=== PATIENT | female | born 1940 | race Caucasian/White ===

== ENCOUNTER 2017-11-10 13:34 | Outpatient (CLI) | payer OTHER, SELFPAY ==
--- NOTE | 2017-11-10 14:21 | DI.DEXA_ITS ---
SYMPTOMS/DIAGNOSIS: OSTEOPENIA, M85.88 DEXA SCAN: DEXA scan was performed according to the usual protocol. Findings from the left hip scanning are a T score of 0.1 with left femoral neck T score of -0.3. Previous examination of September 2008 showed left hip T score of - 0.2. Scanning of the lumbar spine shows a T score of 3.4. Previous examination of September 2008 showed a lumbar T score of 0.1. Right forearm scanning shows a T score of -1.6. CONCLUSION: Findings consistent with osteopenia according to the WHO criteria. The lateral vertebral scanogram shows no evidence of a vertebral compression fracture.
== END 2017-11-10 13:54 ==
PROVIDERS: PCP Family Medicine; Visit Provider Family Medicine
DX: M85.88 Other specified disorders of bone density and structure, other site (principal)
CPT/HCPCS: 77080

== ENCOUNTER 2018-06-10 09:54 | Outpatient (CLI) | payer OTHER, SELFPAY ==
--- NOTE | 2018-06-10 09:51 | DI.RAD_ITS ---
SYMPTOM/DIAGNOSIS: LT SHOULDER PAIN LEFT SHOULDER: The humeral head rides high in the glenoid and there is narrowing of the acromiohumeral space. There is sclerosis of the acromion and superior portion of the humeral head. The findings would be consistent with a chronic rotator cuff tear.
== END 2018-06-10 10:14 ==
PROVIDERS: PCP Family Medicine; Visit Provider Orthopaedic Surgery
DX: M25.512 Pain in left shoulder (principal); M75.102 Unspecified rotator cuff tear or rupture of left shoulder, not specified as traumatic
CPT/HCPCS: 20610; 99201; 99213; 73030; J1040

== ENCOUNTER 2018-07-13 10:57 | Outpatient (CLI) | payer OTHER, SELFPAY ==
--- NOTE | 2018-07-13 11:10 | DI.RAD_ITS ---
SYMPTOM/DIAGNOSIS: RT KNEE PAIN RIGHT KNEE: Three views. No priors. There are post surgical changes of a right total knee replacement. No lucencies are seen in or about the orthopedic hardware to suggest loosening or infection. The bones are intact. The soft tissues are unremarkable. IMPRESSION: Right TKR.
== END 2018-07-13 11:17 ==
PROVIDERS: PCP Family Medicine; Referring Provider Family Medicine; Visit Provider Orthopaedic Surgery
DX: M25.561 Pain in right knee; Z96.651 Presence of right artificial knee joint; M25.512 Pain in left shoulder
CPT/HCPCS: 73562; 99211; 99212

== ENCOUNTER → 2018-09-14 10:14 | Outpatient (BNVA) | payer OTHER, SELFPAY | PROVIDERS: PCP Family Medicine; Referring Provider Family Medicine; Visit Provider Orthopaedic Surgery | DX: M25.512 Pain in left shoulder (principal); T84.84XA Pain due to internal orthopedic prosthetic devices, implants and grafts, initial encounter; Z96.651 Presence of right artificial knee joint; M75.82 Other shoulder lesions, left shoulder | CPT/HCPCS: 20610; 99211; 99213; J1040 ==

== ENCOUNTER 2018-10-15 10:33 | Outpatient (REF) | payer OTHER, SELFPAY ==
[2018-10-15 19:46] LABS: ALT 20 U/L (12-78); AST 18 U/L (15-37); Albumin 3.7 g/dL (3.4-5.0); Alkaline Phosphatase 86 U/L (46-116); Anion Gap 10.5 mmol/L (3-11); BUN 14 mg/dL (7-18); Bilirubin, Total 0.7 mg/dL (0.2-1.0); CO2 25.5 mmol/L (21.0-32.0); CREATININE 0.74 mg/dL (0.55-1.02); Calcium 8.6 mg/dL (8.5-10.1); Chloride 107 mmol/L (98-107); Glucose 94 mg/dL (70-100); Potassium 4.1 mmol/L (3.5-5.1); Sodium 143 mmol/L (136-145); Total Protein 7.3 g/dL (6.4-8.2)
[2018-10-15 19:58] LABS: HCT 36.8 % (36.0-46.0); HGB 10.7 g/dL (12.0-15.5); Mean Corp. HGB Concentration 29.1 g/dL (32.0-36.0); Mean Corpuscular Hemoglobin 21.4 pg (27.0-33.0); Mean Corpuscular Volume 73.6 fL (80-95); Platelet Count 408 x1000/uL (130-400); RBC Distribution Width 22.1 % (11.7-14.6)
[2018-10-19 10:59] LABS: Ferritin 19 ng/mL (8-388)
== END 2018-10-15 10:53 ==
LOC: NCHCN 10:33
PROVIDERS: PCP Family Medicine; Visit Provider Family Medicine
DX: C50.912 Malignant neoplasm of unspecified site of left female breast (principal); R01.1 Cardiac murmur, unspecified; D64.9 Anemia, unspecified
CPT/HCPCS: 80053; 85027; 82728

== ENCOUNTER 2018-11-18 15:42 | Outpatient (REF) | payer OTHER, SELFPAY ==
[2018-11-18 21:56] LABS: HGB 12.9 g/dL (12.0-15.5); Mean Corpuscular Hemoglobin 24.9 pg (27.0-33.0); Mean Platelet Volume 10.4 fL (8.0-11.0); Platelet Count 380 x1000/uL (130-400); RBC 5.18 m/cumm (4.00-5.20); RBC Distribution Width 29.9 % (11.7-14.6); White Blood Cell Count 5.54 k/cumm (4.4-10.8)
[2018-11-18 22:33] LABS: Ferritin 57 ng/mL (8-388)
== END 2018-11-18 16:02 ==
LOC: NCHCN 15:42
PROVIDERS: PCP Family Medicine; Visit Provider Family Medicine
DX: D64.9 Anemia, unspecified (principal); R60.0 Localized edema
CPT/HCPCS: 85027; 82728

== ENCOUNTER → 2018-12-13 10:00 | Outpatient (BNVA) | payer OTHER, SELFPAY | PROVIDERS: PCP Family Medicine; Referring Provider Family Medicine; Visit Provider Student in an Organized Health Care Education/Training Program | DX: M75.82 Other shoulder lesions, left shoulder (principal); M75.102 Unspecified rotator cuff tear or rupture of left shoulder, not specified as traumatic; M12.812 Other specific arthropathies, not elsewhere classified, left shoulder | CPT/HCPCS: 20610; 99214; J1040 ==

== ENCOUNTER → 2019-03-14 10:13 | Outpatient (BNVA) | payer OTHER, SELFPAY | PROVIDERS: PCP Family Medicine; Referring Provider Family Medicine; Visit Provider Student in an Organized Health Care Education/Training Program | DX: M75.102 Unspecified rotator cuff tear or rupture of left shoulder, not specified as traumatic (principal); M12.812 Other specific arthropathies, not elsewhere classified, left shoulder | CPT/HCPCS: 20610; 99212; 99213; J1040 ==

== ENCOUNTER → 2019-07-18 13:40 | Outpatient (BNVA) | payer OTHER, SELFPAY | PROVIDERS: PCP Family Medicine; Referring Provider Family Medicine; Visit Provider Student in an Organized Health Care Education/Training Program | DX: M75.102 Unspecified rotator cuff tear or rupture of left shoulder, not specified as traumatic (principal); M12.812 Other specific arthropathies, not elsewhere classified, left shoulder | CPT/HCPCS: 20610; 99213; J1040 ==

== ENCOUNTER 2019-10-18 21:03 | Outpatient (REF) | payer OTHER, SELFPAY ==
[2019-10-18 19:40] LABS: HCT 46.2 % (36.0-46.0); HGB 14.5 g/dL (11.2-15.7)
[2019-10-18 19:53] LABS: Anion Gap 8.5 mmol/L (3-11); BUN 13 mg/dL (7-18); CO2 26.5 mmol/L (21.0-32.0); CREATININE 0.72 mg/dL (0.55-1.02); Calcium 9.6 mg/dL (8.5-10.1); Chloride 105 mmol/L (98-107); Glucose 103 mg/dL (74-106); Potassium 4.1 mmol/L (3.5-5.1); Sodium 140 mmol/L (136-145); TSH (W/Ref FT4) 2.23 uIU/mL (0.36-3.74)
== END 2019-10-18 21:23 ==
LOC: NCHCN 21:03
PROVIDERS: PCP Family Medicine; Visit Provider Family Medicine
DX: R60.0 Localized edema (principal); D64.9 Anemia, unspecified; C50.912 Malignant neoplasm of unspecified site of left female breast
CPT/HCPCS: 80048; 84443; 85014; 85018

== ENCOUNTER → 2019-10-24 13:08 | Outpatient (BNVA) | payer OTHER, SELFPAY | PROVIDERS: PCP Family Medicine; Visit Provider Student in an Organized Health Care Education/Training Program | DX: M75.102 Unspecified rotator cuff tear or rupture of left shoulder, not specified as traumatic (principal); M12.812 Other specific arthropathies, not elsewhere classified, left shoulder; M21.41 Flat foot [pes planus] (acquired), right foot; M21.42 Flat foot [pes planus] (acquired), left foot | CPT/HCPCS: 20610; 99213; J1040 ==

== ENCOUNTER → 2020-01-26 09:57 | Outpatient (BNVA) | payer OTHER, SELFPAY | PROVIDERS: PCP Family Medicine; Referring Provider Family Medicine; Visit Provider Student in an Organized Health Care Education/Training Program | DX: M12.812 Other specific arthropathies, not elsewhere classified, left shoulder (principal); M75.102 Unspecified rotator cuff tear or rupture of left shoulder, not specified as traumatic | CPT/HCPCS: 20610; 99213; J1040 ==

== ENCOUNTER 2020-03-12 02:06 | Outpatient (CLI) | payer OTHER, SELFPAY ==
--- NOTE | 2020-03-12 14:24 | DI.MAMMO_ITS ---
EXAM: MG MAMMO SCREENING 60 MIN DUR CLINICAL HISTORY: PERSONAL H/O BREAST CA,Z12.39. TECHNIQUE: Bilateral full field digital CC and MLO mammographic images were obtained with 3D tomosyn thesis and utilizing computer aided detection (CAD). Additional mammographic views of the right breas t were performed. COMPARISON: Prior mammograms dating back to 2010, the most recent being January 2019. This patient underwent lumpectomy of the left breast 2009. FINDINGS: There are no new left breast findings. The lumpectomy site remain stable in appearance. In the opposite-right breast there is suggestion of nodular densities. These, however, compress out with additional spot 3D compression views. There are no malignant-appearing microcalcification group s. There is no new significant architectural distortion nor do skin thickening-retraction. IMPRESSION: No radiographic evidence of malignancy in left breast. Stable left breast lumpectomy site. Benign-appearing right breast findings. BI-RADS Category 2 - Benign Findings Breast Density - Category B - Scattered areas of fibroglandular density Breast density Category C or D implies that the patient has dense breast tissue. Dense breast tissue can make it harder to find cancer on a mammogram. Dense breast tissue is also associated with an incr eased risk of breast cancer. This information about the result of the mammogram report was provided to the patient to raise their awareness. Use this report when you speak with the patient about their risks for breast cancer, which includes their family history. At that time, you may recommend additional screening tests (Ultrasoun d or MRI) as these tests may add significant information. A negative radiographic report should not delay biopsy if a dominant or clinically suspicious mass is present. Up to ten percent of cancers are not identified on mammography. A negative report may reinforce clinical impression. Adenosis and dense breasts may obscure an underlying neoplasm. False positive reports average 6 to 10%. Patient will receive a letter notifying them of these results.
== END 2020-03-12 02:26 ==
PROVIDERS: PCP Family Medicine; Visit Provider Family Medicine
DX: Z12.31 Encounter for screening mammogram for malignant neoplasm of breast (principal); Z85.3 Personal history of malignant neoplasm of breast
CPT/HCPCS: 77063; 77067

== ENCOUNTER 2020-04-03 13:02 | Outpatient (CLI) | payer OTHER, SELFPAY ==
--- NOTE | 2020-04-03 10:45 | DI.RAD_ITS ---
EXAM: XR SHOULDER LT COMPLETE 2+V CLINICAL HISTORY: left shoulder pain. TECHNIQUE: 2D digital imaging was performed. COMPARISON: CR XR shoulder LT complete 2+V from 06/10/2018 CR XR knee RT 3V AP,lat,jen from 07/13/2018 FINDINGS: There has been further interval erosion of the distal clavicle and undersurface of the acromion. The acromion is markedly thinned. There is no significant deformity of the humeral head. There is flat tening of the humeral head superiorly. The humeral head is again noted to be high riding drafter assistant w ith a chronic rotator cuff tear. There is spurring at the glenoid. IMPRESSION: Severe deformities of the distal clavicle, acromion and humeral head. Findings could the secondary t o longstanding rotator cuff tear and or rheumatoid arthritis. DATA REPOSITORY: RADIATION DOSE DELIVERED:
== END 2020-04-03 13:22 ==
PROVIDERS: PCP Family Medicine; Referring Provider Family Medicine; Visit Provider Student in an Organized Health Care Education/Training Program
DX: M25.512 Pain in left shoulder (principal); M95.8 Other specified acquired deformities of musculoskeletal system; M75.102 Unspecified rotator cuff tear or rupture of left shoulder, not specified as traumatic; M12.812 Other specific arthropathies, not elsewhere classified, left shoulder
CPT/HCPCS: 99213; 73030

== ENCOUNTER → 2020-05-15 13:05 | Outpatient (BNVA) | payer OTHER, SELFPAY | PROVIDERS: PCP Family Medicine; Referring Provider Family Medicine; Visit Provider Student in an Organized Health Care Education/Training Program | DX: M75.102 Unspecified rotator cuff tear or rupture of left shoulder, not specified as traumatic (principal); M12.812 Other specific arthropathies, not elsewhere classified, left shoulder | CPT/HCPCS: 20610; 99213; J1040 ==

== ENCOUNTER → 2020-08-08 09:57 | Outpatient (BNVA) | payer OTHER, SELFPAY | PROVIDERS: PCP Family Medicine; Referring Provider Family Medicine; Visit Provider Student in an Organized Health Care Education/Training Program | DX: M75.102 Unspecified rotator cuff tear or rupture of left shoulder, not specified as traumatic (principal); M12.812 Other specific arthropathies, not elsewhere classified, left shoulder | CPT/HCPCS: 20610; 99213; J1040 ==

== ENCOUNTER → 2020-12-12 09:57 | Outpatient (BNVA) | payer OTHER, SELFPAY | PROVIDERS: PCP Family Medicine; Referring Provider Family Medicine; Visit Provider Student in an Organized Health Care Education/Training Program | DX: M75.102 Unspecified rotator cuff tear or rupture of left shoulder, not specified as traumatic (principal); M12.812 Other specific arthropathies, not elsewhere classified, left shoulder | CPT/HCPCS: 20610; 99213; J1040 ==

== ENCOUNTER 2021-03-18 01:45 | Outpatient (CLI) | payer MEDICARE, SELFPAY ==
--- NOTE | 2021-03-18 14:00 | DI.US_ITS ---
APPROVED REPORT EXAM: Comprehensive 2D, Doppler, and color-flow Echocardiogram Other Information Study Quality: Fair. Technically limited study due to body habitus. Conclusion Normal left ventricular wall thickness and chamber size. Estimated ejection fraction is 55 to 60%. There is hypokinesis of the inferior and posterior strickland Normal right ventricular size and systolic function Both atria are normal in size The aortic valve is trileaflet and sclerotic without stenosis or regurgitation Mitral annular calcification . Mild mitral regurgitation Normal tricuspid valve with trace regurgitation. Estimated right ventricular systolic pressure is no rmal at 26 mmHg Mildly dilated ascending aorta Wall motion Left Ventricle The left ventricle is normal size. The left ventricular systolic function is normal. The left ventric ular ejection fraction is within the normal range. There is normal left ventricular wall thickness. I nferior and posterior wall motion abnormalities There is no ventricular septal defect visualized. LVE F is 55-60%. Right Ventricle The right ventricle is normal size. The right ventricular systolic function is normal. The RVSP is 26 .6 mmHg. Atria The left atrium size is normal. The right atrium size is normal. The interatrial septum is intact wit h no evidence for an atrial septal defect. Aortic Valve The Aortic valve is sclerotic. Aortic valve is trileaflet. There is no aortic valvular stenosis. No a ortic regurgitation is present. Mitral Valve Mild mitral annular calcification. No evidence of mitral valve stenosis. Mild mitral regurgitation. Tricuspid Valve The tricuspid valve is normal in structure. There is no tricuspid valve stenosis. Trace tricuspid reg urgitation. Pulmonic Valve The pulmonary valve is normal in structure. There is no pulmonic valvular stenosis. Trace pulmonic re gurgitation. Great Vessels The aortic root is normal in size. The ascending aorta is mildly dilated. Aortic arch is not well vis ualized. IVC is normal in size and collapses >50% with inspiration. Pericardium There is no pericardial effusion. 2D Dimensions IVSD d PLAX 0.96 cm F: 0.6-1.0 LV Vol A2C d MOD 70.9 mL LVPW d PLAX 0.96 cm F: 0.6 - 1.0 LV Vol A4C d MOD 91.8 mL LVID d PLAX 4.31 cm F: 3.8 - 5.2 LA vol/ BSA A4C s A-L 25.1 mL/m2 LVDs 3.10 cm F: 2.2 - 3.5 LA Area A4C s MOD 17.21 cm2 Ao Root d 3.26 cm F: 2.7 - 3.3 LV EF A4C MOD 50.5 % Ao Asc Diam d 3.62 cm F: 2.3 - 3.1 LV EF A2C MOD 50.1 % LV EF Teichholz 53.5 % LV EF Biplane MOD 50.4 % LVEF (Huddleston's) 50.39 % F: 54 - 74 SV 41.14 mL LV Volume 62.89 mL F: 46 - 106 SV Index 22.25 mL/m2 LV Volume Index 33.99 mL/m2 F: 29 - 61 LV Vol Biplane MOD 81.6 mL FS 27.35 % M-Mode TAPSE 1.96 cm (M/F) >1.7 LV Diastology MV E' medial 0.051 (>0.07 m/s) E/A Ratio 0.8 LV E/e MED 18.20 (<14) MV E Vmax 0.93 (0.4-1.3 m/s) MV E' lateral 0.049 (>0.1 m/s) MV A Vmax 1.15 (0.4-1.3 m/s) LV E/e LAT 18.95 (<14) MV E/A Ratio 0.80 MV E/E' medial 18.25 MV E/E' lateral 18.98 Aortic Valve LVOT Area 2.88 cm2 AoV Area Vmax 1.57 cm2 LVOT Vmax 1.05 m/s AoV Area/ BSA (Vmax) 0.85 cm2/m2 LVOT Mean Ed. 0.67 m/s GIANNA Mean Ed. 1.30 cm2 LVOT Peak Grad 4.4 mmHg GIANNA Mean Ed. Index 0.71 cm2/m2 LVOT Mean Grad 2.2 mmHg LVOT VTI 0.182 m LVOT Diam s 1.90 cm AoV Vmax 1.93 m/s Velocity Ratio 0.54 AoV Mean Ed. 1.49 m/s AoV Peak Grad 14.9 mmHg LVOT SV 52.41 mL AoV Mean Grad 9.6 mmHg AoV VTI 0.320 m AoV Area VTI 1.64 cm2 AoV Area/ BSA (VTI) 0.89 cm/m2 Mitral Valve MV DT 273 (160-240 msec) MV PHT 79 msec MV Area PHT 2.77 cm2 MV VTI 0.289 m MV Area VTI 1.82 (4.0-6.0 cm2) Pulmonary Valve PV Vmax 1.04 (0.5-1.5 m/s) RVOT Peak Gr. 2.16 mmHg PV Peak Grad 4.4 mmHg RVOT Mean Gr. 1.00 mmHg PV Mean Grad 2.3 mmHg RVOT VTI 0.104 m PV VTI 0.148 m RVOT Vmax 0.74 m/s Tricuspid Valve TR Peak Grad 23.5 mmHg TR Vmax 2.43 m/s RA Pressure 3.00 mmHg RVSP (TR) 26.6 mmHg
--- NOTE | 2021-03-18 15:06 | DI.MAMMO_ITS ---
Exam(s) MG MAMMO SCREENING 60 MIN DUR EXAM: MG MAMMO SCREENING 60 MIN DUR CLINICAL HISTORY: SCREENING, PERSONAL H/O BREAST CA,C50.912 TECHNIQUE: Mammograms were interpreted according to the usual protocol including computer analysis w [employer] CAD system, tomosynthesis and C-view imaging. COMPARISON: 2011 through 2020 FINDINGS: The breasts are composed of scattered fibroglandular densities, Breast Density category B. The patient has a history left lumpectomy. There are dystrophic calcifications in and scarring at th e biopsy site. This has a stable appearance. No suspicious masses or suspicious microcalcifications are seen in either breast.. No abnormal axillary lymph nodes are seen. There has been no significant change from prior exams. IMPRESSION: BI-RADS Cat 2 - Benign Findings Yearly screening mammography is recommended. Breast Density - Category B, scattered fibroglandular densities. A negative radiographic report should not delay biopsy if a dominant or clinically suspicious mass is present. Up to ten percent of cancers are not identified on mammography. A negative report may reinforce clinical impression. Adenosis and dense breasts may obscure an underlying neoplasm. False positive reports average 6 to 10%. Patient will receive a letter notifying them of these results.
== END 2021-03-18 02:05 ==
PROVIDERS: PCP Family Medicine; Visit Provider Family Medicine
DX: R06.09 Other forms of dyspnea (principal); R60.0 Localized edema; Z12.31 Encounter for screening mammogram for malignant neoplasm of breast; I34.0 Nonrheumatic mitral (valve) insufficiency; Z85.3 Personal history of malignant neoplasm of breast
CPT/HCPCS: 77063; 77067; 93306

== ENCOUNTER → 2021-03-27 09:00 | Outpatient (BNVA) | payer MEDICARE, SELFPAY | PROVIDERS: PCP Family Medicine; Referring Provider Family Medicine | DX: M75.102 Unspecified rotator cuff tear or rupture of left shoulder, not specified as traumatic (principal); M12.812 Other specific arthropathies, not elsewhere classified, left shoulder | CPT/HCPCS: 20610; J1040 ==

== ENCOUNTER 2021-04-26 08:15 | Outpatient (CLI) | payer MEDICARE, SELFPAY | END 2021-04-26 08:16 | disposition home or self-care (01) | LOC: DI.CARD 08:16 | PROVIDERS: PCP Family Medicine; Visit Provider Internal Medicine Cardiovascular Disease | DX: R69 Illness, unspecified (principal) | CPT/HCPCS: 93010 ==

== ENCOUNTER 2021-05-13 08:34 | Outpatient (CLI) | payer MEDICARE, SELFPAY ==
--- NOTE | 2021-05-13 08:30 | RT.EKG_ITS ---
APPROVED REPORT Exam: Resting ECG Reason for Exam: ZHANG Patient Location: O HR:108 bpm ECG Measurements Heart Rate 108 AXIS MO 158 P 18 QRSd 104 QRS -50 QT 354 T 21 QTc 475 Conclusion Sinus tachycardia...rate> 99 Incomplete RBBB and LAFB...axis(240,-40), S>R II III aVF Right ventricular hypertrophy...prominent R or R' w/ RAD or SHELBY
== END 2021-05-13 08:35 | disposition home or self-care (01) ==
LOC: DI.CARD 08:35
PROVIDERS: PCP Family Medicine; Visit Provider Internal Medicine Cardiovascular Disease
DX: R06.00 Dyspnea, unspecified (principal); R00.0 Tachycardia, unspecified; R94.31 Abnormal electrocardiogram [ECG] [EKG]
CPT/HCPCS: 93010

== ENCOUNTER → 2021-05-13 10:35 | Outpatient (BNVA) | payer MEDICARE, SELFPAY | PROVIDERS: PCP Family Medicine; Referring Provider Family Medicine; Visit Provider Internal Medicine Cardiovascular Disease | DX: R07.9 Chest pain, unspecified (principal); E78.5 Hyperlipidemia, unspecified; R06.00 Dyspnea, unspecified | CPT/HCPCS: 93005; 99204; 99214 ==

== ENCOUNTER 2021-06-04 00:49 | Outpatient (CLI) | payer MEDICARE, SELFPAY ==
--- NOTE | 2021-06-04 09:00 | DI.NM_ITS ---
APPROVED REPORT Exam: Pharmacologic Patient Location: Out-Patient Room/Bed: Stress Nurse: Milka William RN Ordering Provider:JOHN ALARCON, Contact Number: BMI: 35.47 Baseline Rhythm: Sinus Rhythm w/ PVCs Comment: abnormal R wave progression Indications: DYSPNEA ON EXERTION. Medical History Medical History: HLD, Systolic heart murmur, Mild memory disturbance, Depression, Breast cancer, Lump ectomy (left) Cardiac Medications: Aspirin Allergies: No known drug allergies Cardiac Risk Factors: FHX of CAD, Hyperlipidemia, Obesity Previous Cardiac Procedures: None Pretest Chest Pain Characteristics: No chest pain Exercise History: Sedentary Physical Disabilities: Feet Lung Sounds: Clear to auscultation Heart Sounds: Regular Stress Test Details Test: Pharmacologic stress testing performed using 0.4 mg of regadenoson per 5 mL given IV over 10 s econds. Reason for pharmacologic stress test: physical limitation. Nuclear Acquisition: Rest Tc-99m/Stress Tc-99m 1 day Rest Isotope: Tc-99m Sestamibi. Dose: 12.0 Date: 06/04/2021 Injection Time: 0930 Stress Isotope: Tc-99m Sestamibi. Dose: 36.5 Date: 06/04/2021 Injection Time: 1126 HR Resting HR Supine: 93 bpm Max Heart Rate (APMHR): 137.808057 bpm Target HR (85% APMHR): 116.804009 bpm Max HR Achieved: 107 bpm % of APMHR: 78.10 Recovery HR: 101 bpm BP Resting BP Supine: 132/78 mmHg Max BP: 138/72 mmHg Recovery BP: 132/70 mmHg ECG Resting ECG: Sinus Rhythm Ectopy: PVCs Stress ECG: Sinus Tachycardia ST Change: No significant ST segment changes noted, No significant ST segment changes noted Arrhythmia: PVCs, couplets, occasional PAC Recovery ECG: Sinus Tachycardia Recovery ST Change: No significant ST segment changes noted Recovery Arrhythmia: PVCs, couplets, occasional PAC Clinical Stress Symptoms: None Rate Pressure Product: [id number] Stress ECG Conclusion 1. The resting electrocardiogram showed left anterior fascicular block and abnormal R wave progressio n 2. Patient underwent low level exercise coupled with pharmacologic stress 3. Peak heart rate achieved was 78% of predicted for age 4. The electrocardiographic portion of the test was nondiagnostic due to inadequate heart rate 5. 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 Radiologist Interpretation by: Elian Johnson MD Interpretation Date/Time: 06/05/2021 08:58:52
[2021-06-04] MEDS: Regadenoson 0.4 MG/5 ML SYR IVP (11:19)
== END 2021-06-04 01:09 ==
PROVIDERS: PCP Family Medicine; Visit Provider Internal Medicine Cardiovascular Disease
DX: R06.09 Other forms of dyspnea (principal); I44.4 Left anterior fascicular block
CPT/HCPCS: 93016; 93018; 78452; 93017; J2785

== ENCOUNTER 2021-06-14 02:52 | Outpatient (CLI) | payer MEDICARE, SELFPAY ==
[2021-06-14 11:18] LABS: Calculated LDL 113 mg/dL (<100); Cholesterol 209 mg/dL (<200); HDL Cholesterol 71 mg/dL (40-60); Triglyceride 125 mg/dL (<150)
== END 2021-06-14 02:53 | disposition home or self-care (01) ==
LOC: LBO 02:52
PROVIDERS: PCP Family Medicine; Visit Provider Internal Medicine Cardiovascular Disease
DX: R07.9 Chest pain, unspecified (principal)
CPT/HCPCS: 36415; 80061

== ENCOUNTER → 2021-06-18 09:51 | Outpatient (BNVA) | payer MEDICARE, SELFPAY | PROVIDERS: PCP Family Medicine; Referring Provider Family Medicine; Visit Provider Internal Medicine Cardiovascular Disease | DX: R06.00 Dyspnea, unspecified (principal) | CPT/HCPCS: 99214; 99213 ==

== ENCOUNTER 2021-07-30 19:08 | Outpatient (REF) | payer MEDICARE, SELFPAY ==
[2021-07-30 19:46] LABS: Anion Gap 5.9 mmol/L (3-11); BUN 17 mg/dL (7-18); CO2 28.1 mmol/L (21.0-32.0); CREATININE 0.9 mg/dL (0.55-1.02); Calcium 9.4 mg/dL (8.5-10.1); Chloride 108 mmol/L (98-107); Glucose 120 mg/dL (74-106); Potassium 4.1 mmol/L (3.5-5.1); Sodium 142 mmol/L (136-145); TSH (W/Ref FT4) 1.95 uIU/mL (0.36-3.74)
== END 2021-07-30 19:09 | disposition home or self-care (01) ==
LOC: NCHCN 19:08
PROVIDERS: PCP Family Medicine; Visit Provider Family Medicine
DX: R60.0 Localized edema (principal)
CPT/HCPCS: 80048; 84443

== ENCOUNTER → 2021-08-09 00:05 | Outpatient (CLI) | payer MEDICARE, SELFPAY ==
--- NOTE | 2021-08-09 | DI.DEXA_ITS ---
Exam(s) XR DEXA BONE DENSITY W/WO SHEA EXAM: XR DEXA BONE DENSITY W/WO SHEA CLINICAL HISTORY: OSTEOPENIA M85.80 MENOPAUSAL Z78.0 SCREENING TECHNIQUE: COMPARISON: Comparison examination is 11/10/2017. FINDINGS: Lateral Spine Image: Unremarkable. No compression deformities identified. Left hip: Total T-Score: -0.4. This compares to 0.1 on the prior examination. This is a decrease in the bone m ineral density. Total Z-Score: 1.9 T- and Z-scores: Within normal limits. There is osteopenia in the femoral neck with a T-score of -2.1 . Lumbar Spine: Total T-Score: 3.7. This compares to 3.4 on the prior examination. This is an increase in the bone m ineral density. Total Z-Score: 6.5 T- and Z-scores: Within normal limits. IMPRESSION: No evidence of osteoporosis.
== END ==
PROVIDERS: PCP Family Medicine; Visit Provider Family Medicine
DX: M85.88 Other specified disorders of bone density and structure, other site (principal); Z78.0 Asymptomatic menopausal state
CPT/HCPCS: 77080

== ENCOUNTER → 2021-08-12 11:13 | Outpatient (BNVA) | payer MEDICARE, SELFPAY | PROVIDERS: PCP Family Medicine; Referring Provider Family Medicine; Visit Provider Physician Assistant | DX: M75.102 Unspecified rotator cuff tear or rupture of left shoulder, not specified as traumatic (principal); M12.812 Other specific arthropathies, not elsewhere classified, left shoulder | CPT/HCPCS: 20610; J1040 ==

== ENCOUNTER 2021-11-10 09:48 | Emergency (ER) | payer MEDICARE, SELFPAY ==
[2021-11-10 10:11] VITALS: BP 107/73; PULSE 102; RESP 16; TEMP 36.4; O2SAT 95
--- NOTE | 2021-11-10 10:15 | DI.RAD_ITS ---
Exam(s) XR RIBS RT W PA LAT CHEST EXAM: XR RIBS RT W PA LAT CHEST CLINICAL HISTORY: Fall, right rib pain TECHNIQUE: 2D digital imaging was performed. Two views of the chest and three views of the right ri bs were performed. COMPARISON: CR XR shoulder LT complete 2+V from 06/10/2018 CT,NM,TMT NM MPI REST STRESS GRP from 06/04/2021 CR XR DEXA BONE DENSITY W/WO SHEA from 08/09/2021 FINDINGS: MEDIASTINUM: Tortuous, calcified aorta. HEART: Normal size. PULMONARY VASCULATURE: Normal. LUNGS: Fibrotic changes. Blunting at the right costophrenic angle. R. PLEURAL SPACE: Minimal blunting is noted at the right costophrenic angle which could be chronic or re present a tiny effusion.. No pneumothorax. BONE:Degenerative changes are noted in the spine and shoulders. RIGHT RIBS: There are multiple lateral right rib fractures which are difficult which are not well del ineated due to overlap. Involve at least the 3rd through 6th ribs. OTHER FINDINGS:Normal. IMPRESSION: 1. Minimal blunting at the right costophrenic angle. 2. Multiple lateral right rib fractures. DATA REPOSITORY: RADIATION DOSE DELIVERED:
--- NOTE | 2021-11-10 10:15 | ED.GENADUL_ITS ---
Discharge Plan Disposition Patient Disposition: HOME Condition: Stable Discharge Details Clinical Impression: Multiple fractures of ribs of right side, Pleural effusion on right Primary Care Provider: Jeanne Mosqueda V ED Provider: Norma Villegas Home Meds and New Rx's Prescriptions: Continued biotin 10 mg tablet 10 mg PO DAILY (DME) Custom Accomodative Shoes Qty: 1 0RF Rx Instructions: Please fit and make bilateral accomodative shoes for extreme width of feet with collapse and medial prominence. multivitamin [Daily Vitamin] 1 EACH tablet 1 ea PO DAILY calcium carbonate-vitamin D3 [Calcium 600 with Vitamin D3] 1 EACH tablet 1 ea PO BID aspirin [Aspirin Low-Strength] 81 MG tablet,chewable 81 mg PO DAILY glucosamine-chondroitin [Osteo Bi-Flex] 1 EACH tablet 1 ea PO BID cetirizine [Zyrtec] 10 mg tablet 10 mg PO DAILY PRN ferrous sulfate 325 mg (65 mg iron) tablet 325 mg PO DAILY furosemide [Lasix] 20 mg tablet 20 mg PO DAILY Qty: 90 3RF Rx Instructions: 1 daily as needed Discharge Instructions Instructions: Rib Fracture (ED) Additional Instructions: X-ray shows broken ribs on the right side and small amount of fluid in your right lower lung. Take 400mg Ibuprofen every 4-6 hours as needed for pain. Use incentive spirometer as directed. Return to the ER for any worsening shortness of breath, worsening pain, fever, productive cough or any concerns. Follow up with primary care provider in 3-5 days. Return to ED sooner if any worsening or concerns. Increase oral fluids. Please take Tylenol or Ibuprofen with food every 4-6 hours as needed for pain and swelling. Alternate ice and heat to the area. Referrals: Jeanne Mosqueda MD [Primary Care Provider] - 5 days Medical Decision Making 1124: Spoke with Dr. Rowell, who recommends incentive spirometer, alternating tylenol and Ibuprofen, and alternating ice and heat. Imaging Data Radiologic Study: Imaging: X-Ray Radiologist's impression: Imaging protocol: Radiologic exam of the chest. Views: 2 views. COMPARISON: No relevant prior studies available. FINDINGS: Lungs: Unremarkable. No consolidation or pulmonary edema. Pleural spaces: Small right pleural effusion with pleural thickening in the lateral right mid lung. No pneumothorax. Heart/Mediastinum: Heart size is normal. The thoracic aorta is tortuous and calcified. The gail are not enlarged. Bones/joints: Please refer to the concu rrently performed right rib series, reported separately. IMPRESSION: Small right pleural effusion. Imaging protocol: Radiologic exam of the Right ribs. Views: 2 views. COMPARISON: No relevant prior studies available. FINDINGS: Bones/joints: The bones are diffusely demineralized, which limits sensitivity for detection of acute nondisplaced fractures. There are multiple acute lateral right rib fractures these in ball of the lateral right 3rd, 4th, 5th, and 6th ribs and possibly the 7th rib. There are degenerative changes throughout the spine and in both shoulders. Soft tissues: Unremarkable. IMPRESSION: Nondisplaced fractures of the lateral right 3rd-6th ribs. HPI General Mode of arrival: ambulatory . Date/Time Provider Initiated Documentation: 11/10/21 10:13 . Limitations to Documentation: no limitations . Information obtained by: patient, RN notes reviewed and old records reviewed . HPI Narrative: 81-year-old female presents to the ER status post fall 1 week ago which she reports tripped on a omega surface. She landed on her right side. She is complaining of posterior right rib pain. Denies any head pain, neck pain or loss of consciousness. She denies any shortness of breath. Denies any shoulder elbow or wrist pain. Denies any pelvis pain. She also reports some intermittent right leg pain. No obvious deformity or swelling. She is accompanied by her family past medical history includes hysterectomy lumpectomy, osteoarthritis, obesity, heart murmur, diverticulosis. Related Data Home Medications Medication Instructions Recorded Confirmed aspirin 81 mg chewable tablet 81 mg PO DAILY 02/17/13 08/12/21 (Aspirin Low-Strength) calcium carbonate 600 mg-vitamin 1 ea PO BID 02/17/13 08/12/21 D3 5 mcg (200 unit) tablet (Calcium 600 with Vitamin D3) glucosamine-chondroitin 250 mg-200 1 ea PO BID 02/17/13 08/12/21 mg tablet (Osteo Bi-Flex) multivitamin (Daily Vitamin tablet) 1 ea PO DAILY 02/17/13 08/12/21 Custom Accomodative Shoes #1 ea 10/24/19 08/12/21 biotin 10 mg tablet 10 mg PO DAILY 10/24/19 08/12/21 cetirizine 10 mg tablet (Zyrtec) 10 mg PO DAILY PRN 03/21/21 08/12/21 ferrous sulfate 325 mg (65 mg 325 mg PO DAILY 03/21/21 08/12/21 iron) tablet furosemide 20 mg tablet (Lasix) 20 mg PO DAILY #90 tabs 10/14/21 Previous Rx's Medication Instructions Recorded Custom Accomodative Shoes #1 ea 10/24/19 furosemide 20 mg tablet (Lasix) 20 mg PO DAILY #90 tabs 10/14/21 Allergies Allergy/AdvReac Type Severity Reaction Status Date / Time No Known Allergies Allergy Verified 11/10/21 10:02 General Stated Complaint: Orthopedic MIKEY: 3 Review of Systems All systems reviewed & are unremarkable except as noted in HPI and below PFSH All Active Problems (Updated 11/10/21 @ 11:30 by Norma Villegas NP) Multiple fractures of ribs of right side (Acute) Pleural effusion on right (Acute) Hyperlipidemia (Acute) ZHANG (dyspnea on exertion) (Acute) Acquired bilateral flat feet (Acute) Left rotator cuff tear arthropathy (Chronic) 80mg Depo-Medrol injection: 08/08/2020, 12/12/2020, 03/27/2021 Left shoulder pain (Acute) Facial basal cell cancer (Acute) Medical History Anemia ASCENDING COLON AVM Basal cell carcinoma of nose BREAST CANCER LEFT Diverticulosis Edema LIMB Foot deformity Hallux valgus Heart murmur SYSTOLIC Heartburn Hip pain, left Macular degeneration Mild memory disturbance Obesity Osteoarthritis of both hands Osteopenia Skin lesion TUBULAR ADENOMAS Uterine prolapse CONGENITAL BODY ASYMMETRY Surgical History Abdominal hysterectomy (~10/2011) PARTIAL Breast, Lumpectomy (12/09/09) LEFT Colonoscopy - IV Sedation (11/19/09) Hx of total knee replacement BILATERAL Recurrent major depression in partial remission (11/19/09) ASCENDING COLON AVM Family History Mother Alzheimer's disease Father Heart disease Lung cancer Sister Cirrhosis of liver Brother Acute myocardial infarction at 58 of [place] Brother Diabetes Heart disease [place] Brother Heart disease Stroke Son Heart disease age 40 [place] with stents Social History Smoking/Tobacco Use Status: Never Smoking risk assessment performed?: Yes Alcohol Intake: current Alcohol Intake frequency: 0-2 drinks per day Drug use: Never Substance use type: does not use Household members: none Current gender identity: female What type of physical activity do you participate in: none Do you feel safe at home: Yes Exam Narrative Exam Narrative: General: Well Developed, Awake and Alert, conversant. Skin: Warm and Dry HEENT: Head: No palpable deformities, Normocephalic Eyes: Pupils PERRLA, EOM's intact. No periorbital eccymosis or step off Ears: Canal patent. Tympanic membranes are clear . No durbin's sign, no hemptympanum. Nose/Face: Atraumatic. Facial bones nontender to palpation and stable with manipulation. Mouth/Throat: No intraoral trauma. Teeth and mandible are intact. Neck: No midline tenderness, no step off, no deformity to palpation of C-spine. Trachea midline. Chest: No surface trauma. Nontender without crepitus or deformity. Lungs clear to ausculatation bilaterally. Heart: RRR, no rubs, murmurs or gallop. Abdomen: No abrasions, ecchymosis, or surface trauma. Nondistended. Nontender to palpation no guarding, rebound, or rigidity. Pelvis: Nontender to palpation and stable to compression. Femoral pulses strong and equal Extremities: no surface trauma. Sensation intact. Peripheral pulses intact and equal. Neuro: ANO x4, GCS 15, cranial nerves II through XII intact. Motor and sensory exam nonfocal. Reflexes are symmetric. Chest Chest: normal inspection of the chest and tenderness rib right mid-scapular line involving the 9th rib Resp Effort & Inspection: normal respiratory effort and able to speak in complete sentences Auscultation: clear to auscultation bilaterally Course Vital Signs Vital signs: Vital Signs Temperature 36.4 C 11/10/21 10:11 Pulse 102 H 11/10/21 10:11 Respiratory Rate 16 11/10/21 10:11 Blood Pressure 107/73 11/10/21 10:11 Pulse Oximetry 95 11/10/21 10:11 Temperature 36.4 C 11/10/21 10:11 Temperature Source Oral 11/10/21 10:11 Pulse 102 H 11/10/21 10:11 Respiratory Rate 16 11/10/21 10:11 Respiratory Effort Non-Labored 11/10/21 10:02 Blood Pressure 107/73 11/10/21 10:11 Pulse Oximetry 95 11/10/21 10:11 Oxygen Delivery Method Room Air 11/10/21 10:11 Oxygen Flow Rate 0 11/10/21 10:11 Pain Level 5 11/10/21 09:58 PAWSS Have you Been Recently Intoxicated or Drunk Within the Last 30 days?: No Have you Ever Experienced Previous Episodes of Alcohol Withdrawal?: No Have you ever Experienced Withdrawal Seizures?: No Have you ever Experienced Delirium Tremens(DT)s?: No Have you ever undergone Alcohol Rehabilitation Treatment (i.e, inpt ot outpatient treatment programs)?: No Have you ever Experienced Blackouts?: No Have you ever Combined Alcohol with other Downers within the last 90 days?: No Have you ever Combined Alcohol with any other Substance of Abuse during the last 90 days?: No Positive Blood Alcohol level on Presentation? [PCS.BAL]: No Evidence of Increased Autonomic Activity (i.e. HR>120, tremor, sweating, agitation, nausea)?: No Result: 0
--- NOTE | 2021-11-10 11:07 | DI.VRAD_ITS ---
PROCEDURE INFORMATION: Exam: XR Right Ribs Exam date and time: 11/10/2021 10:49 AM Age: 81 years old Clinical indication: Injury or trauma; Other: Fall, right rib pain; Rib area; Blunt trauma (contusions or hematomas) TECHNIQUE: Imaging protocol: Radiologic exam of the Right ribs. Views: 2 views. COMPARISON: No relevant prior studies available. FINDINGS: Bones/joints: The bones are diffusely demineralized, which limits sensitivity for detection of acute nondisplaced fractures. There are multiple acute lateral right rib fractures these in ball of the lateral right 3rd, 4th, 5th, and 6th ribs and possibly the 7th rib. There are degenerative changes throughout the spine and in both shoulders. Soft tissues: Unremarkable. IMPRESSION: Nondisplaced fractures of the lateral right 3rd-6th ribs. PROCEDURE INFORMATION: Exam: XR Chest Exam date and time: 11/10/2021 10:49 AM Age: 81 years old Clinical indication: Injury or trauma; Other: Fall, right rib pain; Rib area; Blunt trauma (contusions or hematomas) TECHNIQUE: Imaging protocol: Radiologic exam of the chest. Views: 2 views. COMPARISON: No relevant prior studies available. FINDINGS: Lungs: Unremarkable. No consolidation or pulmonary edema. Pleural spaces: Small right pleural effusion with pleural thickening in the lateral right mid lung. No pneumothorax. Heart/Mediastinum: Heart size is normal. The thoracic aorta is tortuous and calcified. The gail are not enlarged. Bones/joints: Please refer to the concurrently performed right rib series, reported separately. IMPRESSION: Small right pleural effusion. Dictated and Authenticated by: Esther Quintanilla MD. Ordering:MATTHEW Green MD
[2021-11-10] MEDS: Ibuprofen 400 MG TAB PO (12:07)
== END 2021-11-10 11:45 | disposition home or self-care (01) ==
PROVIDERS: Emergency Provider Registered Nurse Emergency; PCP Family Medicine
DX: S22.41XA Multiple fractures of ribs, right side, initial encounter for closed fracture (principal); J90 Pleural effusion, not elsewhere classified; W01.0XXA Fall on same level from slipping, tripping and stumbling without subsequent striking against object, initial encounter
CPT/HCPCS: 99284; 71046; 71100

== ENCOUNTER 2022-01-22 20:52 | Inpatient (IN) | payer MEDICARE, SELFPAY ==
[2022-01-22] VITALS (35 sets, daily range): BP systolic 65–122; BP diastolic 17–91; PULSE 92–170; RESP 21–44; O2SAT 89–94
--- NOTE | 2022-01-22 20:45 | RT.EKG_ITS ---
APPROVED REPORT Exam: Resting ECG Reason for Exam: dizzy Patient Location: E HR:110 bpm ECG Measurements Heart Rate 110 AXIS MN 150 P 29 QRSd 137 QRS -64 QT 396 T -34 QTc 541 Conclusion Sinus tachycardia with irregular rate...V-rate 98-135, variation>10% Right bundle branch block...QRSd>120, terminal axis(90,270) Probable inferior infarct, age indeterminate...Q>35mS, T neg, II III aVF
--- NOTE | 2022-01-22 21:00 | DI.CT_ITS ---
Exam(s) CT HEAD WO EXAM: CT HEAD WO CLINICAL HISTORY: confusion. TECHNIQUE: Imaging Protocol: Axial computed tomography images with coronal and sagittal reformatted images were created and reviewed COMPARISON: No exams were available for comparison FINDINGS: There is moderate generalized cerebral atrophy and there is presumed old left parietal occipital inf arct. No evidence of acute intracranial hemorrhage, mass effect, or midline shift. The orbital structures are unremarkable. The temporal bone structures appear intact. Calvarium: Normal. Visualized Paranasal sinuses/Mastoids: Clear. IMPRESSION: No evidence of acute intracranial process. RADIATION DOSE DELIVERED: Total DLP Total DLP DATA REPOSITORY: All CT scans at this facility are submitted to the National Radiology Data Registry (NRDR) Dose Index Registry (DIR) with the [employer] (A[employer]). RADIATION OPTIMIZATION: All CT scans at this facility use at least one of these dose optimization te chniques: automated exposure control; mA and/or kV adjustment per patient size (includes targeted exa ms where dose is matched to clinical indication); or iterative reconstruction.
--- NOTE | 2022-01-22 21:00 | DI.RAD_ITS ---
Exam(s) XR CHEST 2V PA LATERAL EXAM: XR CHEST 2V PA LATERAL CLINICAL HISTORY: confusion, mental status change TECHNIQUE: COMPARISON: CR,XR XR RIBS RT W PA LAT CHEST from 11/10/2021 FINDINGS: The heart is at the upper limits of normal in size. Lungs are predominantly clear except for questio n of new area of faint opacity in the right upper mid lung zone, suspicious for developing pneumoniti s. No pleural effusion seen. IMPRESSION: Possible developing right-sided pneumonia, appropriate follow-up films requested. RADIATION DOSE DELIVERED: Total DLP
--- NOTE | 2022-01-22 21:04 | ED.GENADUL_ITS ---
Discharge Plan Disposition Patient Disposition: Admit to [facility] Condition: Stable Discharge Details Clinical Impression: Cellulitis of leg, right, Pneumonia, Acute kidney injury Primary Care Provider: Jeanne Mosqueda V ED Provider: Chava Can Home Meds and New Rx's Prescriptions: No Action biotin 10 mg tablet 10 mg PO DAILY (DME) Custom Accomodative Shoes Qty: 1 0RF Rx Instructions: Please fit and make bilateral accomodative shoes for extreme width of feet with collapse and medial prominence. multivitamin [Daily Vitamin] 1 EACH tablet 1 ea PO DAILY calcium carbonate-vitamin D3 [Calcium 600 with Vitamin D3] 1 EACH tablet 1 ea PO BID aspirin [Aspirin Low-Strength] 81 MG tablet,chewable 81 mg PO DAILY glucosamine-chondroitin [Osteo Bi-Flex] 1 EACH tablet 1 ea PO BID cetirizine [Zyrtec] 10 mg tablet 10 mg PO DAILY PRN ferrous sulfate 325 mg (65 mg iron) tablet 325 mg PO DAILY furosemide [Lasix] 20 mg tablet 20 mg PO DAILY Qty: 90 3RF Rx Instructions: 1 daily as needed Medical Decision Making 81-year-old female who lives independently but has plans to move in with her son at his home in [place] next week. She presents via EMS after neighbors found her to be confused in the home. EMS was called and the son began to drive from his home in [place]. Upon arrival the patient is pleasant but mildly confused. She has no neurologic deficits. She is noted to have had a question of incontinence of urine at home and an exam that reveals right lower extremity cellulitis that is new per her family. Differential includes UTI, cellulitis, dehydration, electrolyte abnormality, given mental status changes must broaden the differential diagnosis as well to include stroke or occult pneumonia.. Patient IV access established and laboratories obtained. Patient referred for CT imaging of the head, chest x- ray. Diagnostic studies: Elevated lactic acid of 2.5. White blood cell count is 14, hematocrit 42, platelets 262. Left shift present. BUN is 44 and creatinine 2.0. Magnesium slightly low at 1.7. Chest x-ray with question new right midlung patchy infiltrate. CT scan of the head unremarkable for acute process. Broad-spectrum antibiotic coverage initiated given patient's potential for sepsis. Fluids initiated for acute kidney injury. Patient will require admission. I discussed the case with the patient's son Alvaro Zamora who is in the area. His cell phone number is [phone]. He states his mother would want to have a brief trial (approximately 24 to 48 hours) of full resuscitation but would not want prolonged life support. Sign Out No HPI General Mode of arrival: EMS . Date/Time Provider Initiated Documentation: 01/22/22 20:55 . Limitations to Documentation: no limitations . Information obtained by: patient and EMS . History of Present Illness 81 year old F presents to the emergency department with the chief complaint of Confusion and incontinence of urine today, described as mild, and is localized to the head. Patient reports no radiation. Patient started experiencing this hour(s) and it has been intermittent and now resolved. No relieving factors improve symptom(s), No exacerbating factors reported . Patient notes confusion; denies fever/chills, headaches, loss of appetite, nausea/vomiting and syncope. Patient did receive the following treatments prior to arrival, none Related Data Home Medications Medication Instructions Recorded Confirmed aspirin 81 mg chewable tablet 81 mg PO DAILY 02/17/13 08/12/21 (Aspirin Low-Strength) calcium carbonate 600 mg-vitamin 1 ea PO BID 02/17/13 08/12/21 D3 5 mcg (200 unit) tablet (Calcium 600 with Vitamin D3) glucosamine-chondroitin 250 mg-200 1 ea PO BID 02/17/13 08/12/21 mg tablet (Osteo Bi-Flex) multivitamin (Daily Vitamin tablet) 1 ea PO DAILY 02/17/13 08/12/21 Custom Accomodative Shoes #1 ea 10/24/19 08/12/21 biotin 10 mg tablet 10 mg PO DAILY 10/24/19 08/12/21 cetirizine 10 mg tablet (Zyrtec) 10 mg PO DAILY PRN 03/21/21 08/12/21 ferrous sulfate 325 mg (65 mg 325 mg PO DAILY 03/21/21 08/12/21 iron) tablet furosemide 20 mg tablet (Lasix) 20 mg PO DAILY #90 tabs 10/14/21 Previous Rx's Medication Instructions Recorded Custom Accomodative Shoes #1 ea 10/24/19 furosemide 20 mg tablet (Lasix) 20 mg PO DAILY #90 tabs 10/14/21 Allergies Allergy/AdvReac Type Severity Reaction Status Date / Time No Known Allergies Allergy Verified 11/10/21 10:02 General MIKEY: 3 Review of Systems Narrative: No report of fall. Patient denies headache. No cough or shortness of breath. No recent fever. 8 systems reviewed and otherwise negative PFSH All Active Problems (Updated 01/22/22 @ 22:37 by Roddy Montoya) Sepsis syndrome (Acute) Acute dehydration (Acute) Multiple fractures of ribs of right side (Acute) Cellulitis of leg, right (Acute) Pneumonia (Acute) Acute kidney injury (Acute) Hyperlipidemia (Acute) ZHANG (dyspnea on exertion) (Acute) Acquired bilateral flat feet (Acute) Left rotator cuff tear arthropathy (Chronic) 80mg Depo-Medrol injection: 08/08/2020, 12/12/2020, 03/27/2021 Left shoulder pain (Acute) Facial basal cell cancer (Acute) Medical History Anemia ASCENDING COLON AVM Basal cell carcinoma of nose BREAST CANCER LEFT Diverticulosis Edema LIMB Foot deformity Hallux valgus Heart murmur SYSTOLIC Heartburn Hip pain, left Macular degeneration Mild memory disturbance Obesity Osteoarthritis of both hands Osteopenia Skin lesion TUBULAR ADENOMAS Uterine prolapse CONGENITAL BODY ASYMMETRY Surgical History Abdominal hysterectomy (~10/2011) PARTIAL Breast, Lumpectomy (12/09/09) LEFT Colonoscopy - IV Sedation (11/19/09) Hx of total knee replacement BILATERAL Recurrent major depression in partial remission (11/19/09) ASCENDING COLON AVM Family History Mother Alzheimer's disease Father Heart disease Lung cancer Sister Cirrhosis of liver Brother Acute myocardial infarction at 58 of [place] Brother Diabetes Heart disease [place] Brother Heart disease Stroke Son Heart disease age 40 [place] with stents Social History Smoking/Tobacco Use Status: Never Smoking risk assessment performed?: Yes Alcohol Intake: current Alcohol Intake frequency: 0-2 drinks per day Drug use: Never Substance use type: does not use Household members: none Current gender identity: female What type of physical activity do you participate in: none Do you feel safe at home: Yes Exam Narrative Exam Narrative: GEN: awake, alert. Pleasant, well groomed, interactive. HEAD: Normocephalic, atraumatic ENT: Mucous membranes dry, oropharynx unremarkable, External ear exam unremarkable EYES: PERRL, EOMI NECK: Full ROM, no SERGO, no menigismus CHEST/RESP: Nontender, clear to auscultation bilateral, no wheeze/rhonchi/rales CARDIOVASCULAR: Tachycardic, question faint systolic ejection murmur,, no rub hong. 2+ Rad pulse bilateral ABDOMEN: Soft, nontender, no mass. +Bowel sounds EXT: Full ROM, the right leg is edematous with erythema below the knee that is warm to the touch and blanches. Neuro: Grossly normal neurologic exam, conversant, interactive. Psych: Speech fluent, thoughts congruent, affect flat
[2022-01-22 21:42] LABS: Lactate 2.5 mmol/L (0.6-1.4)
[2022-01-22 21:45] LABS: Abs Immature Grans 0.14 10^3/uL (0.0-0.06); Basophils % 0.7; HCT 42.8 % (36.0-46.0); HGB 13.8 g/dL (11.2-15.7); Immature Grans % 0.9; Lymphocytes % 3.9; MCH 29.2 pg (27.0-33.0); MCHC 32.2 % (32.0-36.0); MCV 91 fL (80-95); Neutrophils % 92.5; Platelet Count 262 10^3/uL (130-400); RBC 4.73 10^6/uL (3.93-5.22); RDW 17.2 % (11.7-14.6); RDW-SD 57.5 fL; WBC 14.74 10^3/uL (4.4-10.8)
[2022-01-22 21:48] LABS: Absolute Lymphocyte Count 0.57 10^3/uL (1.2-3.4); Absolute Monocyte Count 0.29 10^3/uL (0.1-0.8); Absolute Neutrophil Count 13.63 10^3/uL (1.2-6.7)
[2022-01-22 22:01] LABS: ALT 49 U/L (14-59); AST 158 U/L (15-37); Albumin 3.1 g/dL (3.4-5.0); Alkaline Phosphatase 72 U/L (46-116); Anion Gap 11.5 mmol/L (3-11); BUN 44 mg/dL (7-18); Bilirubin, Total 1.3 mg/dL (0.2-1.0); CO2 24.5 mmol/L (21.0-32.0); Calcium 8.5 mg/dL (8.5-10.1); Chloride 101 mmol/L (98-107); Estimated GFR 24.33 (mL/min/1.73m2); Glucose 115 mg/dL (74-106); Magnesium 1.7 mg/dL (1.8-2.4); Potassium 3.8 mmol/L (3.5-5.1); Sodium 137 mmol/L (136-145); Total Protein 7.2 g/dL (6.4-8.2); Troponin I < 50 ng/L (<or=60)
--- NOTE | 2022-01-22 22:03 | DI.VRAD_ITS ---
PROCEDURE INFORMATION: Exam: CT Head Without Contrast Exam date and time: 01/22/2022 21:48 Age: 81 years old Clinical indication: Altered mental status/memory loss; Patient HX: Confusion TECHNIQUE: Imaging protocol: Computed tomography of the head without contrast. COMPARISON: No relevant prior studies available. FINDINGS: Brain: Atrophy and chronic appearing white matter changes. Chronic appearing left parietal white matter predominant infarct versus asymmetric chronic white matter disease.. No edema or hemorrhage. Cerebral ventricles: No ventriculomegaly. Paranasal sinuses: Benign-appearing right maxillary retention cyst. No significant appearing sinusitis. Mastoid air cells: No mastoid effusion. Bones/joints: No acute fracture. Soft tissues: No suspicious lesions. IMPRESSION: No acute intracranial findings. Incidental findings as above. Dictated and Authenticated by: Lili Basurto MD. Ordering:BURAK Larsen MD
--- NOTE | 2022-01-22 22:06 | DI.VRAD_ITS ---
PROCEDURE INFORMATION: Exam: XR Chest Exam date and time: 01/22/2022 21:59 Age: 81 years old Clinical indication: Other: Confusion, mental status change TECHNIQUE: Imaging protocol: Radiologic exam of the chest. Views: 2 views. COMPARISON: CR XR RIBS RT W PA LAT CHEST 11/10/2021 10:49 FINDINGS: Lungs: Emphysema again seen. There is a new patchy infiltrate in the right mid lung zone. Pleural spaces: No pleural effusion. No pneumothorax. Heart/Mediastinum: Mild cardiomegaly with mild central vascular congestion both more pronounced. Vasculature: Very tortuous aorta is similar to prior. Bones/joints: Chronic bony changes with no acute fracture. IMPRESSION: 1. Mild cardiomegaly with mild central vascular congestion both more pronounced. 2. Emphysema again seen. New right mid lung zone patchy infiltrate, suspicious for developing pneumonia. Dictated and Authenticated by: Lili Basurto MD. Ordering:BURAK Larsen MD
--- NOTE | 2022-01-22 22:32 | W.PM.HP.N ---
Date of service: 01/22/22 Time of Service: 22:33 Assessment and Plan Assessment and plan (1) Sepsis syndrome: Start date: 01/22/22 Start time: 18:00 Status: Acute Assessment and plan: This is an 81-year-old lady who lives alone but has been failing. She was found with altered mental status and eventually diagnosed with sepsis syndrome with hypotension requiring norepinephrine for pressure control. She is on low-dose. She will be admitted to ICU with treatment of her probable infectious process which includes right lower extremity and right middle lung zone infiltrates. She is not hypoxic or having respiratory distress. She is not able to express discomfort or pain over her right lower extremity. She is a DNR/DNI. (2) Cellulitis of leg, right: Start date: 01/22/22 Status: Acute Assessment and plan: Cellulitic process of the right lower extremity with chronic swelling after right TKA. Patient is not ambulatory according to son with very deformed feet. Patient was placed on vancomycin and Zosyn which will be continued. Monitor clinically. Follow-up blood cultures. (3) Pneumonia: Start date: 01/22/22 Status: Acute Assessment and plan: Early right middle lobe infiltrate by chest x-ray interpretation. Patient will be on vancomycin and Zosyn for aggressive treatment of her cellulitis and sepsis syndrome which should cover probable right middle lobe pneumonia. Follow-up clinically with oxygen supplementation as needed. Patient is a DNR/DNI. (4) Acute dehydration: Start date: 01/22/22 Status: Acute Assessment and plan: Patient has not been eating or drinking well at home and may have continue to take her Lasix. IV hydration and resuscitation for hypotension. Watch for fluid overload. There is no history of CHF. Consider updated echocardiogram if needed. Trend labs with creatinine elevated from baseline. History of Present Illness History of Present Illness Chief Complaint: Altered no status with confusion Narrative: This is an 81-year-old female patient who lives alone locally but has been failing at home requiring increased supervision by outside forces for her meals. She has trouble walking with very deformed feet and has not been supervised with her medical therapy. She takes a diuretic for lower extremity swelling and recently has not been eating or drinking as well and had an altered mental status when found by her neighbors who called her son. Her son drove up from [place] to be with her and before he came to the house EMS brought the patient to the ED for evaluation. She was found to have swelling over her right lower extremity where she had previous TKA with slight skin breakdown and probable cellulitis. She does take Lasix daily as mentioned. She may not have been compliant with medical therapy. She had no fever but had an elevated WBC and was tachycardic and confused. With hydration she became less confused but then began to have problems with hypotension requiring central IV placement and IV J with norepinephrine started for blood pressure management. She was transferred to ICU for continued care. She was more alert and felt more baseline with her blood pressure maintained. She was not able to be weaned off Levophed requiring ICU care as mentioned. She is a DNR/DNI with previous advance wishes found in her chart. Review of Systems Narrative: 13 point review of systems otherwise unrevealing or unobtainable with patient mildly confused. PFSH All Active Problems Septic shock (Acute) Sepsis syndrome (Acute) Acute dehydration (Acute) Multiple fractures of ribs of right side (Acute) Cellulitis of leg, right (Acute) Pneumonia (Acute) Acute kidney injury (Acute) Hyperlipidemia (Acute) ZHANG (dyspnea on exertion) (Acute) Acquired bilateral flat feet (Acute) Left rotator cuff tear arthropathy (Chronic) 80mg Depo-Medrol injection: 08/08/2020, 12/12/2020, 03/27/2021 Left shoulder pain (Acute) Facial basal cell cancer (Acute) Medical History Anemia ASCENDING COLON AVM Basal cell carcinoma of nose BREAST CANCER LEFT Diverticulosis Edema LIMB Foot deformity Hallux valgus Heart murmur SYSTOLIC Heartburn Hip pain, left Macular degeneration Mild memory disturbance Obesity Osteoarthritis of both hands Osteopenia Skin lesion TUBULAR ADENOMAS Uterine prolapse CONGENITAL BODY ASYMMETRY Surgical History Abdominal hysterectomy (~10/2011) PARTIAL Breast, Lumpectomy (12/09/09) LEFT Colonoscopy - IV Sedation (11/19/09) Hx of total knee replacement BILATERAL Recurrent major depression in partial remission (11/19/09) ASCENDING COLON AVM Family History Mother Alzheimer's disease Father Heart disease Lung cancer Sister Cirrhosis of liver Brother Acute myocardial infarction at 58 of [place] Brother Diabetes Heart disease [place] Brother Heart disease Stroke Son Heart disease age 40 [place] with stents Social History Smoking/Tobacco Use Status: Never Smoking risk assessment performed?: Yes Alcohol Intake: current Alcohol Intake frequency: 0-2 drinks per day Drug use: Never Substance use type: does not use Household members: none Current gender identity: female What type of physical activity do you participate in: none Do you feel safe at home: Yes Meds Allergies and Home Medications Allergies Allergy/AdvReac Type Severity Reaction Status Date / Time No Known Allergies Allergy Verified 11/10/21 10:02 Home Medications Medication Instructions Recorded Confirmed Type aspirin 81 mg chewable tablet 81 mg PO DAILY 02/17/13 01/23/22 History (Aspirin Low-Strength) calcium carbonate 600 mg-vitamin 1 ea PO BID 02/17/13 01/23/22 History D3 5 mcg (200 unit) tablet (Calcium 600 with Vitamin D3) glucosamine-chondroitin 250 mg-200 1 ea PO BID 02/17/13 01/23/22 History mg tablet (Osteo Bi-Flex) multivitamin (Daily Vitamin tablet) 1 ea PO DAILY 02/17/13 01/23/22 History Custom Accomodative Shoes #1 ea 10/24/19 08/12/21 Rx biotin 10 mg tablet 10 mg PO DAILY 10/24/19 01/23/22 History ferrous sulfate 325 mg (65 mg 325 mg PO DAILY 03/21/21 01/23/22 History iron) tablet furosemide 20 mg tablet (Lasix) 20 mg PO DAILY #90 tabs 10/14/21 01/23/22 Rx memantine 5 mg tablet 5 mg 01/23/22 History Exam Narrative Exam Narrative: General: Patient is moderately obese, lying in bed with the head slightly elevated and eyes open but mostly not speaking unless blood pressure is more elevated. She does know that she is in the hospital and is oriented at least to person but not time. She is in no acute distress. HEENT: Normocephalic, coarsened facial features. Eyes with pupils equal and react to light symmetrically, extraocular movement intact and sclera anicteric. Oropharynx with dry mucosa and apparent dentures. Neck: Supple without JVD. Back: Stooped posture without CVA tenderness. Lungs: Occasional coarse crackle with inspiration of the right lung reynolds otherwise bronchovesicular breath sounds diffusely and no focalizing rales or rhonchi. No expiratory wheeze. Heart: Regular rhythm borderline tachycardic with occasional extrasystole. No appreciable murmur or gallop. Breast: Exam deferred. Abdomen: Obese contour, soft nontender to palpation with no palpable hepatosplenomegaly. Genitalia/rectal: Exam deferred. Extremities: Right lower extremity with moderate nonpitting edema and erythema with slight skin breakdown and atrophic skin over the ankle. This is warm to touch. Well-healed right TKA scar. Feet both are deformed with severe pes planus and all toes appear to be flexed and contracture with callus formation and slight skin breakdown. (Patient states that she was not born with clubfeet). Nails are all thickened and opaque. Fair capillary refill. Upper extremities normal with mild arthritic changes but good pulses. No clubbing or cyanosis. Skin: Pale, warm and dry. Neuro: Cranial nerves II through XII gross intact, no focal motor deficits. No tremor. Psych: Flattened affect with patient slightly obtunded but no abnormal thought processes. Mood appears normal when she is awake. Remote memory grossly intact and recent memory appears to be intact with patient knowing she is in the hospital at this time but not able to talk about recent events. Results Imaging Imaging Studies: Exam: XR Chest Exam date and time: 01/22/2022 21:59 Age: 81 years old Clinical indication: Other: Confusion, mental status change TECHNIQUE: Imaging protocol: Radiologic exam of the chest. Views: 2 views. COMPARISON: CR XR RIBS RT W PA LAT CHEST 11/10/2021 10:49 FINDINGS: Lungs: Emphysema again seen. There is a new patchy infiltrate in the right mid lung zone. Pleural spaces: No pleural effusion. No pneumothorax. Heart/Mediastinum: Mild cardiomegaly with mild central vascular congestion both more pronounced. Vasculature: Very tortuous aorta is similar to prior. Bones/joints: Chronic bony changes with no acute fracture. IMPRESSION: 1. Mild cardiomegaly with mild central vascular congestion both more pronounced. 2. Emphysema again seen.? New right mid lung zone patchy infiltrate, suspicious for developing pneumonia. Exam: CT Head Without Contrast Exam date and time: 01/22/2022 21:48 Age: 81 years old Clinical indication: Altered mental status/memory loss; Patient HX: Confusion TECHNIQUE: Imaging protocol: Computed tomography of the head without contrast. COMPARISON: No relevant prior studies available. FINDINGS: Brain: Atrophy and chronic appearing white matter changes. Chronic appearing left parietal white matter predominant infarct versus asymmetric chronic white matter disease.. No edema or hemorrhage. Cerebral ventricles: No ventriculomegaly. Paranasal sinuses: Benign-appearing right maxillary retention cyst. No significant appearing sinusitis. Mastoid air cells: No mastoid effusion. Bones/joints: No acute fracture. Soft tissues: No suspicious lesions.? IMPRESSION: No acute intracranial findings. Incidental findings as above. Labs Result diagrams: 01/23/22 05:15 01/23/22 05:15 Labs: Laboratory Results - last 24 hr 01/22/22 01/22/22 01/22/22 21:30 21:30 21:30 WBC 14.74 H RBC 4.73 Hgb 13.8 Hct 42.8 MCV 91 MCH 29.2 MCHC 32.2 RDW 17.2 H Plt Count 262 MPV 10.0 Immature Gran % 0.9 Neutrophils % 92.5 Lymphocytes % 3.9 Monocytes % 2.0 Eosinophils % 0.0 Basophils % 0.7 Nucleated RBC % 0.0 Absolute Neutrophils 13.63 H Absolute Lymphocytes 0.57 L Absolute Monocytes 0.29 Absolute Eosinophils 0.00 Absolute Basophils 0.10 VBG Lactate 2.5 H* Sodium 137 Potassium 3.8 Chloride 101 Carbon Dioxide 24.5 Anion Gap 11.5 H BUN 44 H Creatinine 2.0 H Est GFR (CKD-EPI 2020) 24.33 Glucose 115 H Calcium 8.5 Magnesium 1.7 L Total Bilirubin 1.3 H AST 158 H ALT 49 Alkaline Phosphatase 72 Troponin I < 50 Total Protein 7.2 Albumin 3.1 L Last Vital Signs Pulse 111 H 01/22/22 20:58 Resp 26 H 01/22/22 21:11 BP 104/65 01/22/22 20:58 Pulse Ox 94 01/22/22 20:58
[2022-01-22] MEDS: PIPERACILLIN/TAZO 3.375 GM in Normal Saline 50 ML IVPB (22:43)
[2022-01-22] MEDS: Acetaminophen 500 MG TAB 1000 MG PO ×2 (22:46→22:47)
[2022-01-22] MEDS: Normal Saline 1,000 ML 1000 ML IV (22:51)
[2022-01-22 22:56] LABS: Source Nasal/Nares
[2022-01-22] MEDS: MAGNESIUM SULFATE 1 GM/100 ML BAG IVPB (23:04)
[2022-01-22] MEDS: VANCOMYCIN 1,500 MG in Normal Saline 250 ML 166.6666 MG IVPB (23:21)
[2022-01-22 23:26] LABS: COVID-19 PCR Negative (Negative)
[2022-01-22 23:44] LABS: INR 1.2 (0.9-1.1); Prothrombin Time 12.1 sec (9.3-11.0)
[2022-01-22 23:53] LABS: TSH (W/Ref FT4) 3.09 uIU/mL (0.36-3.74)
[2022-01-23] VITALS (180 sets, daily range): BP systolic 64–123; BP diastolic 35–108; PULSE 49–148; RESP 14–42; TEMP 36.8–39.3; O2SAT 89–100
--- NOTE | 2022-01-23 | DI.RAD_ITS ---
Exam(s) XR CHEST 2V PA LATERAL EXAM: XR CHEST 2V PA LATERAL CLINICAL HISTORY: assess position of CVL TECHNIQUE: COMPARISON: CR,XR XR PORTABLE CHEST AP from 01/23/2022 FINDINGS: AP and lateral views were obtained. A previously described IJ catheter again lies with its tip overl makeda the right atrium. Lungs appear grossly clear. Bilateral small pleural effusions noted, cardiac size within normal limits. IMPRESSION: RADIATION DOSE DELIVERED: Total DLP
--- NOTE | 2022-01-23 | DI.RAD_ITS ---
Exam(s) XR PORTABLE CHEST AP EXAM: XR PORTABLE CHEST AP CLINICAL HISTORY: VERIFY CENTRAL LINE PLACEMENT TECHNIQUE: COMPARISON: CR,XR XR CHEST 2V PA LATERAL from 01/22/2022 FINDINGS: Portable AP chest at 0015 hours, an apparent right IJ catheter has been placed, the tip overlies the right atrium. Streaky bilateral intrapulmonary radiodensities are noted. IMPRESSION: RADIATION DOSE DELIVERED: Total DLP
--- NOTE | 2022-01-23 | DI.US_ITS ---
APPROVED REPORT EXAM: Comprehensive 2D, Doppler, and color-flow Echocardiogram Patient [facility]: [facility] [employer] Cementer: Joy Dawson RDCS (AE) Indications: Pulmonary edema, Concern for CHF Other Information Study Quality: Fair. Technically limited study due to body habitus, inability to position patient exa m done supine bedside. Conclusion Technically difficult and suboptimal study Normal left ventricular wall thickness and chamber size. Estimated ejection fraction is 55%. Cannot exclude segmental wall motion abnormalities Right ventricle appears mildly dilated. Right ventricular systolic function could not be assessed Both atria are grossly normal in size The aortic valve is sclerotic with mild aortic stenosis. Peak gradient is 32 mmHg Trivial pericardial effusion Wall motion Left Ventricle The left ventricle is normal size. The left ventricular systolic function is normal. The left ventric ular ejection fraction is within the normal range. There is normal left ventricular wall thickness. T here is no ventricular septal defect visualized. LVEF is 55%. Right Ventricle Right ventricle is dilated. Right ventricular systolic function could not be assessed. The RVSP is 31 .0 mmHg. Atria The left atrium size is normal. The right atrium size is normal. The interatrial septum is intact wit h no evidence for an atrial septal defect. Aortic Valve Aortic valve is calcified. Number of aortic valve leaflets could not be assessed. Mild aortic stenosi s. Peak aortic valve gradient is 32.0mmHg. Highest mean aortic valve gradient is 20.8mmHg. Calculated GIANNA by the continuity equation is 1.25cm2. No aortic regurgitation is present. Mitral Valve There is mitral annular calcification. No evidence of mitral valve stenosis. Trace to mild mitral reg urgitation. Tricuspid Valve The tricuspid valve is normal in structure. There is no tricuspid valve stenosis. Trace to mild tricu spid regurgitation. Pulmonic Valve Pulmonic valve is not well visualized. There is no pulmonic valvular stenosis. There is no pulmonic v alvular regurgitation. Great Vessels The aortic root is normal in size. Ascending aorta is not well visualized. Aortic arch is not well vi sualized. The IVC collapses <50% with inspiration. Pericardium Trace pericardial effusion. 2D Dimensions IVSD d PLAX 1.00 cm F: 0.6-1.0 LV Vol A2C d MOD 106.4 mL LVPW d PLAX 1.02 cm F: 0.6 - 1.0 LV Vol A4C d MOD 74.3 mL LVID d PLAX 4.56 cm F: 3.8 - 5.2 LA vol/ BSA A2C s A-L 24.7 mL/m2 LVDs 3.35 cm F: 2.2 - 3.5 LA vol/ BSA A4C s A-L 30.9 mL/m2 Ao Root d 2.66 cm F: 2.7 - 3.3 LA Vol/ BSA Biplane s A-L 29.0 mL/m2 LV EF Teichholz 51.1 % LA Area A4C s MOD 20.14 cm2 LVEF (Huddleston's) 48.59 % F: 54 - 74 LA Area A2C s MOD 17.17 cm2 LV Volume 70.21 mL F: 46 - 106 LV EF A4C MOD 50.5 % LV Volume Index 37.14 mL/m2 F: 29 - 61 LV EF A2C MOD 50.1 % LV Vol Biplane MOD 91.8 mL LV EF Biplane MOD 48.6 % FS 25.95 % SV 44.62 mL SV Index 23.60 mL/m2 M-Mode TAPSE 2.34 cm (M/F) >1.7 LV Diastology MV E' medial 0.124 (>0.07 m/s) E/A Ratio 0.8 LV E/e MED 8.70 (<14) MV E Vmax 1.08 (0.4-1.3 m/s) MV E' lateral 0.090 (>0.1 m/s) MV A Vmax 1.35 (0.4-1.3 m/s) LV E/e LAT 12.00 (<14) MV E/A Ratio 0.78 MV E/E' medial 8.71 MV E/E' lateral 12.04 Aortic Valve LVOT Area 2.94 cm2 AoV Area Vmax 1.35 cm2 LVOT Vmax 1.30 m/s AoV Area/ BSA (Vmax) 0.71 cm2/m2 LVOT Mean Ed. 0.81 m/s GIANNA Mean Ed. 1.07 cm2 LVOT Peak Grad 6.7 mmHg GIANNA Mean Ed. Index 0.56 cm2/m2 LVOT Mean Grad 3.2 mmHg LVOT VTI 0.185 m LVOT Diam s 1.90 cm AoV Vmax 2.83 m/s Velocity Ratio 0.45 AoV Mean Ed. 2.22 m/s AoV Peak Grad 32.0 mmHg LVOT SV 54.33 mL AoV Mean Grad 20.8 mmHg AoV VTI 0.434 m AoV Area VTI 1.25 cm2 AoV Area/ BSA (VTI) 0.66 cm/m2 Mitral Valve MV DT 329 (160-240 msec) MV PHT 96 msec MV Area PHT 2.30 cm2 MV VTI 0.425 m MV Area VTI 1.28 (4.0-6.0 cm2) Pulmonary Valve PV Vmax 1.11 (0.5-1.5 m/s) RVOT Peak Gr. 4.53 mmHg PV Peak Grad 4.9 mmHg RVOT Mean Gr. 2.20 mmHg PV Mean Grad 2.5 mmHg RVOT VTI 0.136 m PV VTI 0.152 m RVOT Vmax 1.06 m/s Tricuspid Valve TR Peak Grad 22.9 mmHg TR Vmax 2.40 m/s RA Pressure 3.00 mmHg RVSP (TR) 31.0 mmHg
--- NOTE | 2022-01-23 00:27 | DI.VRAD_ITS ---
PROCEDURE INFORMATION: Exam: XR Chest Exam date and time: 01/23/2022 00:00 Age: 81 years old Clinical indication: Other vascular access device placement or adjustment; Other: Central line, unspecified type; Patient HX: Verify central line placement TECHNIQUE: Imaging protocol: Radiologic exam of the chest. Views: 1 view. COMPARISON: CR XR CHEST 2V PA LATERAL 01/22/2022 21:59 FINDINGS: Tubes, catheters and devices: Right jugular catheter, tip projects over the upper right atrium. Retraction by 2 cm would reach the upper cavoatrial junction. Lungs: No new significant airspace disease. Lungs are hyperinflated. Pleural spaces: No pleural effusion. No pneumothorax. Heart/Mediastinum: Mild cardiomegaly with mild central vascular congestion, similar. Bones/joints: Chronic bony pathology in the shoulders and right ribs, similar. IMPRESSION: Right jugular catheter, tip projects over the upper right atrium. Retraction by 2 cm would reach the upper cavoatrial junction. Dictated and Authenticated by: Lili Basurto MD. Ordering:CIERRA Kingston MD
[2022-01-23] MEDS: Lidocaine 1% Multi-Dose 20 ML VIAL (01:00)
[2022-01-23 01:57] LABS: Bilirubin Negative (Negative); Blood Large (Negative); Clarity Cloudy (Clear); Glucose Negative (Negative); Ketones Negative (Negative); Leukocyte Esterase Negative (Negative); Nitrite Negative (Negative); Urobilinogen 0.2 EU/dL (Up TO 0.2); pH 5.5 (5-8)
[2022-01-23 02:04] LABS: Bacteria Rare HPF (Negative); Casts 3-5 Hyaline LPF (Negative); Crystals Moderate Amorphous HPF (Negative); Epithelial Cells Rare HPF (Negative); Mucus Negative (Negative); WBC 0-2 HPF (0-5)
[2022-01-23 02:05] LABS: C & S Indicated? No
--- NOTE | 2022-01-23 02:10 | ED.PROG_ITS ---
Date of service: 01/23/22 Time of Service: 02:10 Medical Decision Making Patient was not signed out to me, the patient was admitted to the medicine service, but while down in the emergency department prior to transitioning to the [facility]/ICU floor patient had a notable decline in blood pressure and slight mental status change. The decision was made to place a central line in the right IJ, and start pressors. This was discussed for the risks and benefits with the son who is at bedside and he agreed. Right IJ was placed without complication, Levophed was started. A single left-sided art line attempt was made, however the vessel was notably sclerotic. No challenge getting the guidewire through, however there was significant resistance with passing of the catheter itself. Not wanting to cause undue damage the decision was made to halt the procedure. The patient otherwise tolerated the procedure very well. All this was discussed with the hospitalist Dr. Montoya. Upon my evaluation, this patient had a high probability of imminent or life- threatening deterioration, which required my direct attention, intervention, and personal management. I have personally provided 35 minutes of critical care time exclusive of time spent on separately billable procedures. Time includes review of laboratory data, radiology results, discussion with consultants, and monitoring for potential decompensation. Interventions were performed as documented. Procedure: Internal Jugular Central Venous Catheter Indication: Hemodynamic monitoring/Intravenous access PROCEDURE SUMMARY: A time-out was performed. The patient?s neck region was prepped and draped in sterile fashion using chlorhexidine scrub. Anesthesia was achieved with 1% lidocaine. The internal jugular vein was accessed under ultrasound guidance using a finder needle.Venous blood was withdrawn. A guidewire was advanced through the needle. A small incision was made with a 10 blade scalpel and the dilator was advanced over the guidewire until appropriate dilation was obtained. The dilator was removed and a triple lumen catheter was advanced over the guidewire and secured into place with 2 simple interrupted sutures. At time of procedure completion, all ports aspirated and flushed properly. Post-procedure x-ray shows the tip of the catheter within the superior vena cava. ESTIMATED BLOOD LOSS: 5ml?s The patient tolerated the procedure well there were no complications. Procedure: Arterial Line Indication: Hemodynamic monitoring ?A time-out was completed verifying correct patient, procedure, site, positioning, and special equipment if applicable. Kj?s test was performed to ensure adequate perfusion. The patient?s left wrist was prepped and draped in sterile fashion. 1% Lidocaine was used to anesthetize the area. The arterial line was introduced into the radial artery. The catheter was threaded over the guide wire however there was notable resistance. Ultrasound verification showed evidence of an appropriately placed guidewire however the catheter itself would not easily traversed through the sclerotic arterial wall. The decision was made to hold procedure. Estimated Blood Loss: 3ml?s Sign Out No Discharge Plan Disposition Patient Disposition: Admit to [facility] Condition: Serious Discharge Details Clinical Impression: Cellulitis of leg, right, Pneumonia, Acute kidney injury, Septic shock Primary Care Provider: Jeanne Mosqueda V ED Provider: Chava Can Home Meds and New Rx's Prescriptions: No Action biotin 10 mg tablet 10 mg PO DAILY (DME) Custom Accomodative Shoes Qty: 1 0RF Rx Instructions: Please fit and make bilateral accomodative shoes for extreme width of feet with collapse and medial prominence. multivitamin [Daily Vitamin] 1 EACH tablet 1 ea PO DAILY calcium carbonate-vitamin D3 [Calcium 600 with Vitamin D3] 1 EACH tablet 1 ea PO BID aspirin [Aspirin Low-Strength] 81 MG tablet,chewable 81 mg PO DAILY glucosamine-chondroitin [Osteo Bi-Flex] 1 EACH tablet 1 ea PO BID ferrous sulfate 325 mg (65 mg iron) tablet 325 mg PO DAILY furosemide [Lasix] 20 mg tablet 20 mg PO DAILY Qty: 90 3RF Rx Instructions: 1 daily as needed memantine 5 mg Tablet 5 mg
[2022-01-23] MEDS: MAGNESIUM SULFATE 2 GM/50 ML BAG IVPB (03:47)
[2022-01-23] MEDS: Normal Saline Flush 10 ML SYR IVP ×4 (05:15→20:49)
[2022-01-23 05:32] LABS: Lactate 1.2 mmol/L (0.6-1.4)
[2022-01-23 05:40] LABS: Absolute Basophil Count 0.08 10^3/uL (0.0-0.2); Basophils % 0.5; HCT 41.7 % (36.0-46.0); HGB 13.6 g/dL (11.2-15.7); MCH 29.5 pg (27.0-33.0); MCHC 32.6 % (32.0-36.0); MCV 91 fL (80-95); Platelet Count 239 10^3/uL (130-400); RBC 4.61 10^6/uL (3.93-5.22); RDW 17.4 % (11.7-14.6); RDW-SD 57.4 fL; WBC 15.89 10^3/uL (4.4-10.8)
[2022-01-23 06:00] LABS: ALT 83 U/L (14-59); AST 282 U/L (15-37); Albumin 2.7 g/dL (3.4-5.0); Alkaline Phosphatase 66 U/L (46-116); Anion Gap 12.3 mmol/L (3-11); BUN 41 mg/dL (7-18); Bilirubin, Total 1.5 mg/dL (0.2-1.0); CO2 21.7 mmol/L (21.0-32.0); CREATININE 1.5 mg/dL (0.55-1.02); Calcium 7.8 mg/dL (8.5-10.1); Chloride 105 mmol/L (98-107); Estimated GFR 34.36 (mL/min/1.73m2); Glucose 128 mg/dL (74-106); Magnesium 2.3 mg/dL (1.8-2.4); Potassium 3.4 mmol/L (3.5-5.1); Sodium 139 mmol/L (136-145); Total Protein 6.3 g/dL (6.4-8.2)
[2022-01-23 06:10] LABS: Bands % 8
[2022-01-23 06:11] LABS: Absolute Lymphocyte Count 0.95 10^3/uL (1.2-3.4); Absolute Monocyte Count 0.32 10^3/uL (0.1-0.8); Absolute Neutrophil Count 14.46 10^3/uL (1.2-6.7); Diff Comment Manual Differential; Metamyelocytes % 1; RBC Morphology Normal
[2022-01-23 07:55] LABS: Lab Add On Test DONE
[2022-01-23 08:30] LABS: C-Reactive Protein 19.24 mg/dL (0.0-0.3); Lipase 29 U/L (73-393)
[2022-01-23 08:38] LABS: Procalcitonin 16.5 ng/mL
[2022-01-23 08:45] LABS: Creatine Kinase 9949 U/L (26-192)
--- NOTE | 2022-01-23 08:56 | W.PM.PROGNOT ---
Date of Service Date of service: 01/23/22 Time of Service: 08:59 Assessment and Plan Assessment and plan (1) Septic shock: Status: Acute Assessment and plan: Due to cellulitis RLE in addition to a possible R TKR prosthesis infection +/- intraabdominal process. Continue empiric vancomycin/zosyn. Wean pressors as tolerated. It appears that the patient has pulmonary edema on CXR, but requires IVF due to rhabdomyolysis (we will have to do forced diuresis). Await blood cx. Trend ESR/CRP. Obtain echo (has a murmur). Obtain ortho consult. Obtain imaging of RLE, abdomen, and repeat CXR to ensure positioning of the R IJ CVL. (2) Cellulitis of leg, right: Status: Acute Assessment and plan: As above (3) Pneumonia: Status: Acute Assessment and plan: As above (4) Acute kidney injury: Status: Acute Assessment and plan: In setting of septic shock but also rhabdomyolysis. With hypokalemia. Replete potassium. IVF + diuretics. Trend CPK. Obtain imaging. (5) Rhabdomyolysis: Status: Acute Assessment and plan: Possibly due to immobility at home, but given RLE infection, this could also be contributing. Obtain CT RLE. 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 Consult ortho. Obtain CT. (7) Toxic metabolic encephalopathy: Status: Acute Assessment and plan: Improving. The patient does have a h/o Alzheimers. Continue treatment of infection. She is A&Ox3 this morning and answers all questions appropriately. (8) Pulmonary edema: Status: Acute Assessment and plan: As requiring IVF for rhabdo management, will karen it with furosemide. Obtain echo. Carefully monitor respiratory status. (9) Hypokalemia: Status: Acute Assessment and plan: Replete (10) Transaminitis: Status: Acute Assessment and plan: In setting of rhabdomyolysis, septic shock (shock liver?), diarrhea. Monitor LFTs. Obtain abdominal imaging. (11) Diarrhea: Status: Acute Assessment and plan: Check stool studies. Obtain abdominal imaging. (12) DVT prophylaxis: Status: Acute Assessment and plan: SC heparin to start tonight (possible need for arthrocenthesis) (13) Discharge planning issues: Status: Acute Assessment and plan: DNR/DNI Keep in ICU. C/s palliative care. Total Critical Care Time 60 minutes. Subjective Subjective Interval history since last seen: Ms Zamora states that she is not in pain. This included her R knee. She denies dizziness, shortness of breath, nausea, abdominal pain. She states that her diarrhea has been going on for a couple of months. On RA. Remains on norepinephrine. IVF stopped this morning due to evidence of CHF on CXR. On the monitor goes into rapid rates up to 130 on occasion. Exam Narrative Exam Narrative: General: Pleasant elderly female who is A&Ox3, but does not know a year, mildly tachypneic on my exam HEENT: EOMI, MMM Heart: seemingly irregularly irregular rhythm, +NEELAM Lungs: faint crackles at B bases Abdomen: soft, nontender, nondistended Extremities: B extremities warm with Charcot feet; RLE with erythema over tibial surface spreading over the R knee which is hot and swollen but not tender Objective Last Vital Signs Temp 37.3 C 01/23/22 06:00 Pulse 61 01/23/22 07:15 Resp 25 H 01/23/22 07:31 BP 92/73 L 01/23/22 07:15 Pulse Ox 97 01/23/22 07:31 Laboratory Results - last 24 hr 01/22/22 01/22/22 01/22/22 21:30 21:30 21:30 WBC 14.74 H RBC 4.73 Hgb 13.8 Hct 42.8 MCV 91 MCH 29.2 MCHC 32.2 RDW 17.2 H Plt Count 262 MPV 10.0 Immature Gran % 0.9 Neutrophils % 92.5 Band Neutrophils % Lymphocytes % 3.9 Monocytes % 2.0 Eosinophils % 0.0 Basophils % 0.7 Metamyelocytes % Nucleated RBC % 0.0 Absolute Neutrophils 13.63 H Absolute Lymphocytes 0.57 L Absolute Monocytes 0.29 Absolute Eosinophils 0.00 Absolute Basophils 0.10 RBC Morphology PT INR VBG Lactate 2.5 H* Sodium 137 Potassium 3.8 Chloride 101 Carbon Dioxide 24.5 Anion Gap 11.5 H BUN 44 H Creatinine 2.0 H Est GFR (CKD-EPI 2020) 24.33 Glucose 115 H Calcium 8.5 Magnesium 1.7 L Total Bilirubin 1.3 H AST 158 H ALT 49 Alkaline Phosphatase 72 Creatine Kinase Troponin I < 50 C-Reactive Protein Total Protein 7.2 Albumin 3.1 L Lipase Procalcitonin TSH Urine Color Urine Clarity Urine pH Ur Specific [place] Urine Protein Urine Ketones Urine Blood Urine Nitrite Urine Bilirubin Urine Urobilinogen Ur Leukocyte Esterase Urine RBC Urine WBC Ur Epithelial Cells Urine Crystals Urine Bacteria Urine Casts Urine Mucus Ur Culture Indicated? Urine Glucose COVID-19 Source SARS-CoV-2 (PCR) Influenza Type A (PCR) Influenza Type B (PCR) RSV (PCR) Add-On Test Request 01/22/22 01/22/22 01/22/22 21:30 22:30 22:40 WBC RBC Hgb Hct MCV MCH MCHC RDW Plt Count MPV Immature Gran % Neutrophils % Band Neutrophils % Lymphocytes % Monocytes % Eosinophils % Basophils % Metamyelocytes % Nucleated RBC % Absolute Neutrophils Absolute Lymphocytes Absolute Monocytes Absolute Eosinophils Absolute Basophils RBC Morphology PT INR VBG Lactate Sodium Potassium Chloride Carbon Dioxide Anion Gap BUN Creatinine Est GFR (CKD-EPI 2020) Glucose Calcium Magnesium Total Bilirubin AST ALT Alkaline Phosphatase Creatine Kinase Troponin I C-Reactive Protein Total Protein Albumin Lipase Procalcitonin TSH 3.09 Urine Color Urine Clarity Urine pH Ur Specific [place] Urine Protein Urine Ketones Urine Blood Urine Nitrite Urine Bilirubin Urine Urobilinogen Ur Leukocyte Esterase Urine RBC Urine WBC Ur Epithelial Cells Urine Crystals Urine Bacteria Urine Casts Urine Mucus Ur Culture Indicated? Urine Glucose COVID-19 Source Cancelled Nasal/Nares SARS-CoV-2 (PCR) Cancelled Negative Influenza Type A (PCR) Cancelled Influenza Type B (PCR) Cancelled RSV (PCR) Cancelled Add-On Test Request 01/22/22 01/23/22 01/23/22 23:25 01:30 05:15 WBC RBC Hgb Hct MCV MCH MCHC RDW Plt Count MPV Immature Gran % Neutrophils % Band Neutrophils % Lymphocytes % Monocytes % Eosinophils % Basophils % Metamyelocytes % Nucleated RBC % Absolute Neutrophils Absolute Lymphocytes Absolute Monocytes Absolute Eosinophils Absolute Basophils RBC Morphology PT 12.1 H INR 1.2 H VBG Lactate Sodium 139 Potassium 3.4 L Chloride 105 Carbon Dioxide 21.7 Anion Gap 12.3 H BUN 41 H Creatinine 1.5 H Est GFR (CKD-EPI 2020) 34.36 Glucose 128 H Calcium 7.8 L Magnesium 2.3 Total Bilirubin 1.5 H AST 282 H ALT 83 H Alkaline Phosphatase 66 Creatine Kinase Troponin I C-Reactive Protein Total Protein 6.3 L Albumin 2.7 L Lipase Procalcitonin TSH Urine Color Yellow Urine Clarity Cloudy Urine pH 5.5 Ur Specific [place] 1.020 Urine Protein 30 H Urine Ketones Negative Urine Blood Large H Urine Nitrite Negative Urine Bilirubin Negative Urine Urobilinogen 0.2 Ur Leukocyte Esterase Negative Urine RBC 5-10 H Urine WBC 0-2 Ur Epithelial Cells Rare Urine Crystals Moderate Amorphous Urine Bacteria Rare Urine Casts 3-5 Hyaline Urine Mucus Negative Ur Culture Indicated? No Urine Glucose Negative COVID-19 Source SARS-CoV-2 (PCR) Influenza Type A (PCR) Influenza Type B (PCR) RSV (PCR) Add-On Test Request 01/23/22 01/23/22 01/23/22 05:15 05:15 05:15 WBC 15.89 H RBC 4.61 Hgb 13.6 Hct 41.7 MCV 91 MCH 29.5 MCHC 32.6 RDW 17.4 H Plt Count 239 MPV 10.0 Immature Gran % 0.0 Neutrophils % 83.0 Band Neutrophils % 8 Lymphocytes % 6.0 Monocytes % 2.0 Eosinophils % 0.0 Basophils % 0.5 Metamyelocytes % 1 Nucleated RBC % 0.0 Absolute Neutrophils 14.46 H Absolute Lymphocytes 0.95 L Absolute Monocytes 0.32 Absolute Eosinophils 0.00 Absolute Basophils 0.08 RBC Morphology Normal PT INR VBG Lactate 1.2 Sodium Potassium Chloride Carbon Dioxide Anion Gap BUN Creatinine Est GFR (CKD-EPI 2020) Glucose Calcium Magnesium Total Bilirubin AST ALT Alkaline Phosphatase Creatine Kinase Troponin I C-Reactive Protein Total Protein Albumin Lipase Procalcitonin TSH Urine Color Urine Clarity Urine pH Ur Specific [place] Urine Protein Urine Ketones Urine Blood Urine Nitrite Urine Bilirubin Urine Urobilinogen Ur Leukocyte Esterase Urine RBC Urine WBC Ur Epithelial Cells Urine Crystals Urine Bacteria Urine Casts Urine Mucus Ur Culture Indicated? Urine Glucose COVID-19 Source SARS-CoV-2 (PCR) Influenza Type A (PCR) Influenza Type B (PCR) RSV (PCR) Add-On Test Request DONE 01/23/22 01/23/22 05:15 05:15 WBC RBC Hgb Hct MCV MCH MCHC RDW Plt Count MPV Immature Gran % Neutrophils % Band Neutrophils % Lymphocytes % Monocytes % Eosinophils % Basophils % Metamyelocytes % Nucleated RBC % Absolute Neutrophils Absolute Lymphocytes Absolute Monocytes Absolute Eosinophils Absolute Basophils RBC Morphology PT INR VBG Lactate Sodium Potassium Chloride Carbon Dioxide Anion Gap BUN Creatinine Est GFR (CKD-EPI 2020) Glucose Calcium Magnesium Total Bilirubin AST ALT Alkaline Phosphatase Creatine Kinase 9949 H Troponin I C-Reactive Protein 19.24 H Total Protein Albumin Lipase 29 Procalcitonin 16.5 TSH Urine Color Urine Clarity Urine pH Ur Specific [place] Urine Protein Urine Ketones Urine Blood Urine Nitrite Urine Bilirubin Urine Urobilinogen Ur Leukocyte Esterase Urine RBC Urine WBC Ur Epithelial Cells Urine Crystals Urine Bacteria Urine Casts Urine Mucus Ur Culture Indicated? Urine Glucose COVID-19 Source SARS-CoV-2 (PCR) Influenza Type A (PCR) Influenza Type B (PCR) RSV (PCR) Add-On Test Request Objective Narrative Objective Narrative: CT abdomen/pelvis, CT RLE, CXR, echo pending. Multi-Disciplinary Checklist Lines/Tubes CENTRAL LINE: yes, Central Line Day#: 0 Note: placed this morning ARTERIAL LINE: no [place]: yes, [place] Day#: 0 ENDOTRACHEAL TUBE: no ICU Maintenance GLUCOSE 140-180mg/dL: no, Reason/Intervention: nondiabetic patient NUTRITION AT GOAL: yes PRESSURE ULCER: no RESTRAINTS: no ANTIBIOTICS(if yes, consider Stewardship): Yes Social Issues FAMILY UPDATED: yes PT/OT: no, Reason/Intervention: not clinically appropriate GOALS/DISPOSITION/SENIOR TECHNICAL TRAINER: yes CODE STATUS: DNR/DNI Prophylaxis DVT PROPHYLAXIS: yes GI PROPHYLAXIS: no
--- NOTE | 2022-01-23 09:05 | INITIAL_ITS ---
- If Service Date Differs Date of service: 01/23/22 Time of Service: 09:05 Care Management Initial Assess REASON FOR HOSPITALIZATION:: Sepsis syndrome, dehydration, cellulitis, PNA PAST MEDICAL HISTORY/PAST SURGICAL HISTORY:: Medical History . Anemia. ASCENDING COLON AVM. Basal cell carcinoma of nose. BREAST CANCER. LEFT. Diverticulosis. Edema. LIMB. Foot deformity. Hallux valgus. Heart murmur. SYSTOLIC. Heartburn. Hip pain, left. Macular degeneration. Mild memory disturbance. Obesity. Osteoarthritis of both hands. Osteopenia. Skin lesion. TUBULAR ADENOMAS. Uterine prolapse. CONGENITAL BODY ASYMMETRY. Surgical History . Abdominal hysterectomy (~10/2011). PARTIAL. Breast, Lumpectomy (12/09/09). LEFT. Colonoscopy - IV Sedation (11/19/09). Hx of total knee replacement. BILATERAL. Recurrent major depression in partial remission (11/19/09). ASCENDING COLON AVM PREVIOUS FUNCTIONAL STATUS/SOCIAL/FAMILY SUPPORTS:: Margaux is and resides alone in [place], [place]. Her son, lAvaro and MAITE Mccoy reside in [facility] and talk via phone each day. Margaux's neighbor checks on her daily as well. CURRENT FUNCTIONAL STATUS:: Margaux was sleeping in the ICU, she is being treated for septic shock, EDUARDO, pneumonia, cellulitis and more at this time. Per MD, anticipate PT order when more medically stable, Palliative ordered today; awaiting updates. ADVANCE DIRECTIVES:: On file: Samantha Erickson as agent Has patient been provided with info about the portal/API?: Yes Did the patient sign up for the portal?: No CODE STATUS:: DNR/DNI INSURANCE COVERAGE / FINANCIAL ISSUES:: [facility] CURRENT HOME/COMMUNITY SERVICES/EQUIPMENT:: None, currently. PRIMARY CARE PHYSICIAN:: Jeanne Mosqueda POTENTIAL DISCHARGE NEEDS:: PT and Palliative consults. Evaluations for increased services, possible SNF coordination. PATIENT/FAMILY EDUCATION NEEDS:: Review discharge instructions, discuss Ask Me Three. ANTICIPATED BARRIERS TO DISCHARGE:: None identified at this time. TRANSPORTATION:: To be determined by disposition. PLAN:: Margaux remains in the ICU at this time, with multiple medical issues being treated. Anticipate once medically stable, she will have Palliative and PT consults to determine plan of care. CM continues to follow.
--- NOTE | 2022-01-23 10:35 | DI.CT_ITS ---
Exam(s) CT ABDOMEN PELVIS WO EXAM: CT ABDOMEN PELVIS WO INDICATION: septic shock, diarrhea, EDUARDO. COMPARISON: CT,NM,TMT NM MPI REST STRESS GRP from 06/04/2021 CR,XR XR PORTABLE CHEST AP from 01/23/2022 TECHNIQUE: FINDINGS: CT examination of the abdomen and pelvis was performed without contrast administration. This is a li mited study due to patient motion. Images obtained through the lung bases are unremarkable except small right pleural effusion period. The liver is unremarkable in appearance. Note is made of cholelithiasis, gallbladder is somewhat distended and bile ducts are CT normal. Pancreas appears normal. Spleen is unremarkable in appearance. Adrenals appear normal. The kidneys are unremarkable with no evidence of hydronephrosis, nephrolithiasis, or renal mass.. Ur inary bladder unremarkable. Abdominal aorta is of normal diameter and no major vascular abnormality is seen. No abdominal wall hernia. No abdominal or pelvic adenopathy. Uterus is atrophic or absent Vila catheter noted in the urinary bladder which is empty period. Appendix is normal. No evidence of diverticulitis or bowel obstruction. IMPRESSION: Limited scan, no evidence of acute process. Cholelithiasis noted. RADIATION DOSE DELIVERED: Total DLP Total DLP RADIATION OPTIMIZATION: All CT scans at this facility use at least one of these dose optimization te chniques: automated exposure control; mA and/or kV adjustment per patient size (includes targeted exa ms where dose is matched to clinical indication); or iterative reconstruction.
--- NOTE | 2022-01-23 10:40 | DI.CT_ITS ---
Exam(s) CT LOWER EXTREMITY RT WO EXAM: CT LOWER EXTREMITY RT WO CLINICAL HISTORY: cellulitis right lower leg, h/o R TKR TECHNIQUE: COMPARISON: No exams were available for comparison FINDINGS: CT examination of the lower extremities was performed without contrast administration. There are fitz ateral total knee joint replacements. There are severe degenerative changes involving joints both an kles period no gross abscess identified in the soft tissues. There is generalized soft tissue edema both lower extremities. No focal bony lesion identified. IMPRESSION: No evidence of abscess or osteomyelitis by CT criteria. RADIATION DOSE DELIVERED: Total DLP DATA REPOSITORY: All CT scans at this facility are submitted to the National Radiology Data Registry (NRDR) Dose Index Registry (DIR) with the [employer] ([employer]). RADIATION OPTIMIZATION: All CT scans at this facility use at least one of these dose optimization te chniques: automated exposure control; mA and/or kV adjustment per patient size (includes targeted exa ms where dose is matched to clinical indication); or iterative reconstruction.
[2022-01-23] MEDS: PIPERACILLIN/TAZO 3.375 GM in Normal Saline 50 ML IVPB ×2 (11:56→18:02)
[2022-01-23] MEDS: Calcium 600mg/Vit D 200U TAB 1 TAB PO ×2 (12:21→20:47)
[2022-01-23] MEDS: Acetaminophen 325 MG TAB PO ×2 (12:21→20:46)
[2022-01-23] MEDS: Multivitamin TAB 1 TAB PO (12:22)
[2022-01-23] MEDS: Ferrous Sulfate 325 MG TAB PO (12:22)
[2022-01-23] MEDS: Aspirin 81 MG CHEW PO (12:22)
--- NOTE | 2022-01-23 14:06 | W.ORTHOCONSU ---
History of Present Illness Narrative: Ms. Zamora is an 81-year-old female currently inpatient in ICU for septic shock, pneumonia with pulmonary edema, EDUARDO, rhabdomyolysis and right lower extremity cellulitis. History was obtained from patient as well as her son, Alvaro. Patient lives alone but has her son who lives in [place] check in on her daily via phone calls as well as a next door neighbor daily. When she was noted to have labored breathing and altered mental status she was brought to the ER and admitted to ICU. Based on her cellulitis along the right lower extremity in setting of right TKA orthopedics was consulted. Patient is ~18 years status post right TKA completed in [place]. She is also status post left TKA completed around similar time. Patient reports long standing history of right knee swelling following TKA and had previously seen Dr. Kaiser for work-up when she had right knee pain. States she did not require any follow-up and her right knee discomfort resolved; continued to have swelling along the right knee. Patient denies noticing any right lower extremity changes. Denies any right knee discomfort at rest, with motion or walking. Her ambulation is significantly limited by her bilateral foot deformity; denies right knee limitation for ambulation status. Reports a fall several months ago and suffered several rib fractures - denies any change to her right knee. Denies any more recent falls or injuries. Assessment and Plan Assessment and plan (1) Presence of total right knee joint prosthesis: Status: Acute (2) Cellulitis of leg, right: Status: Acute Assessment and plan: Plan: Ms. Zamora is an 81-year-old female currently inpatient in ICU for septic shock, pneumonia with pulmonary edema, EDUARDO, rhabdomyolysis and right lower extremity cellulitis. Orthopedic consult was ordered for right lower extremity cellulitis in presence of right TKA. Patient is ~18 years status post left and right TKA completed in [place] around 2003. Reports long standing history of right knee swelling following TKA and had previously seen Dr. Kaiser for work-up in 2019. Reviewed her previous orthopedic notes by Dr. Kaiser which report history of right knee discomfort that was thought to be due to loosening of the prostheses or damage to the patellar component. She was also [place] [facility] on [place]/15[place]18 at which time they believed the discomfort was also coming from deconditioning. However, upon follow-up she did not have any continued right knee discomfort. Patient is well known to our orthopedic practice for left rotator cuff tear arthropathy and has received Depo-medrol injections as needed - no mention of right knee issues. Reviewed her CT scan of right lower extremity from 01/23/22 which shows bilateral TKA, no signs of effusion noted on Dr. Soria's read. As per read by Dr. Landaverde states the following: No evidence of abscess or osteomyelitis by CT criteria. Patient does have erythema and calor along the right lower extremity consistent with possible cellulitis as well as likely additional infectious processes present based on elevated WBC of 15.89 H as well as significantly elevated CRP of 19.24 H. However, she does not have isolated erythema along knee, discomfort with palpation, motion or at rest of her right knee which would be expected in the setting of an infected TKA. Based on lack of discomfort and physical examination educated patient and her son on treatment options regarding the right leg. Discussed possible need for aspiration to evaluate right knee effusion, however based on her lack of pain there is a low suspicion for infected TKA. If patient develops right knee pain would have low threshold to obtain right knee aspiration and send fluid for crystals, cell count and culture. I agree with the above documentation by Alley Atwood. I saw the patient a few hours later for repeat serial exam. The knee remains painless and reportedly at the patient's baseline. She demonstrates active range of motion without difficulty. She tolerates passive range of motion without discomfort. The leg erythema starts above the ankle and ends at the proximal leg with only a small area lateral to the knee. There is probably chronic knee edema and possibly a small effusion but nothing significant. She has chronic bilateral lower extremity deformities. No indication for acute orthopedic surgical intervention at this time. Discussed with patient, her family, and hospitalist Dr. Seth. Recommend routine AP and lateral 2 view knee x-rays when the patient is stable. Please call us to reevaluate the patient if any concerns about worsening knee status, specifically swelling or pain, and would have low threshold to perform joint aspiration at that time. Review of Systems Musculoskeletal Musculoskeletal: Denies arthralgias, Denies limited range of motion, Denies numbness and Denies tingling Neurologic Neurologic: Denies numbness and Denies tingling PFSH All Active Problems (Updated 01/23/22 @ 09:09 by Betina Seth MD) Discharge planning issues (Acute) DVT prophylaxis (Acute) Diarrhea (Acute) Transaminitis (Acute) Hypokalemia (Acute) Pulmonary edema (Acute) Toxic metabolic encephalopathy (Acute) Presence of total right knee joint prosthesis (Acute) Rhabdomyolysis (Acute) Septic shock (Acute) Sepsis syndrome (Acute) Acute dehydration (Acute) Multiple fractures of ribs of right side (Acute) Cellulitis of leg, right (Acute) Pneumonia (Acute) Acute kidney injury (Acute) Hyperlipidemia (Acute) ZHANG (dyspnea on exertion) (Acute) Acquired bilateral flat feet (Acute) Left rotator cuff tear arthropathy (Chronic) 80mg Depo-Medrol injection: 08/08/2020, 12/12/2020, 03/27/2021 Left shoulder pain (Acute) Facial basal cell cancer (Acute) Medical History Anemia ASCENDING COLON AVM Basal cell carcinoma of nose BREAST CANCER LEFT Diverticulosis Edema LIMB Foot deformity Hallux valgus Heart murmur SYSTOLIC Heartburn Hip pain, left Macular degeneration Mild memory disturbance Obesity Osteoarthritis of both hands Osteopenia Skin lesion TUBULAR ADENOMAS Uterine prolapse CONGENITAL BODY ASYMMETRY Surgical History Abdominal hysterectomy (~10/2011) PARTIAL Breast, Lumpectomy (12/09/09) LEFT Colonoscopy - IV Sedation (11/19/09) Hx of total knee replacement BILATERAL Recurrent major depression in partial remission (11/19/09) ASCENDING COLON AVM Family History Mother Alzheimer's disease Father Heart disease Lung cancer Sister Cirrhosis of liver Brother Acute myocardial infarction at 58 of IN Brother Diabetes Heart disease IN Brother Heart disease Stroke Son Heart disease age 40 IN with stents Social History Smoking/Tobacco Use Status: Never Smoking risk assessment performed?: Yes Alcohol Intake: current Alcohol Intake frequency: 0-2 drinks per day Drug use: Never Substance use type: does not use Household members: none Current gender identity: female What type of physical activity do you participate in: none Do you feel safe at home: Yes Exam Const General: cooperative, comfortable and no acute distress Orientation: alert and awake Resp Effort & Inspection: able to speak in complete sentences Extrem Other: Right lower extremity examination: Skin is intact - well healed incision is noted consistent with surgical history. There is mild edema and more significant erythema as well as calor noted along the right anterior tibia as well as along the knee joint to a lesser degree. Mild effusion is present. No tenderness to palpation along medial or lateral joint lines. Severe pes planus deformity is noted bilaterally. Patient is able to move her toes, ankle and limited motion of knee - limited by bed positioning - without discomfort. Passive knee ROM of near full extension to 50 degrees was non-irritable - limited by patient positioning in bed. Results Last Vital Signs Temp 102.7 F H 01/23/22 12:21 Pulse 96 H 01/23/22 11:00 Resp 19 01/23/22 11:20 BP 107/65 01/23/22 11:00 Pulse Ox 95 01/23/22 11:20 Labs Result diagrams: 01/23/22 05:15 01/23/22 05:15 Labs: Laboratory Results - last 24 hr 01/22/22 01/22/22 01/22/22 21:30 21:30 21:30 WBC 14.74 H RBC 4.73 Hgb 13.8 Hct 42.8 MCV 91 MCH 29.2 MCHC 32.2 RDW 17.2 H Plt Count 262 MPV 10.0 Immature Gran % 0.9 Neutrophils % 92.5 Band Neutrophils % Lymphocytes % 3.9 Monocytes % 2.0 Eosinophils % 0.0 Basophils % 0.7 Metamyelocytes % Nucleated RBC % 0.0 Absolute Neutrophils 13.63 H Absolute Lymphocytes 0.57 L Absolute Monocytes 0.29 Absolute Eosinophils 0.00 Absolute Basophils 0.10 RBC Morphology PT INR VBG Lactate 2.5 H* Sodium 137 Potassium 3.8 Chloride 101 Carbon Dioxide 24.5 Anion Gap 11.5 H BUN 44 H Creatinine 2.0 H Est GFR (CKD-EPI 2020) 24.33 Glucose 115 H Calcium 8.5 Magnesium 1.7 L Total Bilirubin 1.3 H AST 158 H ALT 49 Alkaline Phosphatase 72 Creatine Kinase Troponin I < 50 C-Reactive Protein Total Protein 7.2 Albumin 3.1 L Lipase Procalcitonin TSH Urine Color Urine Clarity Urine pH Ur Specific [place] Urine Protein Urine Ketones Urine Blood Urine Nitrite Urine Bilirubin Urine Urobilinogen Ur Leukocyte Esterase Urine RBC Urine WBC Ur Epithelial Cells Urine Crystals Urine Bacteria Urine Casts Urine Mucus Ur Culture Indicated? Urine Glucose COVID-19 Source SARS-CoV-2 (PCR) Influenza Type A (PCR) Influenza Type B (PCR) RSV (PCR) Add-On Test Request 01/22/22 01/22/22 01/22/22 21:30 22:30 22:40 WBC RBC Hgb Hct MCV MCH MCHC RDW Plt Count MPV Immature Gran % Neutrophils % Band Neutrophils % Lymphocytes % Monocytes % Eosinophils % Basophils % Metamyelocytes % Nucleated RBC % Absolute Neutrophils Absolute Lymphocytes Absolute Monocytes Absolute Eosinophils Absolute Basophils RBC Morphology PT INR VBG Lactate Sodium Potassium Chloride Carbon Dioxide Anion Gap BUN Creatinine Est GFR (CKD-EPI 2020) Glucose Calcium Magnesium Total Bilirubin AST ALT Alkaline Phosphatase Creatine Kinase Troponin I C-Reactive Protein Total Protein Albumin Lipase Procalcitonin TSH 3.09 Urine Color Urine Clarity Urine pH Ur Specific [place] Urine Protein Urine Ketones Urine Blood Urine Nitrite Urine Bilirubin Urine Urobilinogen Ur Leukocyte Esterase Urine RBC Urine WBC Ur Epithelial Cells Urine Crystals Urine Bacteria Urine Casts Urine Mucus Ur Culture Indicated? Urine Glucose COVID-19 Source Cancelled Nasal/Nares SARS-CoV-2 (PCR) Cancelled Negative Influenza Type A (PCR) Cancelled Influenza Type B (PCR) Cancelled RSV (PCR) Cancelled Add-On Test Request 01/22/22 01/23/22 01/23/22 23:25 01:30 05:15 WBC RBC Hgb Hct MCV MCH MCHC RDW Plt Count MPV Immature Gran % Neutrophils % Band Neutrophils % Lymphocytes % Monocytes % Eosinophils % Basophils % Metamyelocytes % Nucleated RBC % Absolute Neutrophils Absolute Lymphocytes Absolute Monocytes Absolute Eosinophils Absolute Basophils RBC Morphology PT 12.1 H INR 1.2 H VBG Lactate Sodium 139 Potassium 3.4 L Chloride 105 Carbon Dioxide 21.7 Anion Gap 12.3 H BUN 41 H Creatinine 1.5 H Est GFR (CKD-EPI 2020) 34.36 Glucose 128 H Calcium 7.8 L Magnesium 2.3 Total Bilirubin 1.5 H AST 282 H ALT 83 H Alkaline Phosphatase 66 Creatine Kinase Troponin I C-Reactive Protein Total Protein 6.3 L Albumin 2.7 L Lipase Procalcitonin TSH Urine Color Yellow Urine Clarity Cloudy Urine pH 5.5 Ur Specific [place] 1.020 Urine Protein 30 H Urine Ketones Negative Urine Blood Large H Urine Nitrite Negative Urine Bilirubin Negative Urine Urobilinogen 0.2 Ur Leukocyte Esterase Negative Urine RBC 5-10 H Urine WBC 0-2 Ur Epithelial Cells Rare Urine Crystals Moderate Amorphous Urine Bacteria Rare Urine Casts 3-5 Hyaline Urine Mucus Negative Ur Culture Indicated? No Urine Glucose Negative COVID-19 Source SARS-CoV-2 (PCR) Influenza Type A (PCR) Influenza Type B (PCR) RSV (PCR) Add-On Test Request 01/23/22 01/23/22 01/23/22 05:15 05:15 05:15 WBC 15.89 H RBC 4.61 Hgb 13.6 Hct 41.7 MCV 91 MCH 29.5 MCHC 32.6 RDW 17.4 H Plt Count 239 MPV 10.0 Immature Gran % 0.0 Neutrophils % 83.0 Band Neutrophils % 8 Lymphocytes % 6.0 Monocytes % 2.0 Eosinophils % 0.0 Basophils % 0.5 Metamyelocytes % 1 Nucleated RBC % 0.0 Absolute Neutrophils 14.46 H Absolute Lymphocytes 0.95 L Absolute Monocytes 0.32 Absolute Eosinophils 0.00 Absolute Basophils 0.08 RBC Morphology Normal PT INR VBG Lactate 1.2 Sodium Potassium Chloride Carbon Dioxide Anion Gap BUN Creatinine Est GFR (CKD-EPI 2020) Glucose Calcium Magnesium Total Bilirubin AST ALT Alkaline Phosphatase Creatine Kinase Troponin I C-Reactive Protein Total Protein Albumin Lipase Procalcitonin TSH Urine Color Urine Clarity Urine pH Ur Specific [place] Urine Protein Urine Ketones Urine Blood Urine Nitrite Urine Bilirubin Urine Urobilinogen Ur Leukocyte Esterase Urine RBC Urine WBC Ur Epithelial Cells Urine Crystals Urine Bacteria Urine Casts Urine Mucus Ur Culture Indicated? Urine Glucose COVID-19 Source SARS-CoV-2 (PCR) Influenza Type A (PCR) Influenza Type B (PCR) RSV (PCR) Add-On Test Request DONE 01/23/22 01/23/22 05:15 05:15 WBC RBC Hgb Hct MCV MCH MCHC RDW Plt Count MPV Immature Gran % Neutrophils % Band Neutrophils % Lymphocytes % Monocytes % Eosinophils % Basophils % Metamyelocytes % Nucleated RBC % Absolute Neutrophils Absolute Lymphocytes Absolute Monocytes Absolute Eosinophils Absolute Basophils RBC Morphology PT INR VBG Lactate Sodium Potassium Chloride Carbon Dioxide Anion Gap BUN Creatinine Est GFR (CKD-EPI 2020) Glucose Calcium Magnesium Total Bilirubin AST ALT Alkaline Phosphatase Creatine Kinase 9949 H Troponin I C-Reactive Protein 19.24 H Total Protein Albumin Lipase 29 Procalcitonin 16.5 TSH Urine Color Urine Clarity Urine pH Ur Specific [place] Urine Protein Urine Ketones Urine Blood Urine Nitrite Urine Bilirubin Urine Urobilinogen Ur Leukocyte Esterase Urine RBC Urine WBC Ur Epithelial Cells Urine Crystals Urine Bacteria Urine Casts Urine Mucus Ur Culture Indicated? Urine Glucose COVID-19 Source SARS-CoV-2 (PCR) Influenza Type A (PCR) Influenza Type B (PCR) RSV (PCR) Add-On Test Request
[2022-01-23 15:03] LABS: C Diff PCR Negative (Negative)
[2022-01-23] MEDS: Pantoprazole 40 MG VIAL IVP (15:28)
[2022-01-23] MEDS: Furosemide 20 MG/2 ML VIAL IVP (15:28)
[2022-01-23] MEDS: Loperamide 2 MG CAP PO (15:29)
--- NOTE | 2022-01-23 15:39 | PHA.REVIEW2 ---
Pharmacy Admission Review - Admission Clinical Review (Last Reviewed 01/23/22 @ 06:21 by Roddy Montoya) Discharge planning issues (Acute) DVT prophylaxis (Acute) Diarrhea (Acute) Transaminitis (Acute) Hypokalemia (Acute) Pulmonary edema (Acute) Toxic metabolic encephalopathy (Acute) Presence of total right knee joint prosthesis (Acute) Rhabdomyolysis (Acute) Septic shock (Acute) Sepsis syndrome (Acute) Acute dehydration (Acute) Cellulitis of leg, right (Acute) Pneumonia (Acute) Acute kidney injury (Acute) No Known Allergies Allergy (Verified 11/10/21 10:02) Resuscitation Status DNR/DNI Height 5 ft 2.4 in Weight 88.8 kg - Renal Dosing Renal Dosing: BUN 41 mg/dL (7-18) H 01/23/22 05:15 Creatinine 1.5 mg/dL (0.55-1.02) H 01/23/22 05:15 Medications needing adjustments: Reviewed List of meds needing interventions: eCrCl 30 ml/min, zosyn dosing is appropriate given indication (septic shock) - Anticoagulation Anticoagulation: Hgb 13.6 g/dL (11.2-15.7) 01/23/22 05:15 Hct 41.7 % (36.0-46.0) 01/23/22 05:15 Plt Count 239 10^3/uL (130-400) 01/23/22 05:15 INR 1.2 (0.9-1.1) H 01/22/22 23:25 Creatinine 1.5 mg/dL (0.55-1.02) H 01/23/22 05:15 DVT Prophylaxis: Reviewed Medications: Heparin - Opiate Usage Evaluate Pain Scale/Pains Meds: N/A - Relevant Labs Sodium 139 mmol/L (136-145) 01/23/22 05:15 Potassium 3.4 mmol/L (3.5-5.1) L 01/23/22 05:15 Chloride 105 mmol/L (98-107) 01/23/22 05:15 Magnesium 2.3 mg/dL (1.8-2.4) 01/23/22 05:15 C-Reactive Protein 19.24 mg/dL (0.0-0.3) H 01/23/22 05:15 Electrolytes, C-Reactive P, ESR: Reviewed (infusing compounded D5LR with 40 meq of KCl at 100 ml/hr -- will closely monitor potassium) - DM Control DM Control: Glucose 128 mg/dL (74-106) H 01/23/22 05:15 DM Control: N/A - Cardiac Review Cardiac Review: Troponin I < 50 ng/L (<or=60) 01/22/22 21:30 BP, HR, EF%: Reviewed - Qtc Review QTc: Reviewed If Elevated, List meds needing intervention: QTc 540 on admission -- will monitor for addition of qt prolonging meds - IV to PO Switch IV Medications: Reviewed - Home Meds Home Med List reviewed: Reviewed Relevent Home Meds Not ordered & why?: not ordered: furosemide (IV ordered) - Current meds Current Medication Order Review: Reviewed (empiric coverage with vanco and zosyn, IVF for rhabdo, following closely with lasix for diuresis (d/t pulm htn))
[2022-01-23] MEDS: Heparin 5,000 UNITS/ML VIAL 5000 UNITS SC (20:46)
[2022-01-23] MEDS: Glucosamine/Chondroitin CAP 1 CAP PO (20:47)
[2022-01-23] MEDS: Nystatin POWDER 60 GM JAR TP (20:47)
[2022-01-23] MEDS: Ketorolac 15 MG/ML VIAL IVP (22:45)
[2022-01-23 23:01] LABS: Legionella Ag Detection Urine Negative (Negative)
[2022-01-24] VITALS (83 sets, daily range): BP systolic 68–122; BP diastolic 41–102; PULSE 66–163; RESP 16–37; TEMP 36.4–37.2; O2SAT 89–98
[2022-01-24] MEDS: PIPERACILLIN/TAZO 3.375 GM in Normal Saline 50 ML IVPB ×2 (00:04→05:34)
[2022-01-24] MEDS: VANCOMYCIN/WATER (PEG) 1 GM/200 ML BAG IVPB (02:00)
[2022-01-24 06:25] LABS: Abs Immature Grans 0.11 10^3/uL (0.0-0.06); HCT 38.9 % (36.0-46.0); HGB 12.2 g/dL (11.2-15.7); MCH 29.3 pg (27.0-33.0); MCHC 31.4 % (32.0-36.0); MCV 94 fL (80-95); MPV 10.5 fL (8.0-11.0); Platelet Count 207 10^3/uL (130-400); RBC 4.16 10^6/uL (3.93-5.22); RDW 17.7 % (11.7-14.6); RDW-SD 61.5 fL; WBC 12.77 10^3/uL (4.4-10.8)
[2022-01-24 06:56] LABS: ALT 88 U/L (14-59); AST 255 U/L (15-37); Albumin 2.2 g/dL (3.4-5.0); Alkaline Phosphatase 65 U/L (46-116); Anion Gap 6.9 mmol/L (3-11); BUN 30 mg/dL (7-18); Bilirubin, Direct 0.2 mg/dL (0.0-0.2); Bilirubin, Total 0.9 mg/dL (0.2-1.0); C-Reactive Protein 24.06 mg/dL (0.0-0.3); CO2 26.1 mmol/L (21.0-32.0); CREATININE 1.3 mg/dL (0.55-1.02); Calcium 8.2 mg/dL (8.5-10.1); Chloride 107 mmol/L (98-107); Glucose 163 mg/dL (74-106); Magnesium 2.1 mg/dL (1.8-2.4); Potassium 3.8 mmol/L (3.5-5.1); Sodium 140 mmol/L (136-145); Total Protein 5.9 g/dL (6.4-8.2)
[2022-01-24 07:03] LABS: Creatine Kinase 6409 U/L (26-192)
[2022-01-24 07:54] LABS: Absolute Lymphocyte Count 1.53 10^3/uL (1.2-3.4); Absolute Monocyte Count 0.26 10^3/uL (0.1-0.8); Absolute Neutrophil Count 10.98 10^3/uL (1.2-6.7); Atypical Lymphocytes % 2; Bands % 1; Diff Comment Manual Differential; RBC Morphology Normal
[2022-01-24] MEDS: Normal Saline Flush 10 ML SYR IVP (09:17)
[2022-01-24] MEDS: Heparin 5,000 UNITS/ML VIAL 5000 UNITS SC ×2 (09:18→20:42)
[2022-01-24] MEDS: Pantoprazole 40 MG VIAL IVP (09:18)
[2022-01-24] MEDS: Lactated Ringers 1,000 ML 999 ML IV (09:20)
[2022-01-24] MEDS: Aspirin 81 MG CHEW PO (09:32)
[2022-01-24] MEDS: Multivitamin TAB 1 TAB PO (09:32)
[2022-01-24] MEDS: Glucosamine/Chondroitin CAP 1 CAP PO ×2 (09:32→20:41)
[2022-01-24] MEDS: Calcium 600mg/Vit D 200U TAB 1 TAB PO ×2 (09:32→20:41)
[2022-01-24] MEDS: Ferrous Sulfate 325 MG TAB PO (09:33)
[2022-01-24] MEDS: Nystatin POWDER 60 GM JAR TP ×2 (09:33→18:44)
[2022-01-24] MEDS: CEFEPIME 2 GM in Normal Saline 100 ML IVPB ×2 (10:28→22:07)
--- NOTE | 2022-01-24 10:39 | PUCC_ITS ---
General Date of Service Date of service: 01/24/22 Time of Service: 07:30 Reason for Admission to ICU: Shock Cellulitis Assessment and Plan Assessment and plan (1) Diarrhea: Status: Acute (2) Transaminitis: Status: Acute (3) Rhabdomyolysis: Status: Acute (4) Sepsis syndrome: Status: Acute (5) Hypovolemic shock: Status: Acute (6) Cellulitis of leg, right: Status: Acute (7) Acute kidney injury: Status: Acute (8) Respiratory failure with hypoxia: Status: Acute Assessment and plan: This is an 81 yo woman with cellulitis, recent significant volume loss from diarrhea, rhabdomyolysis and an EDUARDO admitted to the ICU. She was receiving some fluid but was also being diuresed. She has been on Levophed for suspected septci shock. It is highly unlikely that she is in septic shock from the cellulitis. Typically cellulitis does not cause septic shock. On POCUS she is dry and given the history of her diarrhea, EDUARDO and rhabdo, she likely is experiencing hypovolemic shock from dehydration. I recommend fluid boluses to euvolemia, and started with one liter this morning. I advise against diuresis at this time unless her oxygen requirements were to increase. Recommendations Pulmonary: Acute hypoxic respiratory failure - supplemental O2 for sats >90% - incentive spirometry - prn albuterol added Cardiac: Hypovolemic Shock - stop diuresis unless O2 needs increase - 1L LR this morning - would not give more than 2-3 liters today - Levophed as needed - reassessment of fluid status tomorrow Renal: EDUARDO due to rhabdo - fluids as above - no need for continuous fluids - bolus to euvolemia I&O: Intake & Output 01/21/22 01/22/22 01/23/22 01/24/22 23:59 23:59 23:59 23:59 Intake Total 2962.808 / 2962.808 1764.663 / 1764.663 Output Total 2285 / 2525 590 / 590 Balance 677.808 / 446.463 1433.663 / 1174.663 Weight 88 kg 88.8 kg 85.6 kg Daily Fluid Goal:: positive today, even moving forward GI Nutrition: Transaminitis - OK for diet - improving - due to shock Date of Last Bowel Movement: 01/24/22 Infectious Disease: Cellulitis with sepsis - continue vanc - would change zosyn to cefepime given EDUARDO Hematologic: No acute concern Neurologic: No acute concerns Endocrine: No acute concerns Lines: Right CVC Prophylaxis: heparin Protonix Code Status: Resuscitation Status DNR/DNI Subjective Critical and life-threatening events over the past 24 hours: This is an 81 yo woman admitted to the ICU for shock, cellulitis and rhabdomyolysis. She required central line placement and Levophed. It has been off and on yesterday and she has been given antibiotics for the cellulitis, fluids and diuresis. Her echo is normal, as is her CXR. She feels well this morning. No pain. Per nursing reports the leg looks improved from previous. Exam Narrative Exam Narrative: POCUS 01/24/22: All views visualized. Good views. Normal appearing LVEF. RV slightly dilated, but seems to function normally. IVC is small and underfilled. Gen: NAD, normal respiratory effort, well-nourished HENT: PERRL, nasal turbinates normal without erythema or inflammation, moist oral mucosa, Mallampati 2, No LAD or JVD Chest: No respiratory distress, normal appearance of chest, clear to auscultation bilaterally, no crackles or wheezes, normal inspiratory effort Heart: regular rate and rhythym, no murmurs, rubs or gallops Abdomen: Non-distended, soft, non tender Extremities: Right leg edema and redness. Neuro: AAOx3 , non focal Psych: cooperative, appropriate mental affect Most Recent VS/Results Last Vital Signs Temp 36.4 C L 01/24/22 08:30 Pulse 69 01/24/22 09:31 Resp 21 01/24/22 09:31 BP 105/54 L 01/24/22 09:31 Pulse Ox 93 01/24/22 10:25 Laboratory Results - last 24 hr 01/23/22 01/23/22 01/23/22 12:15 12:15 12:29 WBC RBC Hgb Hct MCV MCH MCHC RDW Plt Count MPV Immature Gran % Neutrophils % Band Neutrophils % Lymphocytes % Atypical Lymphs % Monocytes % Eosinophils % Basophils % Nucleated RBC % Absolute Neutrophils Absolute Lymphocytes Absolute Monocytes Absolute Eosinophils Absolute Basophils RBC Morphology Sodium Potassium Chloride Carbon Dioxide Anion Gap BUN Creatinine Est GFR (CKD-EPI 2020) Glucose Calcium Magnesium Total Bilirubin Conjugated Bilirubin AST ALT Alkaline Phosphatase Creatine Kinase C-Reactive Protein Total Protein Albumin Stool Campylobacter PCR Cancelled Stl C.difficile Tox PCR Negative Stool Salmonella PCR Cancelled Stool Shigella PCR Cancelled Urine Legionella Ag Negative Shiga Toxin (PCR) Cancelled 01/24/22 01/24/22 05:30 05:30 WBC 12.77 H RBC 4.16 Hgb 12.2 Hct 38.9 MCV 94 MCH 29.3 MCHC 31.4 L RDW 17.7 H Plt Count 207 MPV 10.5 Immature Gran % 0.0 Neutrophils % 85.0 Band Neutrophils % 1 Lymphocytes % 10.0 Atypical Lymphs % 2 Monocytes % 2.0 Eosinophils % 0.0 Basophils % 0.0 Nucleated RBC % 0.0 Absolute Neutrophils 10.98 H Absolute Lymphocytes 1.53 Absolute Monocytes 0.26 Absolute Eosinophils 0.00 Absolute Basophils 0.00 RBC Morphology Normal Sodium 140 Potassium 3.8 Chloride 107 Carbon Dioxide 26.1 Anion Gap 6.9 BUN 30 H Creatinine 1.3 H Est GFR (CKD-EPI 2020) 40.80 Glucose 163 H Calcium 8.2 L Magnesium 2.1 Total Bilirubin 0.9 Conjugated Bilirubin 0.2 AST 255 H ALT 88 H Alkaline Phosphatase 65 Creatine Kinase 6409 H C-Reactive Protein 24.06 H Total Protein 5.9 L Albumin 2.2 L Stool Campylobacter PCR Stl C.difficile Tox PCR Stool Salmonella PCR Stool Shigella PCR Urine Legionella Ag Shiga Toxin (PCR) Review of Systems All systems reviewed & are unremarkable except as noted in HPI and below Time spent with patient Time spent in Critical Care: 45 Time spent in Critical care included: Coordination of care, Chart review, Documenting critically ill care, Time at immediate bedside and Discussing critically ill care with other medical staff Multi-Disciplinary Checklist Lines/Tubes CENTRAL LINE: yes, Central Line Day#: 1 ARTERIAL LINE: no BINGHAM: yes, [place] Day#: 1 ENDOTRACHEAL TUBE: no ICU Maintenance GLUCOSE 140-180mg/dL: yes NUTRITION AT GOAL: no, Reason/Intervention: start diet today PRESSURE ULCER: no RESTRAINTS: no ANTIBIOTICS(if yes, consider Stewardship): Yes Social Issues FAMILY UPDATED: yes PT/OT: no, Reason/Intervention: once off pressors will re evaluate GOALS/DISPOSITION/FURNITURE DELIVERY DRIVER: yes CODE STATUS: DNR/DNI Prophylaxis DVT PROPHYLAXIS: yes GI PROPHYLAXIS: yes, Indication: vasopressor use
--- NOTE | 2022-01-24 10:45 | W.PM.PROGNOT ---
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: Status: Acute (2) Cellulitis of leg, right: Status: Acute Assessment and plan: 81 year old female with right leg cellulitis and right TKA from ~2003 Chart reviewed prior to visit; patient was seen this morning by orthopedic care team Subjectively and objectively improved No signs or symptoms prosthetic joint infection Reviewed her case and treatment plan with patient and her family in detail May cancel knee x-rays Discussed right lower extremity symptoms and no need for orthopedic intervention with her primary medical team Call ortho for re-evaluation should knee status change Objective Last Vital Signs Temp 97.5 F L 01/24/22 08:30 Pulse 69 01/24/22 09:31 Resp 21 01/24/22 09:31 BP 105/54 L 01/24/22 09:31 Pulse Ox 93 01/24/22 10:25 Laboratory Results - last 24 hr 01/23/22 01/23/22 01/23/22 12:15 12:15 12:29 WBC RBC Hgb Hct MCV MCH MCHC RDW Plt Count MPV Immature Gran % Neutrophils % Band Neutrophils % Lymphocytes % Atypical Lymphs % Monocytes % Eosinophils % Basophils % Nucleated RBC % Absolute Neutrophils Absolute Lymphocytes Absolute Monocytes Absolute Eosinophils Absolute Basophils RBC Morphology Sodium Potassium Chloride Carbon Dioxide Anion Gap BUN Creatinine Est GFR (CKD-EPI 2020) Glucose Calcium Magnesium Total Bilirubin Conjugated Bilirubin AST ALT Alkaline Phosphatase Creatine Kinase C-Reactive Protein Total Protein Albumin Stool Campylobacter PCR Cancelled Stl C.difficile Tox PCR Negative Stool Salmonella PCR Cancelled Stool Shigella PCR Cancelled Urine Legionella Ag Negative Shiga Toxin (PCR) Cancelled 01/24/22 01/24/22 05:30 05:30 WBC 12.77 H RBC 4.16 Hgb 12.2 Hct 38.9 MCV 94 MCH 29.3 MCHC 31.4 L RDW 17.7 H Plt Count 207 MPV 10.5 Immature Gran % 0.0 Neutrophils % 85.0 Band Neutrophils % 1 Lymphocytes % 10.0 Atypical Lymphs % 2 Monocytes % 2.0 Eosinophils % 0.0 Basophils % 0.0 Nucleated RBC % 0.0 Absolute Neutrophils 10.98 H Absolute Lymphocytes 1.53 Absolute Monocytes 0.26 Absolute Eosinophils 0.00 Absolute Basophils 0.00 RBC Morphology Normal Sodium 140 Potassium 3.8 Chloride 107 Carbon Dioxide 26.1 Anion Gap 6.9 BUN 30 H Creatinine 1.3 H Est GFR (CKD-EPI 2020) 40.80 Glucose 163 H Calcium 8.2 L Magnesium 2.1 Total Bilirubin 0.9 Conjugated Bilirubin 0.2 AST 255 H ALT 88 H Alkaline Phosphatase 65 Creatine Kinase 6409 H C-Reactive Protein 24.06 H Total Protein 5.9 L Albumin 2.2 L Stool Campylobacter PCR Stl C.difficile Tox PCR Stool Salmonella PCR Stool Shigella PCR Urine Legionella Ag Shiga Toxin (PCR)
[2022-01-24] MEDS: Loperamide 2 MG CAP PO ×3 (12:39→20:42)
[2022-01-24] MEDS: Lactated Ringers 1,000 ML 1000 ML IV (13:25)
--- NOTE | 2022-01-24 14:17 | W.PALLCONSUL ---
Date of service: 01/24/22 Time of Service: 14:17 History of Present Illness Narrative: Margaux was seen in her hospital room with her son, Alvaro present. She reports feeling better, however, she does not remember coming into the hospital or the time leading up to it. Alvaro reports that they had planned prior to this hospitalization, that she will go stay with him and his family in [place] for the winter. She has Hx of Alzheimer's, mild, she is still able to live independently with her neighbor checking on her frequently and her son and a friend calling daily. She hopes to return back to her home at [facility] after staying with Alvaro for approximately 5 months. If rehab is recommended after this hospitalization, they would prefer that she be placed in [place] near Alvaro if possible. She has 2 other sons and a nephew that she helped raise. Alvaro notes that she has a lot of support. Discussed that if she returns to her home in [place], Palliative care can follow her. Alvaro verbalizes understanding and will reach out if/when she comes back home. Reviewed CODE STATUS- she is a DNR/DNI, states she has Advanced Directives, however, we do not have this on file. Assessment and Plan Assessment and plan (1) Cellulitis of leg, right: Status: Acute (2) Septic shock: Status: Acute (3) Respiratory failure with hypoxia: Status: Acute (4) Acute kidney injury: Status: Acute (5) Hypovolemic shock: Status: Acute (6) Diarrhea: Status: Acute (7) Toxic metabolic encephalopathy: Status: Acute (8) Rhabdomyolysis: Status: Acute (9) Alzheimer disease: Status: Chronic Assessment and plan: Margaux is a very pleasant 81 yo female with early alzheimer's dementia who is currently hospitalized in the ICU with sepsis r/t cellulitis of the RLE and rhabdomyolysis. She is a DNR/DNI- states she has AD, we do not have on file. Will ask CM to obtain copy from PCP if able. The plan for her is to go to her son, Alvaro's home in [place] for the winter, approximately 5 months. This plan was in place prior to this hospitalization and they are ready for her. If rehab is recommended, they would prefer rehab in [place] if possible. She has a supportive family/friends. Encouraged to f/u with Palliative when she returns to her home in [place]. Review of Systems Narrative: Denies concerns. 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 (Acute) Rhabdomyolysis (Acute) Septic shock (Acute) Sepsis syndrome (Acute) Acute dehydration (Acute) Multiple fractures of ribs of right side (Acute) Cellulitis of leg, right (Acute) Pneumonia (Acute) Acute kidney injury (Acute) Hyperlipidemia (Acute) ZHANG (dyspnea on exertion) (Acute) Acquired bilateral flat feet (Acute) Left rotator cuff tear arthropathy (Chronic) 80mg Depo-Medrol injection: 08/08/2020, 12/12/2020, 03/27/2021 Left shoulder pain (Acute) Facial basal cell cancer (Acute) Medical History Anemia ASCENDING COLON AVM Basal cell carcinoma of nose BREAST CANCER LEFT Diverticulosis Edema LIMB Foot deformity Hallux valgus Heart murmur SYSTOLIC Heartburn Hip pain, left Macular degeneration Mild memory disturbance Obesity Osteoarthritis of both hands Osteopenia Skin lesion TUBULAR ADENOMAS Uterine prolapse CONGENITAL BODY ASYMMETRY Surgical History Abdominal hysterectomy (~10/2011) PARTIAL Breast, Lumpectomy (12/09/09) LEFT Colonoscopy - IV Sedation (11/19/09) Hx of total knee replacement BILATERAL Recurrent major depression in partial remission (11/19/09) ASCENDING COLON AVM Family History Mother Alzheimer's disease Father Heart disease Lung cancer Sister Cirrhosis of liver Brother Acute myocardial infarction at 58 of MO Brother Diabetes Heart disease MO Brother Heart disease Stroke Son Heart disease age 40 MO with stents Social History Smoking/Tobacco Use Status: Never Smoking risk assessment performed?: Yes Alcohol Intake: current Alcohol Intake frequency: 0-2 drinks per day Drug use: Never Substance use type: does not use Household members: none Current gender identity: female What type of physical activity do you participate in: none Do you feel safe at home: Yes Exam Narrative Exam Narrative: General: very pleasant, elderly female, sitting up in the chair in her ICU room. She is alert, oriented, slow to respond to questions at times. HEENT: normocephalic, atraumatic, EOMI, mmm. Neck: line to right neck. Cardiovascular: nontachycardic on monitor, not auscultated. Respiratory: respirations appear even and unlabored. Extremities: moves all 4 extremities, bilateral foot deformities noted. Results Last Vital Signs Temp 36.4 C L 01/24/22 11:36 Pulse 80 01/24/22 11:40 Resp 21 01/24/22 11:51 BP 104/73 01/24/22 11:51 Pulse Ox 97 01/24/22 11:51 Labs Result diagrams: 01/24/22 05:30 01/24/22 05:30 Labs: Laboratory Results - last 24 hr 01/23/22 01/23/22 01/23/22 12:15 12:15 12:29 WBC RBC Hgb Hct MCV MCH MCHC RDW Plt Count MPV Immature Gran % Neutrophils % Band Neutrophils % Lymphocytes % Atypical Lymphs % Monocytes % Eosinophils % Basophils % Nucleated RBC % Absolute Neutrophils Absolute Lymphocytes Absolute Monocytes Absolute Eosinophils Absolute Basophils RBC Morphology Sodium Potassium Chloride Carbon Dioxide Anion Gap BUN Creatinine Est GFR (CKD-EPI 2020) Glucose Calcium Magnesium Total Bilirubin Conjugated Bilirubin AST ALT Alkaline Phosphatase Creatine Kinase C-Reactive Protein Total Protein Albumin Stool Campylobacter PCR Cancelled Stl C.difficile Tox PCR Negative Stool Salmonella PCR Cancelled Stool Shigella PCR Cancelled Urine Legionella Ag Negative Shiga Toxin (PCR) Cancelled 01/24/22 01/24/22 05:30 05:30 WBC 12.77 H RBC 4.16 Hgb 12.2 Hct 38.9 MCV 94 MCH 29.3 MCHC 31.4 L RDW 17.7 H Plt Count 207 MPV 10.5 Immature Gran % 0.0 Neutrophils % 85.0 Band Neutrophils % 1 Lymphocytes % 10.0 Atypical Lymphs % 2 Monocytes % 2.0 Eosinophils % 0.0 Basophils % 0.0 Nucleated RBC % 0.0 Absolute Neutrophils 10.98 H Absolute Lymphocytes 1.53 Absolute Monocytes 0.26 Absolute Eosinophils 0.00 Absolute Basophils 0.00 RBC Morphology Normal Sodium 140 Potassium 3.8 Chloride 107 Carbon Dioxide 26.1 Anion Gap 6.9 BUN 30 H Creatinine 1.3 H Est GFR (CKD-EPI 2020) 40.80 Glucose 163 H Calcium 8.2 L Magnesium 2.1 Total Bilirubin 0.9 Conjugated Bilirubin 0.2 AST 255 H ALT 88 H Alkaline Phosphatase 65 Creatine Kinase 6409 H C-Reactive Protein 24.06 H Total Protein 5.9 L Albumin 2.2 L Stool Campylobacter PCR Stl C.difficile Tox PCR Stool Salmonella PCR Stool Shigella PCR Urine Legionella Ag Shiga Toxin (PCR)
--- NOTE | 2022-01-24 16:10 | CHAPLAIN ---
Margaux was visiting with two of her sons when I stopped in. she was resting in bed. I introduced myself, explained my role and offered support. Margaux had a Palliative Care consult earlier today. Currently the plan is for her to go live with her son Alvaro in [place] for the winter months.
--- NOTE | 2022-01-24 16:25 | PDOC.CMPRO ---
- If Service Date Differs Date of service: 01/24/22 Time of Service: 16:25 Care Management Progress Note S/O: Margaux remains in the ICU at this time. Her son, Alvaro is at her bedside, and met with Palliative care with Margaux; the plan at this time is for Margaux to return home with Alvaro upon discharge for approximately five months. CM continues to follow. A: 81 year old female admitted to [facility] 01/22/22 for sepsis syndrome, dehydration, cellulitis, PNA P: Margaux remains in the ICU at this time, with multiple medical issues being treated. At this point, the family plans on Margaux relocating to [place] to stay with her son, Alvaro and his . CM will support coordination of services, if indicated. CM continues to follow.
--- NOTE | 2022-01-24 17:36 | W.PM.PROGNOT ---
Date of Service Date of service: 01/24/22 Time of Service: 17:36 Assessment and Plan Assessment and plan (1) Diarrhea: Status: Acute Assessment and plan: C. Diff neg. No further loose stools. CT abd/pelvis w/o acute process noted. + cholelithiasis. (2) Transaminitis: Status: Acute Assessment and plan: In setting of rhabdomyolysis, septic shock (shock liver?), diarrhea. Monitor LFTs. Imaging as above. (3) Rhabdomyolysis: Status: Acute Assessment and plan: Most likely d/t immobility. CPK improving. Monitor. CT of RLE w/o acute findings. (4) Sepsis syndrome: Status: Acute Assessment and plan: Now corrected. (5) Hypovolemic shock: Status: Acute Assessment and plan: Now off norepinephrine after 2L IV fluids today. (6) Cellulitis of leg, right: Status: Acute Assessment and plan: Cont. Vancomycin. Change from Zosyn to Cefepime.. Clinically no improvement but still early in treatment course. (7) Respiratory failure with hypoxia: Status: Acute Assessment and plan: Pulmonary/critical care consulted/ Dr Araiza. Her POCUS exam showed. she is dry and given the history of her diarrhea, EDUARDO and rhabdo, she likely is experiencing hypovolemic shock from dehydration. Fluid boluses to euvolemia, and started with one liter this morning and another later in the day. She advise against diuresis at this time unless her oxygen requirements were to increase. Her saturations have gone from the upper 90's to mid to low 90's late this afternoon. Monitoring. (8) Acute kidney injury: Status: Acute Assessment and plan: In setting of hypovolemic shock but also rhabdomyolysis. With hypokalemia. Repleted potassium. Creatinine has improved from 2.0 to 1.3. Monitor. 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 Consult ortho. (10) Toxic metabolic encephalopathy: Status: Acute Assessment and plan: Improving. The patient does have a h/o Alzheimers. Continue treatment of infection. She is A&Ox3 this morning and answers all questions appropriately. (11) Pulmonary edema: Status: Acute Assessment and plan: Creatinine has improved from 2.0 to 1.3. Monitor. (12) Hypokalemia: Status: Acute Assessment and plan: Repleted (13) DVT prophylaxis: Status: Acute Assessment and plan: SC heparin to start tonight (14) Discharge planning issues: Status: Acute Assessment and plan: DNR/DNI Keep in ICU. C/s palliative care. Total Critical Care Time 60 minutes. Subjective Subjective Patient reports: no new complaints and afebrile; denies nausea or vomiting Interval history since last seen: She states her RLE cellulitis is more bright red today. Exam Narrative Exam Narrative: General: Pleasant elderly female sitting up in bed. Pleasant. Cooperative. HEENT: Sclera clear, MMM Heart:RRR, no murmur Lungs: faint crackles at B bases. Whistle-like wheeze in trachea. Moist cough w/o sputum expectorated. Mild increased WOB. Abdomen: soft, nontender, nondistended Extremities: B extremities warm with Charcot feet; RLE with erythema over tibial surface spreading over the R knee which is hot and swollen but not tender. Objective Last Vital Signs Temp 36.5 C 01/24/22 15:15 Pulse 85 01/24/22 16:03 Resp 27 H 01/24/22 16:03 BP 113/83 01/24/22 16:03 Pulse Ox 93 01/24/22 16:03 Laboratory Results - last 24 hr 01/23/22 01/24/22 01/24/22 12:29 05:30 05:30 WBC 12.77 H RBC 4.16 Hgb 12.2 Hct 38.9 MCV 94 MCH 29.3 MCHC 31.4 L RDW 17.7 H Plt Count 207 MPV 10.5 Immature Gran % 0.0 Neutrophils % 85.0 Band Neutrophils % 1 Lymphocytes % 10.0 Atypical Lymphs % 2 Monocytes % 2.0 Eosinophils % 0.0 Basophils % 0.0 Nucleated RBC % 0.0 Absolute Neutrophils 10.98 H Absolute Lymphocytes 1.53 Absolute Monocytes 0.26 Absolute Eosinophils 0.00 Absolute Basophils 0.00 RBC Morphology Normal Sodium 140 Potassium 3.8 Chloride 107 Carbon Dioxide 26.1 Anion Gap 6.9 BUN 30 H Creatinine 1.3 H Est GFR (CKD-EPI 2020) 40.80 Glucose 163 H Calcium 8.2 L Magnesium 2.1 Total Bilirubin 0.9 Conjugated Bilirubin 0.2 AST 255 H ALT 88 H Alkaline Phosphatase 65 Creatine Kinase 6409 H C-Reactive Protein 24.06 H Total Protein 5.9 L Albumin 2.2 L Urine Legionella Ag Negative
[2022-01-24] MEDS: Memantine 5 MG TAB PO (22:07)
[2022-01-25] VITALS (78 sets, daily range): BP systolic 71–142; BP diastolic 25–127; PULSE 60–125; RESP 4–37; TEMP 37.5–38.9; O2SAT 92–99
[2022-01-25] MEDS: VANCOMYCIN/WATER (PEG) 1 GM/200 ML BAG IVPB (05:04)
[2022-01-25 06:27] LABS: ESR 54 mm/hr (0-30)
[2022-01-25 06:39] LABS: C-Reactive Protein 15.04 mg/dL (0.0-0.3)
[2022-01-25] MEDS: Pantoprazole 40 MG VIAL IVP (07:26)
[2022-01-25] MEDS: Calcium 600mg/Vit D 200U TAB 1 TAB PO ×2 (07:27→20:26)
[2022-01-25] MEDS: Aspirin 81 MG CHEW PO (07:27)
[2022-01-25] MEDS: Normal Saline Flush 10 ML SYR IVP ×2 (07:27→15:55)
[2022-01-25] MEDS: Glucosamine/Chondroitin CAP 1 CAP PO ×2 (07:27→20:26)
[2022-01-25] MEDS: Ferrous Sulfate 325 MG TAB PO (07:27)
[2022-01-25] MEDS: Heparin 5,000 UNITS/ML VIAL 5000 UNITS SC ×2 (07:27→20:26)
[2022-01-25] MEDS: Multivitamin TAB 1 TAB PO (07:27)
[2022-01-25] MEDS: Nystatin POWDER 60 GM JAR TP ×2 (07:29→14:30)
[2022-01-25] MEDS: Memantine 5 MG TAB PO ×2 (07:32→20:26)
[2022-01-25 09:39] LABS: ALT 87 U/L (14-59); AST 188 U/L (15-37); Alkaline Phosphatase 73 U/L (46-116); Anion Gap 8.4 mmol/L (3-11); BUN 21 mg/dL (7-18); Bilirubin, Total 0.8 mg/dL (0.2-1.0); CO2 23.6 mmol/L (21.0-32.0); Calcium 8.3 mg/dL (8.5-10.1); Chloride 106 mmol/L (98-107); Glucose 105 mg/dL (74-106); Potassium 3.6 mmol/L (3.5-5.1); Sodium 138 mmol/L (136-145); Total Protein 5.6 g/dL (6.4-8.2)
[2022-01-25] MEDS: CEFEPIME 2 GM in Normal Saline 100 ML IVPB ×2 (09:46→22:50)
[2022-01-25] MEDS: Albuterol 2.5 MG/3 ML INH SOLN VIAL UPD (10:06)
--- NOTE | 2022-01-25 11:55 | W.PM.PROGNOT ---
Date of Service Date of service: 01/25/22 Time of Service: 11:56 Assessment and Plan Assessment and plan (1) Diarrhea: Status: Acute Assessment and plan: C. Diff neg. No further loose stools. CT abd/pelvis w/o acute process noted. + cholelithiasis. (2) Transaminitis: Status: Acute Assessment and plan: In setting of rhabdomyolysis, septic shock (shock liver?), diarrhea. Monitor LFTs. Trending down modestly. Imaging as above. (3) Rhabdomyolysis: Status: Acute Assessment and plan: Most likely d/t immobility. CPK improving. Monitor. CT of RLE w/o acute findings. (4) Sepsis syndrome: Status: Acute Assessment and plan: Now corrected. (5) Hypovolemic shock: Status: Acute Assessment and plan: Now off norepinephrine after 2L IV fluids today. (6) Cellulitis of leg, right: Status: Acute Assessment and plan: Cont. Vancomycin. Change from Zosyn to Cefepime.. Area involved has expanded only slightly but the bright red inflammation is darkening some. (7) Respiratory failure with hypoxia: Status: Acute Assessment and plan: Pulmonary/critical care consulted/ Dr Araiza. Her POCUS exam on 01/24 showed. she was dry and given the history of her diarrhea, EDUARDO and rhabdo, she likely was experiencing hypovolemic shock from dehydration. Given 2L IV fluids. Diureses only if appears to have pulmonary edema with decreasing saturations, increasing SOB. On 2L NC O2 saturations in the mid 90's. (8) Acute kidney injury: Status: Acute Assessment and plan: In setting of hypovolemic shock but also rhabdomyolysis. With hypokalemia. Repleted potassium. Creatinine now normalized at 1.0. Monitor. 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 Consider 2 view of knee if any worsening noted. (10) Toxic metabolic encephalopathy: Status: Acute Assessment and plan: Resolved. The patient does have a h/o Alzheimers. Continue treatment of infection. (11) Pulmonary edema: Status: Acute Assessment and plan: Diuresed, but then required fluid resuscitation. She does have some expiratory wheezes today; neb txs prn. (12) Hypokalemia: Status: Acute Assessment and plan: Repleted (13) DVT prophylaxis: Status: Acute Assessment and plan: SC heparin to start tonight (14) Discharge planning issues: Status: Acute Assessment and plan: DNR/DNI Keep in ICU. C/s palliative care. Total Critical Care Time 60 minutes. Subjective Subjective Patient reports: no new complaints, tolerating a regular diet (appetite continues to be diminished), shortness of breath (mild) and afebrile; denies nausea or vomiting Exam Narrative Exam Narrative: General: Pleasant elderly female sitting up in bed. Cooperative. HEENT: Sclera clear, MMM Heart:RRR, no murmur Lungs: faint crackles at B bases. Soft, coarse anterior breath sounds with expiratory wheeze. Abdomen: soft, nontender, nondistended Extremities: B extremities warm with Charcot feet; RLE with erythema over tibial surface spreading over the R knee which is mildly swollen. Now pruritic at dorsum of ankle. Urticarial lesions at proximal medial tibial area. Objective Last Vital Signs Temp 37.9 C H 01/25/22 07:30 Pulse 72 01/25/22 10:02 Resp 31 H 01/25/22 10:02 BP 92/56 L 01/25/22 10:02 Pulse Ox 96 01/25/22 10:02 Laboratory Results - last 24 hr 01/25/22 01/25/22 01/25/22 05:25 05:25 09:08 ESR 54 H Sodium 138 Potassium 3.6 Chloride 106 Carbon Dioxide 23.6 Anion Gap 8.4 BUN 21 H Creatinine 1.0 Est GFR (CKD-EPI 2020) 55.90 Glucose 105 Calcium 8.3 L Total Bilirubin 0.8 AST 188 H ALT 87 H Alkaline Phosphatase 73 C-Reactive Protein 15.04 H Total Protein 5.6 L Albumin 2.0 L
[2022-01-25] MEDS: Acetaminophen 500 MG TAB 1000 MG PO (15:54)
--- NOTE | 2022-01-25 16:23 | DI.RAD_ITS ---
Exam(s) XR PORTABLE CHEST AP EXAM: XR PORTABLE CHEST AP CLINICAL HISTORY: Fever, increased work of breathing. TECHNIQUE: COMPARISON: CR XR CHEST 2V PA LATERAL from 01/23/2022 FINDINGS: In comparison with prior examination of January 23, there appears to be increased radiodensity in the perihilar regions and right lung base in a patchy pattern suggestive of pneumonitis period IJ catheter again noted with its tip overlying right atrium. No gross pleural effusion on this frontal film. IMPRESSION: The appearance is suggestive of worsening multifocal pneumonia. RADIATION DOSE DELIVERED: Total DLP
[2022-01-25 16:25] LABS: Bilirubin Negative (Negative); Blood Moderate (Negative); Clarity Sl Cloudy (Clear); Glucose Negative (Negative); Ketones Negative (Negative); Leukocyte Esterase Negative (Negative); Nitrite Negative (Negative); Urobilinogen 0.2 EU/dL (Up TO 0.2)
[2022-01-25 16:35] LABS: Bacteria Moderate HPF (Negative); Crystals Negative HPF (Negative); Epithelial Cells Rare HPF (Negative); Mucus Trace (Negative)
[2022-01-25 16:36] LABS: C & S Indicated? Yes; Casts 10-20 Hyaline LPF (Negative)
--- NOTE | 2022-01-25 16:39 | DI.VRAD_ITS ---
PROCEDURE INFORMATION: Exam: XR Chest Exam date and time: 01/25/2022 4:00 PM Age: 81 years old Clinical indication: Fever, increased work of breathing. TECHNIQUE: Imaging protocol: Radiologic exam of the chest. Views: 1 view. COMPARISON: CR XR CHEST 2V PA LATERAL 01/23/2022 10:05 AM FINDINGS: Tubes, catheters and devices: Tip of right internal jugular catheter within the right atrium. Cardiac leads superimposed over the chest. Lungs: Compared to 01/23/2022, a few new small patches of infiltrate within the lateral right mid lung zone and the right lung base. No left lung infiltrate. Pleural spaces: No pneumothorax. No pleural fluid collection. Heart/Mediastinum: Stable cardiac silhouette. Vasculature: Calcific thoracic aorta. Bones/joints: Spinal and shoulder degenerative changes. Mild thoracic scoliosis. IMPRESSION: Compared to 01/23/2022, a few new small patches of infiltrate within the lateral right mid lung zone and the right lung base. Dictated and Authenticated by: Ramiro Weller MD. Ordering:COOPER Nunez MD
[2022-01-25] MEDS: Normal Saline 1,000 ML 80 ML IV (17:42)
[2022-01-25] MEDS: Loperamide 2 MG CAP PO (20:26)
[2022-01-25] MEDS: Levalbuterol 0.63 MG/3 ML UPD VIAL UPD (23:21)
[2022-01-26] VITALS (57 sets, daily range): BP systolic 73–112; BP diastolic 44–72; PULSE 85–97; RESP 19–36; TEMP 37.4–37.7; O2SAT 88–96
[2022-01-26] MEDS: VANCOMYCIN/WATER (PEG) 1 GM/200 ML BAG IVPB ×2 (05:36→23:22)
[2022-01-26 06:17] LABS: Abs Immature Grans 0.16 10^3/uL (0.0-0.06); Absolute Eosinophil Count 0.17 10^3/uL (0.0-0.7); Absolute Lymphocyte Count 0.97 10^3/uL (1.2-3.4); Absolute Monocyte Count 0.86 10^3/uL (0.1-0.8); Basophils % 0.7; Eosinophils % 1.4; HCT 33.9 % (36.0-46.0); HGB 10.8 g/dL (11.2-15.7); Immature Grans % 1.3; MCH 29.3 pg (27.0-33.0); MCHC 31.9 % (32.0-36.0); MCV 92 fL (80-95); Monocytes % 7.1; Neutrophils % 81.5; Platelet Count 180 10^3/uL (130-400); RBC 3.68 10^6/uL (3.93-5.22); RDW 17.1 % (11.7-14.6); RDW-SD 58.5 fL; WBC 12.18 10^3/uL (4.4-10.8)
[2022-01-26 06:19] LABS: ESR 57 mm/hr (0-30)
[2022-01-26 06:24] LABS: Absolute Basophil Count 0.09 10^3/uL (0.0-0.2); Absolute Neutrophil Count 9.93 10^3/uL (1.2-6.7)
[2022-01-26 06:37] LABS: C-Reactive Protein 13.27 mg/dL (0.0-0.3); Creatine Kinase 918 U/L (26-192)
[2022-01-26 06:53] LABS: Vancomycin, Trough 7.5 ug/mL (10.0-20.0)
[2022-01-26] MEDS: Normal Saline 500 ML 10 ML IV (10:21)
[2022-01-26] MEDS: Pantoprazole 40 MG VIAL IVP (10:22)
[2022-01-26] MEDS: CEFEPIME 2 GM in Normal Saline 100 ML IVPB ×2 (10:22→23:22)
[2022-01-26] MEDS: Calcium 600mg/Vit D 200U TAB 1 TAB PO ×2 (10:26→20:13)
[2022-01-26] MEDS: Glucosamine/Chondroitin CAP 1 CAP PO ×2 (10:26→20:13)
[2022-01-26] MEDS: Ferrous Sulfate 325 MG TAB PO (10:26)
[2022-01-26] MEDS: Aspirin 81 MG CHEW PO (10:26)
[2022-01-26] MEDS: Multivitamin TAB 1 TAB PO (10:26)
[2022-01-26] MEDS: Normal Saline Flush 10 ML SYR IVP (10:27)
[2022-01-26] MEDS: Memantine 5 MG TAB PO ×2 (10:27→20:29)
[2022-01-26] MEDS: Heparin 5,000 UNITS/ML VIAL 5000 UNITS SC ×2 (10:27→20:13)
--- NOTE | 2022-01-26 15:05 | W.PM.PROGNOT ---
Date of Service Date of service: 01/26/22 Time of Service: 15:10 Assessment and Plan Assessment and plan (1) Diarrhea: Status: Acute Assessment and plan: C. Diff neg. No further loose stools. CT abd/pelvis w/o acute process noted. + cholelithiasis. (2) Transaminitis: Status: Acute Assessment and plan: In setting of rhabdomyolysis, septic shock (shock liver?), diarrhea. Monitor LFTs. Trending down modestly. Imaging as above. Repeat lab in am (3) Rhabdomyolysis: Status: Acute Assessment and plan: Most likely d/t immobility. CPK continues to improve. Monitor. CT of RLE w/o acute findings. (4) Sepsis syndrome: Status: Acute Assessment and plan: Now corrected. (5) Hypovolemic shock: Status: Acute Assessment and plan: Now off norepinephrine. Given 2L hydration on 01/24 and has received several smaller, 250ml NS boluses since then for low BP and diminished urine outpt. Poor intake; encouraging her to drink/eat more. (6) Cellulitis of leg, right: Status: Acute Assessment and plan: Cont. Vancomycin. Changed from Zosyn to Cefepime.. Area of involvement has improved. (7) Respiratory failure with hypoxia: Status: Acute Assessment and plan: Pulmonary/critical care consulted/ Dr Araiza. Her POCUS exam on 01/24 showed. she was dry and given the history of her diarrhea, EDUARDO and rhabdo, she likely was experiencing hypovolemic shock from dehydration. Given 2L IV fluids then has received several 250ml boluses. Now on 1.5L NC with O2 saturations in the low to mid 90's. (8) Acute kidney injury: Status: Acute Assessment and plan: In setting of hypovolemic shock but also rhabdomyolysis. With hypokalemia. Repleted potassium. Creatinine now normalized at 1.0. Monitor. 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 Consider 2 view of knee if any worsening noted. (10) Toxic metabolic encephalopathy: Status: Acute Assessment and plan: Resolved. The patient does have a h/o Alzheimers. Continue treatment of infection. (11) Pulmonary edema: Status: Acute Assessment and plan: Diuresed, but then required fluid resuscitation. She has mild increase work of breathing but denies feeling SOB. Soft expiratory wheezes. Txd with prn albuterol nebs. (12) Hypokalemia: Status: Acute Assessment and plan: Repleted (13) DVT prophylaxis: Status: Acute Assessment and plan: SC heparin to start tonight (14) Discharge planning issues: Status: Acute Assessment and plan: DNR/DNI Keep in ICU. C/s palliative care. Subjective Subjective Patient reports: no new complaints and tolerating a regular diet (Conts to have poor appetite.); denies nausea or vomiting Interval history since last seen: She reports less pain in the area of cellulitis of her LE. Exam Narrative Exam Narrative: General: Pleasant elderly female sitting up in bed. Cooperative. Appears fatigued. HEENT: Sclera clear, MMM Heart:RRR, no murmur Lungs: Soft, coarse anterior breath sounds with expiratory wheeze. Mild increased work of breathing. Abdominal breathing. Abdomen: soft, nontender, nondistended. Protuberant. Extremities: B extremities warm with Charcot feet; RLE with decreased area of erythema over tibial surface up to near the R knee which is mildly swollen. Skin is flaking over area of involvement at anterior ankle. Objective Last Vital Signs Temp 37.6 C H 01/26/22 08:15 Pulse 86 01/26/22 12:01 Resp 29 H 01/26/22 12:01 BP 99/44 L 01/26/22 12:01 Pulse Ox 91 L 01/26/22 12:01 Laboratory Results - last 24 hr 01/25/22 01/26/22 01/26/22 16:12 05:25 05:25 WBC 12.18 H RBC 3.68 L Hgb 10.8 L Hct 33.9 L MCV 92 MCH 29.3 MCHC 31.9 L RDW 17.1 H Plt Count 180 MPV 11.0 Immature Gran % 1.3 Neutrophils % 81.5 Lymphocytes % 8.0 Monocytes % 7.1 Eosinophils % 1.4 Basophils % 0.7 Nucleated RBC % 0.0 Absolute Neutrophils 9.93 H Absolute Lymphocytes 0.97 L Absolute Monocytes 0.86 H Absolute Eosinophils 0.17 Absolute Basophils 0.09 ESR Creatine Kinase 918 H C-Reactive Protein 13.27 H Urine Color Yellow Urine Clarity Sl Cloudy Urine pH 6.0 Ur Specific [place] 1.020 Urine Protein 30 H Urine Ketones Negative Urine Blood Moderate H Urine Nitrite Negative Urine Bilirubin Negative Urine Urobilinogen 0.2 Ur Leukocyte Esterase Negative Urine RBC 10-20 H Urine WBC 3-5 Ur Epithelial Cells Rare Urine Crystals Negative Urine Bacteria Moderate Urine Casts 10-20 Hyaline Urine Mucus Trace Ur Culture Indicated? Yes Urine Glucose Negative Vancomycin Trough 01/26/22 01/26/22 05:25 05:25 WBC RBC Hgb Hct MCV MCH MCHC RDW Plt Count MPV Immature Gran % Neutrophils % Lymphocytes % Monocytes % Eosinophils % Basophils % Nucleated RBC % Absolute Neutrophils Absolute Lymphocytes Absolute Monocytes Absolute Eosinophils Absolute Basophils ESR 57 H Creatine Kinase C-Reactive Protein Urine Color Urine Clarity Urine pH Ur Specific [place] Urine Protein Urine Ketones Urine Blood Urine Nitrite Urine Bilirubin Urine Urobilinogen Ur Leukocyte Esterase Urine RBC Urine WBC Ur Epithelial Cells Urine Crystals Urine Bacteria Urine Casts Urine Mucus Ur Culture Indicated? Urine Glucose Vancomycin Trough 7.5 L
[2022-01-26] MEDS: Loperamide 2 MG CAP PO ×2 (15:21→20:13)
[2022-01-26 17:20] LABS: Streptococcus Pneumoniae Ag, U Negative (Negative)
[2022-01-27] VITALS (87 sets, daily range): BP systolic 85–128; BP diastolic 42–83; PULSE 78–123; RESP 4–43; TEMP 37.4–38.3; O2SAT 89–97
[2022-01-27] MEDS: Haloperidol 1 MG TAB 2 MG PO (01:42)
[2022-01-27] MEDS: Levalbuterol 0.63 MG/3 ML UPD VIAL UPD ×3 (04:18→20:11)
[2022-01-27] MEDS: Ketorolac 15 MG/ML VIAL IVP (04:19)
[2022-01-27 06:35] LABS: Absolute Lymphocyte Count 1.78 10^3/uL (1.2-3.4); Absolute Neutrophil Count 8.85 10^3/uL (1.2-6.7); Basophils % 0.7; Eosinophils % 3.3; HCT 35.6 % (36.0-46.0); HGB 11.6 g/dL (11.2-15.7); Immature Grans % 1.6; Lymphocytes % 14.5; MCH 29.3 pg (27.0-33.0); MCHC 32.6 % (32.0-36.0); MCV 90 fL (80-95); MPV 11.3 fL (8.0-11.0); Monocytes % 7.7; Neutrophils % 72.2; Platelet Count 226 10^3/uL (130-400); RBC 3.96 10^6/uL (3.93-5.22); RDW 16.9 % (11.7-14.6); RDW-SD 56.9 fL; WBC 12.26 10^3/uL (4.4-10.8)
[2022-01-27 06:38] LABS: ESR 80 mm/hr (0-30)
[2022-01-27 06:42] LABS: Absolute Basophil Count 0.09 10^3/uL (0.0-0.2); Absolute Monocyte Count 0.94 10^3/uL (0.1-0.8)
[2022-01-27 06:59] LABS: C-Reactive Protein 12.83 mg/dL (0.0-0.3)
[2022-01-27 07:01] LABS: ALT 96 U/L (14-59); AST 111 U/L (15-37); Alkaline Phosphatase 105 U/L (46-116); Anion Gap 9.7 mmol/L (3-11); BUN 13 mg/dL (7-18); Bilirubin, Total 0.9 mg/dL (0.2-1.0); CO2 24.3 mmol/L (21.0-32.0); CREATININE 0.8 mg/dL (0.55-1.02); Calcium 8.8 mg/dL (8.5-10.1); Chloride 106 mmol/L (98-107); Estimated GFR 73.06 (mL/min/1.73m2); Glucose 118 mg/dL (74-106); Sodium 140 mmol/L (136-145); Total Protein 6.2 g/dL (6.4-8.2)
[2022-01-27] MEDS: POTASSIUM CHLORIDE 20 MEQ/100 ML BAG 50 MEQ IVPB (07:52)
[2022-01-27] MEDS: Normal Saline Flush 10 ML SYR IVP ×3 (07:52→20:00)
[2022-01-27] MEDS: Pantoprazole 40 MG VIAL IVP (09:01)
[2022-01-27] MEDS: Heparin 5,000 UNITS/ML VIAL 5000 UNITS SC ×2 (09:02→20:00)
[2022-01-27] MEDS: Ferrous Sulfate 325 MG TAB PO (09:03)
[2022-01-27] MEDS: Glucosamine/Chondroitin CAP 1 CAP PO ×2 (09:03→20:01)
[2022-01-27] MEDS: Memantine 5 MG TAB PO ×2 (09:03→20:01)
[2022-01-27] MEDS: Potassium Chloride 20 MEQ TABCR PO (09:03)
[2022-01-27] MEDS: Calcium 600mg/Vit D 200U TAB 1 TAB PO ×2 (09:03→20:01)
[2022-01-27] MEDS: Aspirin 81 MG CHEW PO (09:03)
[2022-01-27] MEDS: Multivitamin TAB 1 TAB PO (09:03)
--- NOTE | 2022-01-27 09:05 | IN_ITS ---
Date of service: 01/27/22 Time of Service: 09:05 PT Notes Visit Reasons: Sepsis Syndrome, Dehydration, Cellulitis, PNA Physical Therapy Inpatient Initial Evaluation Date: 01/27/2022 Referring Doctor: Enrique Guerrero MD PT Orders: PT CONSULT: Eval/treat Precautions: Fall. Standard. Activity as tolerated. Patient Profile/Admitting Diagnosis: Margaux is an 81-year-old female who presented to the ED on 01/22/2022 due to increasing confusion. She is diagnosed with sepsis syndrome, cellulitis of right leg, pneumonia, acute dehydration, diarrhea, transaminitis, rhabdomyolysis, hypovolemic shock, respiratory failure with hypoxia, acute kidney injury, and pulmonary edema. PMHX: All Active Problems? Septic shock (Acute) Sepsis syndrome (Acute) Acute dehydration (Acute) Multiple fractures of ribs of right side (Acute) Cellulitis of leg, right (Acute) Pneumonia (Acute) Acute kidney injury (Acute) Hyperlipidemia (Acute) ZHANG (dyspnea on exertion) (Acute) Acquired bilateral flat feet (Acute) Left rotator cuff tear arthropathy (Chronic) 80mg Depo-Medrol injection: 08/08/2020, 12/12/2020, 03/27/2021 Left shoulder pain (Acute) Facial basal cell cancer (Acute) Medical History? Anemia ASCENDING COLON AVM Basal cell carcinoma of nose BREAST CANCER LEFT Diverticulosis Edema LIMB Foot deformity Hallux valgus Heart murmur SYSTOLIC Heartburn Hip pain, left Macular degeneration Mild memory disturbance Obesity Osteoarthritis of both hands Osteopenia Skin lesion TUBULAR ADENOMAS Uterine prolapse CONGENITAL BODY ASYMMETRY Surgical History? Abdominal hysterectomy (~10/2011) PARTIAL Breast, Lumpectomy (12/09/09) LEFT Colonoscopy - IV Sedation (11/19/09) Hx of total knee replacement BILATERAL Recurrent major depression in partial remission (11/19/09) ASCENDING COLON AVM Social History/Home Situation: Lives alone in a praivte home in [place], [place]. Plans to be at son's home in [place] in the coming week or so. Independent inside home without AD. Occasionally uses a SPC outdoors. Has no orthopedic shoes for bilateral foot deformity. Equipment Owned/DME: SPC, 4WW Subjective: Denies pain, headache, and dizziness throughput session. States that the redness and the swelling on her R leg have diminished. Reports minimal pain with weight bearing. Objective: General Observation: Supine in bed. Central line in place. Vila catheter in place. Erythema and swelling in R leg. Bilateral foot deformity noted. Punctured blister on the R medial distal thrid of the leg, Nurse Shannan informed Mental Status: Alert and oriented as to person and place. Able to follow single- tep commands. Pain: Minimal pain in R leg Vital Signs: WNL as closley monitored via tele ROM: Right Upper Extremity: Shoulder Flexion allows up to 90 degrees. Shoulder abduction allows up to 90 degrees. Elbow flexion WFL. Wrist flexion WFL. Functional opening and closing of hand WFL. Left Upper Extremity: Shoulder Flexion allows up to 90 degrees. Shoulder abduction allows up to 90 degrees. Elbow flexion WFL. Wrist flexion WFL. Functional opening and closing of hand WFL. Right Lower Extremity: Hip flexion WFL. Hip abduction WFL. Knee flexion 20 degrees to 90 degrees. Knee extension -20 degrees. Ankle dorsiflexion absent. Ankle plantarflexion about 10 degrees. Left Lower Extremity: Hip flexion WFL. Hip abduction WFL. Knee flexion 20 degrees to 90 degrees. Knee extension -20 degrees. Ankle dorsiflexion absent. Ankle plantarflexion about 10 degrees. Strength: Right Upper Extremity: Shoulder flexors 3-/5. Shoulder abductors 3-/5. Elbow flexors 4-/5. Elbow extensors 4-/5. Landing Man strong. Left Upper Extremity: Shoulder flexors 3-/5. Shoulder abductors 3-/5. Elbow flexors 4-/5. Elbow extensors 4-/5. Landing Man strong. Right Lower Extremity: Hip flexors 4-/5. Hip abductors 4-/5. Knee flexors 3-/5. Knee extensors 3-/5. Ankle dorsiflexors 3-/5. Ankle plantarflexors 3-/5. Left Lower Extremity: Hip flexors 4-/5. Hip abductors 4-/5. Knee flexors 3-/5. Knee extensors 3-/5. Ankle dorsiflexors 3-/5. Ankle plantarflexors 3-/5. Bed Mobility/Transfers: Supine to sit minimal assist with HOB at 30 degrees Sit to stand minimal assist Stand to sit standby assist with FWW Bed to bedside commode standby assist with FWW. Toileting assist provided before and after bowel movement Bedside commode to bed standby assist with FWW Bed to reclining chair with standby assist with FWW Reclining chair to bed with standby assist with FWW Gait: Instructed patient with level surface ambulation of 8 feet + 8 feet requiring stand by assist assist. Mabel decreased. Step height decreased. Step length decreased. No DF in B legs. No report of increased pain. Balance: Static Sitting: Good Dynamic Sitting: Fair Static Standing: Fair Dynamic Standing: Fair Special Tests: Mobility Limitations Standardized Measure [facility] AM-PAC 6 clicks Basic Mobility Inpatient Short Form: Raw Score: 20 CMS Score: 36% deficit Informed Consent/Education: Patient was instructed in purpose of PT consult and plan of care. Agreeable to proceed with established PT POC to achieve personal goals. Assessment: Patient presents with clinical signs and symptoms consistent with current/admitting diagnoses that have resulted to mobility limitations, gait instability, generalized weakness, and overall ADL decline as demonstrated by the following impairment level findings: 1. Decreased strength to B UE/LE major muscle groups 2. Impaired sitting/standing balance 3. Impaired activity tolerance 4. Limitation of joint range of motion in B shoulder, B hips, and B knees (chron EF Domonique or waiting for ic) 5. Erythema to R leg due to cellulitis 6. Swelling in R leg due to cellulitis 7. Chronic bilateral foot deformity Impairments are contributing to the following functional limitations: 1. Decline in bed mobility skills 2. Decline in transfer skills 3. Difficulty with ambulation without assistive device and physical assistance 4. Increased completion time for mobility ADL performance 5. Increased risk for falls 6. Difficulty with managing steps alone safely Patient is assessed as a 65205 moderate complexity based on the following: History: 81-year-old female with past medical history as indicated above Examination: Demonstrable impairment in strength, balance, and mobility level with underlying impairments and functional limitations as exhibited above as well as deficit score of 36% utilizing the [facility] Mobility Inpatient Short Form Presentation: Evolving Decision Makin moderate complexity Goals: Goals X1 week 1. Supine-Sit independent 2. Sit-Supine independent 3. Sit-Stand independent 4. Stand-Sit independent with FWW 5. Bed-Chair independent with FWW 6. Chair-Bed independent with FWW 7. Independent gait on level surface with use of FWW for at least 100 feet without report of pain nor dyspnea 8. Independent stair negotiation while holding onto B rails for at least 3 steps without report of pain nor dyspnea 9. Independent with home exercise program 10. Good static and dynamic standing balance/tolerance Plan of Care/Treatment Plan: 1-2x/day, 7 days/week x 1 week. Plan of care has been reviewed with the REGISTERED NURSE MATERNITY providing the service under Physical Therapy direction. Initiate Physical Therapy intervention for pain management as needed, strengthening, bed mobility, transfers, gait, stairs, balance training, and use of assistive device. DISCHARGE RECOMMENDATIONS: [] Home with no services [] [X] Home with services. Patient will benefit from home health PT services in order to progress mobility level using least restrictive assistive ambulatory device, assess home safety, identify additional equipment needs, and establish a functional maintenance program that will increase ability of patient to remain at home. [] Home with outpatient PT [] [] SNF for continued rehabilitation [] [] [facility] [] [] SNF versus LTC based on ability to participate and progress [] TREATMENT CODE/TIME: 74766 x 20 minutes beginning at 9:05 AM. Thank you for the opportunity to participate in the care of this patient. Andreina Busch PT, DPT, CLT [facility] [place], [place]
--- NOTE | 2022-01-27 10:20 | W.PULMCC ---
General Date of Service Date of service: 01/27/22 Time of Service: 08:00 Reason for Admission to ICU: Shock Cellulitis Assessment and Plan Assessment and plan (1) Diarrhea: Status: Acute (2) Transaminitis: Status: Acute (3) Rhabdomyolysis: Status: Acute (4) Sepsis syndrome: Status: Acute (5) Hypovolemic shock: Status: Acute (6) Cellulitis of leg, right: Status: Acute (7) Acute kidney injury: Status: Acute (8) Respiratory failure with hypoxia: Status: Acute Assessment and plan: This is an 81 yo woman with cellulitis, recent significant volume loss from diarrhea, rhabdomyolysis and an EDUARDO admitted to the ICU. She was receiving some fluid but was also being diuresed. She was on Levophed for suspected septic shock, although this is now resolved. It is highly unlikely that she is in septic shock from the cellulitis. Typically cellulitis does not cause septic shock. On POCUS she was dry and given the history of her diarrhea, EDUARDO and rhabdo, she likely experienced hypovolemic shock from dehydration. treating the excessive GI losses and keeping up with these losses by IVF boluses as needed is recommended. She is stable to transfer to med/surg. Recommendations Pulmonary: Acute hypoxic respiratory failure - supplemental O2 for sats >90% - incentive spirometry - prn albuterol Cardiac: Hypovolemic Shock - resolved Renal: EDUARDO due to rhabdo - improved I&O: Intake & Output 01/24/22 01/25/22 01/26/22 01/27/22 23:59 23:59 23:59 23:59 Intake Total 4376.543 / 4376.543 1387.7 / 1387.7 1122.217 / 1122.217 460 / 460 Output Total 1448 / 1448 1201 / 1201 1660 / 1660 230 / 230 Balance 2928.543 / 2928.543 186.7 / 186.7 -537.783 / -537.783 230 / 230 Weight 85.6 kg 90.8 kg 89.1 kg Daily Fluid Goal:: positive today, even moving forward GI Nutrition: Transaminitis - improving - due to shock Diarrhea - on Immodium - replace GI losses with IVF boluses to maintain even fluid balance as needed Date of Last Bowel Movement: 01/26/22 Infectious Disease: Cellulitis with sepsis - continue vanc and cefepime Hematologic: No acute concern Neurologic: No acute concerns Endocrine: No acute concerns Lines: Right CVC - recommend midline placement and removal today Prophylaxis: heparin Protonix Code Status: Resuscitation Status DNR/DNI Subjective Critical and life-threatening events over the past 24 hours: Margaux has remained off vasopressors all weekend and her cellulitis seems to be improving. She is confused and although has a history of dementia, it is likely that she also has delirium as well. She tells me today that she is feeling well and offers no complaints. Exam Narrative Exam Narrative: POCUS 01/24/22: All views visualized. Good views. Normal appearing LVEF. RV slightly dilated, but seems to function normally. IVC is small and underfilled. Gen: NAD, normal respiratory effort, well-nourished HENT: PERRL, nasal turbinates normal without erythema or inflammation, moist oral mucosa, Mallampati 2, No LAD or JVD Chest: No respiratory distress, normal appearance of chest, clear to auscultation bilaterally, no crackles or wheezes, normal inspiratory effort Heart: regular rate and rhythym, no murmurs, rubs or gallops Abdomen: Non-distended, soft, non tender Extremities: Right leg edema and redness, improved from my last assessment. Neuro: AAOx2 , non focal Psych: cooperative, appropriate mental affect Most Recent VS/Results Last Vital Signs Temp 37.5 C 01/27/22 00:30 Pulse 94 H 01/26/22 21:01 Resp 25 H 01/26/22 21:01 BP 102/49 L 01/26/22 21:01 Pulse Ox 91 L 01/26/22 21:01 Laboratory Results - last 24 hr 01/23/22 01/27/22 01/27/22 12:29 05:30 05:30 WBC RBC Hgb Hct MCV MCH MCHC RDW Plt Count MPV Immature Gran % Neutrophils % Lymphocytes % Monocytes % Eosinophils % Basophils % Nucleated RBC % Absolute Neutrophils Absolute Lymphocytes Absolute Monocytes Absolute Eosinophils Absolute Basophils ESR Sodium 140 Potassium 3.0 L Chloride 106 Carbon Dioxide 24.3 Anion Gap 9.7 BUN 13 Creatinine 0.8 Est GFR (CKD-EPI 2020) 73.06 Glucose 118 H Calcium 8.8 Total Bilirubin 0.9 AST 111 H ALT 96 H Alkaline Phosphatase 105 C-Reactive Protein 12.83 H Total Protein 6.2 L Albumin 2.0 L Ur Strep pneumoniae Ag Negative 01/27/22 01/27/22 05:30 05:30 WBC 12.26 H RBC 3.96 Hgb 11.6 Hct 35.6 L MCV 90 MCH 29.3 MCHC 32.6 RDW 16.9 H Plt Count 226 MPV 11.3 H Immature Gran % 1.6 Neutrophils % 72.2 Lymphocytes % 14.5 Monocytes % 7.7 Eosinophils % 3.3 Basophils % 0.7 Nucleated RBC % 0.0 Absolute Neutrophils 8.85 H Absolute Lymphocytes 1.78 Absolute Monocytes 0.94 H Absolute Eosinophils 0.40 Absolute Basophils 0.09 ESR 80 H Sodium Potassium Chloride Carbon Dioxide Anion Gap BUN Creatinine Est GFR (CKD-EPI 2020) Glucose Calcium Total Bilirubin AST ALT Alkaline Phosphatase C-Reactive Protein Total Protein Albumin Ur Strep pneumoniae Ag Review of Systems All systems reviewed & are unremarkable except as noted in HPI and below Time spent with patient Time spent in Critical Care: 35 Time spent in Critical care included: Chart review, Documenting critically ill care, Time at immediate bedside and Discussing critically ill care with other medical staff Multi-Disciplinary Checklist Lines/Tubes CENTRAL LINE: yes, Central Line Day#: 4 ARTERIAL LINE: no [place]ING[place]AM: yes, [place] Day#: 4 ENDOTRACHEAL TUBE: no ICU Maintenance GLUCOSE 140-180mg/dL: yes NUTRITION AT GOAL: yes PRESSURE ULCER: no RESTRAINTS: no ANTIBIOTICS(if yes, consider Stewardship): Yes Social Issues FAMILY UPDATED: no, Reason/Intervention: defer to hospitalist PT/OT: yes GOALS/DISPOSITION/CORE MICROARCHITECT: yes CODE STATUS: DNR/DNI Prophylaxis DVT PROPHYLAXIS: yes GI PROPHYLAXIS: yes, Indication: will discontinue today
[2022-01-27] MEDS: CEFEPIME 2 GM in Normal Saline 100 ML IVPB ×2 (10:46→21:36)
--- NOTE | 2022-01-27 15:24 | W.PM.PROGNOT ---
Date of Service Date of service: 01/27/22 Time of Service: 15:24 Assessment and Plan Assessment and plan (1) Diarrhea: Status: Acute Assessment and plan: C. Diff neg. No further loose stools. CT abd/pelvis w/o acute process noted. + cholelithiasis. (2) Transaminitis: Status: Acute Assessment and plan: In setting of rhabdomyolysis, septic shock (shock liver?), diarrhea. Monitor LFTs. Trending down modestly. Imaging as above. Repeat lab in am (3) Rhabdomyolysis: Status: Acute Assessment and plan: Most likely d/t immobility. CPK continues to improve. Monitor. CT of RLE w/o acute findings. (4) Sepsis syndrome: Status: Acute Assessment and plan: Now corrected. (5) Hypovolemic shock: Status: Acute Assessment and plan: Now off norepinephrine. Given 2L hydration on 01/24 and has received several smaller, 250ml NS boluses since then for low BP and diminished urine outpt. Poor intake; encouraging her to drink/eat more. (6) Cellulitis of leg, right: Status: Acute Assessment and plan: Cont. Vancomycin. Changed from Zosyn to Cefepime.. Area of involvement has improved. Will change to oral antibiotic when discharged; yet to be determined (7) Respiratory failure with hypoxia: Status: Acute Assessment and plan: Pulmonary/critical care consulted/ Dr Araiza. Her POCUS exam on 01/24 showed. she was dry and given the history of her diarrhea, EDUARDO and rhabdo, she likely was experiencing hypovolemic shock from dehydration. Given 2L IV fluids then has received several 250ml boluses. Now on 1.5L NC with O2 saturations in the low to mid 90's. Being administered prn albuterol. Encouraging IS use. + pneumonia contributing as well. (8) Acute kidney injury: Status: Acute Assessment and plan: In setting of hypovolemic shock but also rhabdomyolysis. With hypokalemia. Repleted potassium. Creatinine now normalized at 1.0. Monitor. 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 Consider 2 view of knee if any worsening noted. (10) Toxic metabolic encephalopathy: Status: Acute Assessment and plan: Resolved. The patient does have a h/o Alzheimers. Continue treatment of infection. (11) Pulmonary edema: Status: Acute Assessment and plan: Diuresed, but then required fluid resuscitation. She has mild increase work of breathing but denies feeling SOB. Soft expiratory wheezes. Txd with prn albuterol nebs. (12) Hypokalemia: Status: Acute Assessment and plan: Repleted (13) DVT prophylaxis: Status: Acute Assessment and plan: SC heparin to start tonight (14) Discharge planning issues: Status: Acute Assessment and plan: DNR/DNI Keep in ICU. C/s palliative care. (15) Alzheimer disease: Status: Chronic Assessment and plan: Confusion more pronounced today. No behavioral issues. Cont memantine. (16) Pneumonia: Status: Acute Assessment and plan: Multifocal pneumonia. On cefepime and Vancomycin, initially only for cellulitis. WBC count remaining mildly elevated at 12 for 3 days. Stable. Subjective Subjective Patient reports: feels better and afebrile; denies nausea or vomiting Interval history since last seen: Patient is much more interactive today. Affect bright. Occasional cough Exam Narrative Exam Narrative: General: Pleasant elderly female sitting up in bed. Cooperative. HEENT: Sclera clear, MMM Heart:RRR, no murmur Lungs: Lungs clear. Shallow breathing. Abdomen: soft, nontender, nondistended. Protuberant. Extremities: B extremities warm with Charcot feet; RLE with decreased area of erythema over tibial surface up to near the R knee which is mildly swollen.Erythema is less intense red. Skin is flaking over area of involvement at anterior ankle. Objective Last Vital Signs Temp 37.4 C 01/27/22 08:00 Pulse 101 H 01/27/22 08:01 Resp 22 01/27/22 15:00 BP 128/70 01/27/22 08:01 Pulse Ox 94 01/27/22 08:00 Laboratory Results - last 24 hr 01/23/22 01/27/22 01/27/22 12:29 05:30 05:30 WBC RBC Hgb Hct MCV MCH MCHC RDW Plt Count MPV Immature Gran % Neutrophils % Lymphocytes % Monocytes % Eosinophils % Basophils % Nucleated RBC % Absolute Neutrophils Absolute Lymphocytes Absolute Monocytes Absolute Eosinophils Absolute Basophils ESR Sodium 140 Potassium 3.0 L Chloride 106 Carbon Dioxide 24.3 Anion Gap 9.7 BUN 13 Creatinine 0.8 Est GFR (CKD-EPI 2020) 73.06 Glucose 118 H Calcium 8.8 Total Bilirubin 0.9 AST 111 H ALT 96 H Alkaline Phosphatase 105 C-Reactive Protein 12.83 H Total Protein 6.2 L Albumin 2.0 L Ur Strep pneumoniae Ag Negative 01/27/22 01/27/22 05:30 05:30 WBC 12.26 H RBC 3.96 Hgb 11.6 Hct 35.6 L MCV 90 MCH 29.3 MCHC 32.6 RDW 16.9 H Plt Count 226 MPV 11.3 H Immature Gran % 1.6 Neutrophils % 72.2 Lymphocytes % 14.5 Monocytes % 7.7 Eosinophils % 3.3 Basophils % 0.7 Nucleated RBC % 0.0 Absolute Neutrophils 8.85 H Absolute Lymphocytes 1.78 Absolute Monocytes 0.94 H Absolute Eosinophils 0.40 Absolute Basophils 0.09 ESR 80 H Sodium Potassium Chloride Carbon Dioxide Anion Gap BUN Creatinine Est GFR (CKD-EPI 2020) Glucose Calcium Total Bilirubin AST ALT Alkaline Phosphatase C-Reactive Protein Total Protein Albumin Ur Strep pneumoniae Ag
[2022-01-27] MEDS: VANCOMYCIN/WATER (PEG) 1 GM/200 ML BAG IVPB (15:32)
--- NOTE | 2022-01-27 16:23 | PDOC.CMPRO ---
- If Service Date Differs Date of service: 01/27/22 Time of Service: 16:23 Care Management Progress Note S/O: Margaux remains in the ICU, no change to overall plan. CM continues to support discharge planning. A: 81 year old female admitted to [facility] 01/22/22 P: Margaux remains in the ICU at this time, with multiple medical issues being treated. At this point, the family plans on Margaux relocating to [place] to stay with her son, Alvaro and his . CM attempted to coordinate home PT in [facility]; VNA will not allow local PCP to follow orders, Margaux is not established with PCP in [facility], CM reviewed need with [id number] who reported she would follow up with local PCPs. She will likely need to discharge and establish care in [place] prior to having home health. CM continues to follow.
[2022-01-27] MEDS: guaiFENesin 600 MG TABCR PO (20:01)
[2022-01-27] MEDS: Acetaminophen 500 MG TAB 1000 MG PO (20:01)
[2022-01-27] MEDS: Nystatin POWDER 60 GM JAR TP (20:17)
[2022-01-27] MEDS: QUEtiapine 25 MG TAB 50 MG PO (22:44)
[2022-01-28] VITALS (11 sets, daily range): BP systolic 100–129; BP diastolic 63–69; PULSE 90–105; RESP 4–37; TEMP 37.4–38.6; O2SAT 91–95
[2022-01-28 05:47] LABS: HCT 36.8 % (36.0-46.0); HGB 11.6 g/dL (11.2-15.7); MCH 29.3 pg (27.0-33.0); MCHC 31.5 % (32.0-36.0); MCV 93 fL (80-95); MPV 11.2 fL (8.0-11.0); Platelet Count 282 10^3/uL (130-400); RBC 3.96 10^6/uL (3.93-5.22); RDW 16.6 % (11.7-14.6); RDW-SD 57.5 fL; WBC 11.55 10^3/uL (4.4-10.8)
[2022-01-28] MEDS: Levalbuterol 0.63 MG/3 ML UPD VIAL UPD ×2 (06:00→13:58)
[2022-01-28] MEDS: VANCOMYCIN/WATER (PEG) 1 GM/200 ML BAG IVPB ×2 (06:02→21:27)
[2022-01-28 06:05] LABS: ALT 101 U/L (14-59); AST 97 U/L (15-37); Alkaline Phosphatase 101 U/L (46-116); Anion Gap 5.7 mmol/L (3-11); BUN 16 mg/dL (7-18); Bilirubin, Total 0.8 mg/dL (0.2-1.0); CO2 27.3 mmol/L (21.0-32.0); CREATININE 0.9 mg/dL (0.55-1.02); Calcium 8.9 mg/dL (8.5-10.1); Chloride 107 mmol/L (98-107); Estimated GFR 63.43 (mL/min/1.73m2); Glucose 100 mg/dL (74-106); Potassium 3.9 mmol/L (3.5-5.1); Sodium 140 mmol/L (136-145); Total Protein 6.3 g/dL (6.4-8.2)
[2022-01-28 06:25] LABS: Vancomycin, Trough 13.5 ug/mL (10.0-20.0)
[2022-01-28] MEDS: Acetaminophen 500 MG TAB 1000 MG PO ×2 (07:39→13:58)
[2022-01-28] MEDS: Heparin 5,000 UNITS/ML VIAL 5000 UNITS SC ×2 (09:48→20:35)
--- NOTE | 2022-01-28 10:30 | W.NUTCONSULT ---
Date of service: 01/28/22 Time of Service: 10:30 Nutritional Consult ASSESSMENT: Margaux with hx of Alzheimers disease, PNA, dehydration and cellulitis. Has had poor po intake since admit on 01/24/22. BMI indicates class 2 obesity. Will supplement po intake with ensure plus BID. Weight has remained stable since admit. Will continue to follow. NUTRITIONAL DIAGNOSIS: moderate malnutrition with extended period of time with inadequtae macronutrient intake due to confusion/lethargy INTERVENTION: continue to offer meal preferences, supplement with ensure plus BID MONITORING AND EVALUATION: weight, po intake, labs Time Spent in Nutritional Counseling and Treatment: 0
[2022-01-28] MEDS: CEFEPIME 2 GM in Normal Saline 100 ML IVPB ×2 (10:57→20:35)
[2022-01-28 11:10] LABS: COVID-19 PCR Negative (Negative); Influenza A PCR Negative (Negative); Influenza B PCR Negative (Negative); RSV PCR Negative (Negative)
[2022-01-28 11:12] LABS: Source Nasopharynx
--- NOTE | 2022-01-28 14:23 | NUR.NOTE ---
Nursing Note: Family member rang call griffith to report patient had began coughing very hard and having difficulty breathing. Primary RN was in room with [employer]ER at this time. Oxygen was checked and patient was at 79% on room air. 2L NC applied, patient was then instructed to cough and use accapella to clear out secretions in throat. Patient was able to clear out secretions x2. Oxygen was still reading mid to low 80's so patient breathing mostly through mouth, oxymask was placed at this time. Patient is now 95% on 3L/min oxymask. Nursing Note:
--- NOTE | 2022-01-28 14:37 | W.PM.PROGNOT ---
Date of Service Date of service: 01/28/22 Time of Service: 14:47 Assessment and Plan Assessment and plan (1) Diarrhea: Status: Acute Assessment and plan: C. Diff neg. Stools had decreased in freq. but have increased. Not watery. Now likely related to antibiotics. CT abd/pelvis w/o acute process noted. + cholelithiasis. (2) Transaminitis: Status: Acute Assessment and plan: In setting of rhabdomyolysis, septic shock (shock liver?), diarrhea. Monitor LFTs. Trending down modestly. Imaging as above. Repeat lab in am (3) Rhabdomyolysis: Status: Acute Assessment and plan: Most likely d/t immobility. CPK continues to improve. Monitor. CT of RLE w/o acute findings. (4) Sepsis syndrome: Status: Acute Assessment and plan: Now corrected. (5) Hypovolemic shock: Status: Acute Assessment and plan: Now off norepinephrine. Given 2L hydration on 01/24 and has received several smaller, 250ml NS boluses since then for low BP and diminished urine outpt. Poor intake; encouraging her to drink/eat more. (6) Cellulitis of leg, right: Status: Acute Assessment and plan: Cont. Vancomycin. Changed from Zosyn to Cefepime.. Area of involvement has improved. Edema of the area much improved. Will change to oral antibiotic when discharged; yet to be determined (7) Respiratory failure with hypoxia: Status: Acute Assessment and plan: Pulmonary/critical care consulted/ Dr Araiza. Her POCUS exam on 01/24 showed. she was dry and given the history of her diarrhea, EDUARDO and rhabdo, she likely was experiencing hypovolemic shock from dehydration. Given 2L IV fluids then has received several 250ml boluses. Off supplemental O2 this AM. Being administered prn albuterol. Encouraging IS use. + pneumonia contributing as well. (8) Acute kidney injury: Status: Acute Assessment and plan: In setting of hypovolemic shock but also rhabdomyolysis. With hypokalemia. Repleted potassium. Creatinine now normalized at 0.9. Monitor. 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 Consider 2 view of knee if any worsening noted. (10) Toxic metabolic encephalopathy: Status: Acute Assessment and plan: Resolved. The patient does have a h/o Alzheimers. Continue treatment of infection. (11) Hypokalemia: Status: Acute Assessment and plan: Repleted (12) DVT prophylaxis: Status: Acute Assessment and plan: SC heparin to start tonight (13) Discharge planning issues: Status: Acute Assessment and plan: DNR/DNI Keep in ICU. C/s palliative care. Her son plans to take her home with him to [place] when discharged. (14) Alzheimer disease: Status: Chronic Assessment and plan: Confusion more pronounced today. No combative behaviors. Was given seroquel last PM for sleep. She subsequently slept most of this AM. Will d/c. Cont memantine. (15) Pneumonia: Status: Acute Assessment and plan: Multifocal pneumonia. On cefepime and Vancomycin, initially only for cellulitis. WBC count remaining mildly elevated at 12 for 3 days, but now modestly improved to 11. Stable. Subjective Subjective Patient reports: bowel movement (conts to have several stools/daily, now soft with some form. Not watery. ) and fever Interval history since last seen: Pt was given Seroquel overnight and remained sedated most of this AM Exam Narrative Exam Narrative: General: Pleasant elderly female sitting up in bed. Cooperative. HEENT: Sclera clear, MMM Heart:RRR, no murmur Lungs: Lungs clear. No increased work of breathing. Abdomen: soft, nontender, nondistended. Protuberant. Extremities: B extremities warm with Charcot feet; RLE with decreased area of erythema over tibial surface up to near the R knee which is mildly swollen.Erythema is less intense red. Skin is flaking over area of involvement at anterior ankle. Objective Last Vital Signs Temp 38.3 C H 01/28/22 14:21 Pulse 105 H 01/28/22 14:21 Resp 32 H 01/28/22 14:21 BP 129/69 01/28/22 14:21 Pulse Ox 95 01/28/22 14:21 Laboratory Results - last 24 hr 01/28/22 01/28/22 01/28/22 05:10 05:20 05:20 WBC 11.55 H RBC 3.96 Hgb 11.6 Hct 36.8 MCV 93 MCH 29.3 MCHC 31.5 L RDW 16.6 H Plt Count 282 MPV 11.2 H Sodium 140 Potassium 3.9 Chloride 107 Carbon Dioxide 27.3 Anion Gap 5.7 BUN 16 Creatinine 0.9 Est GFR (CKD-EPI 2020) 63.43 Glucose 100 Calcium 8.9 Total Bilirubin 0.8 AST 97 H ALT 101 H Alkaline Phosphatase 101 Total Protein 6.3 L Albumin 2.0 L Vancomycin Trough 13.5 COVID-19 Source SARS-CoV-2 (PCR) Influenza Type A (PCR) Influenza Type B (PCR) RSV (PCR) 01/28/22 01/28/22 08:44 10:05 WBC RBC Hgb Hct MCV MCH MCHC RDW Plt Count MPV Sodium Potassium Chloride Carbon Dioxide Anion Gap BUN Creatinine Est GFR (CKD-EPI 2020) Glucose Calcium Total Bilirubin AST ALT Alkaline Phosphatase Total Protein Albumin Vancomycin Trough COVID-19 Source Cancelled Nasopharynx SARS-CoV-2 (PCR) Cancelled Negative Influenza Type A (PCR) Cancelled Negative Influenza Type B (PCR) Cancelled Negative RSV (PCR) Cancelled Negative
--- NOTE | 2022-01-28 15:45 | PT.INTREAT ---
Date of service: 01/28/22 Time of Service: 15:18 PT Notes Visit Reasons: Sepsis Syndrome, Dehydration, Cellulitis, PNA Inpatient Physical Therapy Treatment Note [facility] Date: 01/28/2022 PRECAUTIONS: Fall, activity as tolerated, confusion SUBJECTIVE: Margaux is pleasant and agreeable to participating in PT. She states I hope I'm getting better so I can go home. OBJECTIVE: PAIN: Patient c/o pain in B feet with weight bearing BED MOBILITY/TRANSFERS Supine-sit: CGA Sit-stand: CGA Stand-sit: CGA GAIT Assistive Device: FWW Weight bearing: Full Assist: CGA Distance: 10' Deviation: Pain in B feet, increased fatigue, SOB TOILETING: Patient was incontinent of stool, requiring Max A. She tolerates static standing with FWW support and SBA x3 x~5 minutes for clean up. ASSESSMENT: Patient continues to demonstrate global weakness, however, she was able to tolerate a progression in gait distance with FWW support and CGA. She appears limited by pain in B feet with weight bearing. PLAN: Continue with global strengthening and general conditioning for improved activity tolerance and mobility. TREATMENT CODE/TIME: 25 minutes; 62069 x2 (15:18)
--- NOTE | 2022-01-28 17:01 | CMPROGNOTE_ITS ---
- If Service Date Differs Date of service: 01/28/22 Time of Service: 17:01 Care Management Progress Note S/O: Margaux now on Med/Surg, no change to overall plan. Awaiting call from [facility] on PCP determination. CM continues to support discharge planning. A: 81 year old female admitted to [facility] 01/22/22 P: Margaux remains in the ICU at this time, with multiple medical issues being treated. At this point, the family plans on Margaux relocating to [place] to stay with her son, Alvaro and his . CM attempted to coordinate home PT in [facility]; VNA will not allow local PCP to follow orders, Margaux is not established with PCP in [facility], CM reviewed need with [id number] who reported she would follow up with local PCPs. She will likely need to discharge and establish care in [place] prior to having home health. CM continues to follow.
[2022-01-28] MEDS: QUEtiapine 25 MG TAB 12.5 MG PO (18:36)
[2022-01-28] MEDS: Nystatin POWDER 60 GM JAR TP (20:33)
[2022-01-28] MEDS: Divalproex 125 MG TABEC PO (20:33)
[2022-01-28] MEDS: Memantine 5 MG TAB PO (20:35)
[2022-01-28] MEDS: guaiFENesin 600 MG TABCR PO (20:35)
[2022-01-28] MEDS: Glucosamine/Chondroitin CAP 1 CAP PO (20:35)
[2022-01-28] MEDS: Calcium 600mg/Vit D 200U TAB 1 TAB PO (20:49)
[2022-01-29] VITALS (11 sets, daily range): BP systolic 96–105; BP diastolic 57–69; PULSE 84–96; RESP 20–24; TEMP 37.1–38.8; O2SAT 93–98
[2022-01-29] MEDS: Acetaminophen 500 MG TAB 1000 MG PO ×3 (01:18→23:08)
[2022-01-29] MEDS: Levalbuterol 0.63 MG/3 ML UPD VIAL UPD (01:28)
[2022-01-29 07:29] LABS: ALT 67 U/L (14-59); AST 49 U/L (15-37); Albumin 1.6 g/dL (3.4-5.0); Alkaline Phosphatase 90 U/L (46-116); Anion Gap 6.6 mmol/L (3-11); BUN 16 mg/dL (7-18); Bilirubin, Total 0.6 mg/dL (0.2-1.0); CO2 25.4 mmol/L (21.0-32.0); CREATININE 0.8 mg/dL (0.55-1.02); Calcium 8.4 mg/dL (8.5-10.1); Chloride 109 mmol/L (98-107); Estimated GFR 73.06 (mL/min/1.73m2); Glucose 88 mg/dL (74-106); Potassium 3.4 mmol/L (3.5-5.1); Sodium 141 mmol/L (136-145); Total Protein 5.6 g/dL (6.4-8.2)
[2022-01-29] MEDS: Nystatin POWDER 60 GM JAR TP ×2 (09:34→19:17)
[2022-01-29] MEDS: Aspirin 81 MG CHEW PO (09:34)
[2022-01-29] MEDS: guaiFENesin 600 MG TABCR PO ×2 (09:34→19:18)
[2022-01-29] MEDS: Potassium Chloride 20 MEQ TABCR PO (09:34)
[2022-01-29] MEDS: Heparin 5,000 UNITS/ML VIAL 5000 UNITS SC ×2 (09:40→21:46)
[2022-01-29] MEDS: Memantine 5 MG TAB PO ×2 (09:40→19:18)
[2022-01-29] MEDS: Divalproex 125 MG TABEC PO ×2 (09:40→19:18)
--- NOTE | 2022-01-29 10:28 | CMPROGNOTE_ITS ---
- If Service Date Differs Date of service: 01/29/22 Time of Service: 10:28 Care Management Progress Note S/O: Margaux is now on Med/Surg, no change to overall plan. Pts MAITE Mccoy has spoken to Dr. Roddy Holm personally and he agrees to follow Margaux's VNA orders, locally while she is in [place]. CM continues to support discharge planning. [facility] Dr. Roddy Holm T- Fax- A: 81 year old female admitted to [facility] 01/22/22 P: At this point, the family plans on Margaux relocating to [place] to stay with her son, Alvaro and his . CM attempted to coordinate home PT in [facility]; VNA will not allow local PCP to follow orders, aMrgaux is not established with PCP in [place]. Per pts MAITE Mccoy, she works with Dr. Roddy Holm at [facility] and he agrees to follow Margaux's VNA orders, locally while she is in [place]. CM continues to follow.
[2022-01-29] MEDS: CEFEPIME 2 GM in Normal Saline 100 ML IVPB (10:47)
[2022-01-29] MEDS: Normal Saline Flush 10 ML SYR IVP ×2 (10:48→14:43)
--- NOTE | 2022-01-29 12:13 | W.SPSTE ---
Date of service: 01/29/22 Time of Service: 12:14 Subjective Clinical (Bedside) Swallow Evaluation Speech Language Pathology Patient referred for Clinical Swallow Evaluation from Dr Leonard given suspected aspiration event observed by nursing and family while inpatient. Precautions: Fall, Standard, DNR/DNI Patient Profile/Admitting Diagnosis:? Margaux is an 81-year-old female who presented to the ED on 01/22/2022 due to increasing confusion.? She is diagnosed with sepsis syndrome, cellulitis of right leg, pneumonia (multifocal), acute dehydration, diarrhea, transaminitis, rhabdomyolysis, hypovolemic shock, respiratory failure with hypoxia, acute kidney injury, and pulmonary edema. Suspected aspiration events reported by family/nursing and COUNTER WAITER was consulted. Patient currently NPO at time of eval, awaiting COUNTER WAITER recommendations. IMPRESSIONS/RECOMMENDATIONS Patient is at increased risk of aspiration when reclined, sedated, and given high work of breathing. Suspect mild dysphagia likely oral>pharyngeal, with increased risk given current pulmonary status. Difficult to determine s/sx aspiration due to baseline coughing, though seeming to increase coughing with large volumes thin liquids, eliminated with cues to take small/single sips. Patient also with prolonged mastication with reduced rotary motion. Recommend Minced/Moist Diet and Thin Liquids at this time to reduce risk of aspiration and reduce work of breathing. May be upgraded as medical/pulmonary status improves. She has been instructed to take single/small sips of liquid to reduce risk of aspiration. She should be supervised intermittently during meals and frequent reminders provided for single/small sips liquid. Please complete diligent oral care before & after meals, assist patient to complete this to reduce further pulmonary complications. Patient should be seated FULLY upright for all meals and for any sips of liquid. Avoid PO intake if patient is sedated or near somnolent. Further COUNTER WAITER services: Patient to be followed while on unit to ensure diet tolerance. No further COUNTER WAITER services needed upon discharge unless further concerns are identified by the family. ? Diet Texture Modification(s): IDDSI Level(s) SOLIDS 5-Minced & Moist Solids LIQUIDS 0-Thin Liquids Medication Intake: Whole with 0-Thin Liquids or 4-Extremely Thick Liquids RISK MANAGEMENT: HOB upright as tolerated; upright for all PO intake. Encourage physical mobility as tolerated. Oral hygiene BID/2x per day & before/after PO intake, using friction with toothbrush on all oral structures as tolerated, suction PRN Level of Assistance/Supervision: Intermittent supervision and provide reminders to take small sips Strategies/Adaptations/Assistive Equipment: Reduce auditory and/or visual distractions when eating Provide verbal and/or visual cues to use recommended strategies Small sips and bites when eating Slow rate of intake Posture/Positioning Needs: Maintain upright position at least 30 minutes after meals OBJECTIVE: Respiratory: room air with slightly elevated RR, audible congested exhale, high work of breathign Language: Grossly WFL, verbal expression/fluency, naming, repetition, auditory comprehension Mental Status: Pleasantly confused. Recall/carryover good within session. Oriented to self, only partially oriented to situation, time. Speech: without s/sx dysarthria Oral Motor Exam: ? Edentulous with full dentures, loose fitting. ? Oral Mucosa: Dry, minimal tongue buildup ? CN V - Trigeminal ? Jaw Movement ? WFL ? CN VII ? Labial/Facial ? Impaired strength - tremors while chewing ? Impaired coordination ? CN IX ? Palate ? WFL ? CN X ? Laryngeal ? Vocal quality ? Rough ? Breathy ? Volitional cough ? Sharp & strong, productive ? CN XII ? Lingual ? WFL ? Volitional Swallow ? Suspect reduced laryngeal elevation ? Suspect delayed onset of swallow ? Food items tested: ?? Ice: chips via tsp IDDSI 0:Water via cup edge IDDSI 4:Pudding IDDSI 7: saltine Oral phase: WFL Leakage from mouth Difficulty with bolus manipulation Difficulty with a-p transport X Difficulty chewing Pocketing Residue Pharyngeal phase: X Delayed swallow initiation Reduced hyolaryngeal elevation/excursion X Cough after swallow - difficult to differentiate from baseline cough, though appears to increase with large volumes thin liquid Voice change after swallow? Throat clearing? Endorsed stasis? Provided education to: Patient, Family, Nursing Topics Addressed: anatomy/physiology of swallowing mechanism, overt s/sx to monitor for re: potential aspiration of food / liquids, recommendations for improved oral care, relationship between respiratory function changes and deglutition, Rationale for recommendations as outlined below Outcome: Verbalized/demonstrated understanding Goals: Patient will tolerate safest/least restrictive diet of Soft/Bite size solids without s/sx aspiration. Patient/caregiver will be independent with aspiration precautions, diet modifications, and safe swallowing strategies. Patient/caregiver will verbalize/demonstrate understanding of education r/t anatomy/physiology of normal vs disordered swallowing mechanism, overt s/sx to monitor for re: potential aspiration of food liquids, recommendations for improved oral care, relationship between respiratory function changes and deglutition, rationale for risk management strategies. IN PROGRESS: Met x1 this date COUNTER WAITER CPT Code: 39780 Clinical Swallowing Evaluation Time spent: 35 minutes Coding
[2022-01-29] MEDS: VANCOMYCIN/WATER (PEG) 1 GM/200 ML BAG IVPB (14:43)
--- NOTE | 2022-01-29 15:24 | PT.INTREAT ---
Date of service: 01/29/22 Time of Service: 08:35 PT Notes Visit Reasons: Sepsis Syndrome, Dehydration, Cellulitis, PNA Inpatient Physical Therapy Treatment Note [facility] Date: 01/29/2022 PRECAUTIONS: Fall, activity as tolerated, confusion SUBJECTIVE: Margaux is pleasant and agreeable to participating in PT. In p.m. she reports I just don't feel good today, I don't feel right. OBJECTIVE: PAIN: Patient c/o pain in B feet with weight bearing BED MOBILITY/TRANSFERS Supine-sit: CGA Sit-stand: CGA Stand-sit: CGA GAIT Assistive Device: FWW Weight bearing: Full Assist: CGA Distance: 20' Deviation: Pain in B feet, increased fatigue, SOB TOILETING: Patient was incontinent of stool, requiring Max A. She tolerates static standing with FWW support and SBA x~2 minutes for clean up. ASSESSMENT: Patient continues to demonstrate global weakness, however, she was able to tolerate a progression in gait distance with FWW support and CGA. She appears limited by pain in B feet with weight bearing. PLAN: Continue with global strengthening and general conditioning for improved activity tolerance and mobility. TREATMENT CODE/TIME: Session 1: 30 minutes; 82523 x2 (08:35) Session 2: Patient refused due to not feeling well
--- NOTE | 2022-01-29 15:57 | W.PM.PROGNOT ---
Date of Service Date of service: 01/29/22 Time of Service: 15:58 Assessment and Plan Assessment and plan (1) Diarrhea: Status: Acute Assessment and plan: C. Diff neg. Stools are loose and black x 2 days. Stools are heme positive. Hgb drifted downward and stabilized. CBC in AM. PPI Lomotil prn. CT abd/pelvis w/o acute process noted. + cholelithiasis. (2) Transaminitis: Status: Acute Assessment and plan: In setting of rhabdomyolysis, septic shock (shock liver?), diarrhea. Monitor LFTs. Trending down. Imaging as above. Repeat lab in am (3) Rhabdomyolysis: Status: Acute Assessment and plan: Most likely d/t immobility. CPK continues to improve. Monitor. CT of RLE w/o acute findings. (4) Sepsis syndrome: Status: Acute Assessment and plan: Now corrected. (5) Hypovolemic shock: Status: Acute Assessment and plan: Now off norepinephrine. Given 2L hydration on 01/24 and has received several smaller, 250ml NS boluses since then for low BP and diminished urine outpt. Poor intake; encouraging her to drink/eat more. (6) Cellulitis of leg, right: Status: Acute Assessment and plan: Has been on Vanc and cefepime. Change to doxycycline 100mg BID. Area of involvement has improved. Edema of the area much improved. (7) Respiratory failure with hypoxia: Status: Acute Assessment and plan: Pulmonary/critical care consulted/ Dr Araiza. Her POCUS exam on 01/24 showed. she was dry and given the history of her diarrhea, EDUARDO and rhabdo, she likely was experiencing hypovolemic shock from dehydration. Given 2L IV fluids then has received several 250ml boluses. Off supplemental O2 now. Being administered prn albuterol. Encouraging IS use. + pneumonia contributing as well. Has aspirated on water x 2 but only placed on supplemental O2 after those episodes briefly. (8) Acute kidney injury: Status: Acute Assessment and plan: In setting of hypovolemic shock but also rhabdomyolysis. With hypokalemia. Repleted potassium. Creatinine now normalized at 0.9. Monitor. 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 Consider 2 view of knee if any worsening noted. (10) Toxic metabolic encephalopathy: Status: Acute Assessment and plan: Resolved. The patient does have a h/o Alzheimers. Continue treatment of infection. (11) Hypokalemia: Status: Acute Assessment and plan: Repleted (12) DVT prophylaxis: Status: Acute Assessment and plan: SC heparin to start tonight (13) Discharge planning issues: Status: Acute Assessment and plan: DNR/DNI Consulted palliative care. Her son plans to take her home with him to [place] when discharged. (14) Alzheimer disease: Status: Chronic Assessment and plan: She was agitated and pulling at lines/tubes and taking off clothes the evening of 01/27. Given Seroquel 25mg late that night and was lethargic until early afternoon the next day. Given Seroquel 12.5mg at 1800 the evening of 01/28 and showed no behavioral disturbances and slept well. Very fatigued the next day. Will not sched seroquel but has 12.5mg to take prn. Cont memantine. (15) Pneumonia: Status: Acute Assessment and plan: Multifocal pneumonia. Has been on cefepime and Vancomycin, initially only for cellulitis. WBC count improved to 11.55. Changed to doxycycline. When PNA first dxd she had not had any xin episodes of aspiration / choking. Has had 2 instances since then of choking on water. Once when son gave her a drink of water when supine. Speech performed bedside eval. Diet modified, but positioning and single sips at a time are ultimately the most important intervention. Has continued to have daily fever. Clinically her PNA has improved. UA negative. She had a central line but it was discontinued. Blood cultures and urine cx negative Entertained possibility of drug fever; neither antibiotic typically responsible or a risk for fever. However, did change to oral antibiotic today. Subjective Subjective Patient reports: no new complaints, tolerating a regular diet (Appetite diminished. ) and fever (38.5) Interval history since last seen: Aspirated on liquid last PM Exam Narrative Exam Narrative: General: Pleasant elderly female sitting up in bed. Cooperative. Appears very fatigued today. HEENT: Sclera clear, MMM Heart:RRR, no murmur Lungs: Lungs clear. Upper airway congestion noted. Nonlabored breathing. Abdomen: soft, nontender, nondistended. Protuberant. Extremities: B extremities warm with Charcot feet; RLE with decreased area of erythema over tibial surface up to near the R knee which is mildly swollen.Erythema is less intense red. Skin is flaking over area of involvement at anterior ankle. Objective Last Vital Signs Temp 38.5 C H 01/29/22 15:20 Pulse 96 H 01/29/22 15:20 Resp 24 01/29/22 15:20 BP 96/60 L 01/29/22 15:20 Pulse Ox 95 01/29/22 15:20 Laboratory Results - last 24 hr 01/29/22 06:40 Sodium 141 Potassium 3.4 L Chloride 109 H Carbon Dioxide 25.4 Anion Gap 6.6 BUN 16 Creatinine 0.8 Est GFR (CKD-EPI 2020) 73.06 Glucose 88 Calcium 8.4 L Total Bilirubin 0.6 AST 49 H ALT 67 H Alkaline Phosphatase 90 Total Protein 5.6 L Albumin 1.6 L
[2022-01-29] MEDS: Normal Saline 250 ML IV (16:40)
[2022-01-29] MEDS: Famotidine 20 MG TAB PO (16:51)
[2022-01-29] MEDS: Doxycycline Hyclate 100 MG CAP PO (19:17)
[2022-01-29] MEDS: Glucosamine/Chondroitin CAP 1 CAP PO (19:18)
[2022-01-29] MEDS: Calcium 600mg/Vit D 200U TAB 1 TAB PO (21:29)
[2022-01-30] VITALS (8 sets, daily range): BP systolic 102–128; BP diastolic 66–78; PULSE 92–100; RESP 1–32; TEMP 37.1–38.5; O2SAT 93–94
--- NOTE | 2022-01-30 | DI.RAD_ITS ---
Exam(s) XR PORTABLE CHEST AP EXAM: XR PORTABLE CHEST AP CLINICAL HISTORY: suspected aspiration pneumonia TECHNIQUE: COMPARISON: CR,XR XR PORTABLE CHEST AP from 01/25/2022 FINDINGS: Portable AP chest was obtained and is compared with prior examination of January 25. Bilateral mu ltifocal pulmonary opacities are again noted, increased radiodensity in left lung base is noted in co mparison with prior examination suggesting increasing consolidation in left lung base period IMPRESSION: The appearance is consistent with worsening multifocal pneumonia with new areas of infiltration in le ft lung base. RADIATION DOSE DELIVERED: Total DLP
[2022-01-30 06:37] LABS: Absolute Eosinophil Count 0.59 10^3/uL (0.0-0.7); Absolute Lymphocyte Count 1.54 10^3/uL (1.2-3.4); Absolute Monocyte Count 1.08 10^3/uL (0.1-0.8); Absolute Neutrophil Count 12.16 10^3/uL (1.2-6.7); Basophils % 0.8; Eosinophils % 3.7; HCT 35.9 % (36.0-46.0); HGB 11.3 g/dL (11.2-15.7); Immature Grans % 2.5; Lymphocytes % 9.7; MCH 28.9 pg (27.0-33.0); MCHC 31.5 % (32.0-36.0); MCV 92 fL (80-95); Monocytes % 6.8; Neutrophils % 76.5; RBC 3.91 10^6/uL (3.93-5.22); RDW 16.5 % (11.7-14.6); RDW-SD 55.3 fL; WBC 15.89 10^3/uL (4.4-10.8)
[2022-01-30] MEDS: Levalbuterol 0.63 MG/3 ML UPD VIAL UPD ×2 (06:41→20:14)
[2022-01-30 06:42] LABS: Absolute Basophil Count 0.13 10^3/uL (0.0-0.2)
[2022-01-30 06:51] LABS: ALT 63 U/L (14-59); AST 54 U/L (15-37); Albumin 1.8 g/dL (3.4-5.0); Alkaline Phosphatase 96 U/L (46-116); Anion Gap 7.6 mmol/L (3-11); BUN 15 mg/dL (7-18); Bilirubin, Total 0.7 mg/dL (0.2-1.0); CO2 23.4 mmol/L (21.0-32.0); Chloride 107 mmol/L (98-107); Glucose 85 mg/dL (74-106); Potassium 4.7 mmol/L (3.5-5.1); Sodium 138 mmol/L (136-145); Total Protein 6.7 g/dL (6.4-8.2)
[2022-01-30 07:05] LABS: C-Reactive Protein 10.94 mg/dL (0.0-0.3); CREATININE 0.7 mg/dL (0.55-1.02); Calcium 8.6 mg/dL (8.5-10.1); Estimated GFR 85.76 (mL/min/1.73m2)
[2022-01-30] MEDS: Doxycycline Hyclate 100 MG CAP PO (07:40)
[2022-01-30] MEDS: guaiFENesin 600 MG TABCR PO ×2 (07:42→19:38)
[2022-01-30] MEDS: Glucosamine/Chondroitin CAP 1 CAP PO ×2 (07:42→19:38)
[2022-01-30] MEDS: Aspirin 81 MG CHEW PO (07:43)
[2022-01-30] MEDS: Divalproex 125 MG TABEC PO ×2 (07:43→19:38)
[2022-01-30] MEDS: Multivitamin TAB 1 TAB PO (07:43)
[2022-01-30] MEDS: Memantine 5 MG TAB PO ×2 (07:43→19:38)
[2022-01-30] MEDS: Pantoprazole 40 MG TABCR PO (07:43)
[2022-01-30] MEDS: Nystatin POWDER 60 GM JAR TP ×3 (07:44→21:11)
[2022-01-30] MEDS: Potassium Chloride 20 MEQ TABCR PO (07:44)
[2022-01-30 09:26] LABS: Procalcitonin 0.8 ng/mL
[2022-01-30] MEDS: Calcium 600mg/Vit D 200U TAB 1 TAB PO ×2 (10:01→19:38)
[2022-01-30] MEDS: Ferrous Sulfate 325 MG TAB PO (10:01)
[2022-01-30] MEDS: Heparin 5,000 UNITS/ML VIAL 5000 UNITS SC ×2 (10:03→21:31)
[2022-01-30 10:38] LABS: Bilirubin Negative (Negative); Blood Moderate (Negative); Clarity Clear (Clear); Glucose Negative (Negative); Ketones Trace mg/dL (Negative); Leukocyte Esterase Negative (Negative); Nitrite Negative (Negative); Specific Gravity 1.025 (1.005-1.025); Urobilinogen 0.2 EU/dL (Up TO 0.2)
[2022-01-30 10:46] LABS: Bacteria Negative HPF (Negative); C & S Indicated? No; Casts 3-5 Hyaline LPF (Negative); Crystals Negative HPF (Negative); Epithelial Cells Few HPF (Negative); Mucus Negative (Negative); WBC Negative HPF (0-5)
[2022-01-30 11:03] LABS: Lab Add On Test DONE
[2022-01-30] MEDS: Normal Saline Flush 10 ML SYR IVP ×3 (11:56→18:20)
[2022-01-30] MEDS: PIPERACILLIN/TAZO 3.375 GM in Normal Saline 50 ML IVPB ×2 (11:58→18:19)
--- NOTE | 2022-01-30 12:00 | WOUNDCONS_ITS ---
- If Service Date Differs Date of service: 01/30/22 Time of Service: 11:00 Wound Initial Evaluation Narrative: Patient an 81 yof , she presents with Rhabdomylosis and cellulitis of the right leg. Staff today noticed increased drainage from the leg, and asked for wound nursing to take a look at it Noted a patel place underneath the leg had saturated. Patient was a poor historian and was unable to provide much information on how long is or the etiology of the wound. Family that was present is from out of the area and was unable to provide much information either. Patient is willing to have a wound consult performed and signs the consent. H&P, labs and allergies, and other pertinent information are reviewed prior to performing the consultation, Body Four View: 1 - cellulitis - Wound Right Tib/Fib(lower leg) Wound Type: Statis Ulcer Wound General Appearance: Reddened, Draining, Unapproximated Wound Bed Greatest Portion: Red (Granulation) Wound Bed Lesser Portion: Pale [place] Percent of Wound Bed Granulated/Red: 95 Percent of Wound Bed Slough/Yellow: 0 Percent of Wound Bed Eschar/Black: 0 Wound Length: 8.5 cm Wound Width: 29 cm Wound Depth: 0.1 cm Wound Drainage Amount: Large Wound Drainage Odor: None/Absent Wound Drainage Description: Serous Wound Topical Solution/Irrigant: Antibiotic Irrigant Wound Debridement Method: Gauze Wound Debridement Result: Healthy Tissue Revealed Wound Debridement Amount of Tissue Removed: Moderate - Circulation, Sensation, Motion Edema Degree: 4+ Peripheral Pulse Strength: Weak Capillary Refill: Less than 3 seconds Sensation Description: Within Normal Limits Skin Temperature: Cool Skin Color: Normal - Pain Pain Level: 0 (no pain with debridement) Swollen leg, red and draining. Initial goal of treatment is to control the drainage and manage the underlying infection. Once the infection is better managed, compression should be considered to help mobilize the fluid. At this time elevate the leg as patient will tolerate - Photo Photo: - Treatment/Dressing Change Topicals/Ointments: None Cleanse With: Anasept Dressing Types: Adaptic (Contact Layer), Kerlix (Gauze Roll), Opti-Lock - Nutrition Education Reviewed Nutrition Education: Yes Note: Unsure if patient understood the need for increased protein. Primary nurse stated patient was getting ensure on her meal tray. Need to drink these were reinforced with the patient and her family - Recomendation Recomendation:: Right lower extremity. [place] open area with Anasept spray and allow to dwell for 2 minutes. Clean area with gauze, then pat dry. Apply Adaptic as a contact layer. Apply Optiloc to open areas to absorb drainage. Wrap with Kerlix. Use minimal tape to secure Kerlix. Change daily or PRN if soiled dislodged. Physcian/Nurse Practioner Notified: Yes (Dr. Seth) Treatment Time - Time Total Time Spent with Patient: 35 minute - Patient Will be Seen Weekly Treatment: daily - For: For:: 1 week
[2022-01-30] MEDS: Acetaminophen 500 MG TAB 1000 MG PO (12:30)
--- NOTE | 2022-01-30 13:14 | DI.VRAD_ITS ---
PROCEDURE INFORMATION: Exam: XR Chest Exam date and time: 01/30/2022 12:28 PM Age: 81 years old Clinical indication: Other: Suspected aspiration pneumonia TECHNIQUE: Imaging protocol: Radiologic exam of the chest. Views: 1 view. COMPARISON: XR PORTABLE CHEST AP 01/25/2022 4:00 PM FINDINGS: Lungs: Diffuse bilateral interstitial infiltrate. Focal consolidation or volume loss left lung base. Pleural spaces: Unremarkable. No pleural effusion. No pneumothorax. Heart/Mediastinum: Unremarkable. No cardiomegaly. Vasculature: Aortic calcifications. 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 Old right rib fractures. IMPRESSION: Progression of diffuse bilateral interstitial infiltrates with new focal consolidation or volume loss in the left lung base Dictated and Authenticated by: Zunilda Arce MD. Ordering:YANY Moffett MD
[2022-01-30 13:53] LABS: Lab Add On Test DONE
[2022-01-30 13:56] LABS: COVID-19 PCR Negative (Negative); Influenza A PCR Negative (Negative); Influenza B PCR Negative (Negative); RSV PCR Negative (Negative)
--- NOTE | 2022-01-30 13:56 | PGE_ITS ---
Date of Service Date of service: 01/30/22 Time of Service: 13:56 Assessment and Plan Assessment and plan (1) Sepsis syndrome: Status: Acute Assessment and plan: We are repeating blood cultures today and changed abx to zosyn given recurrence of fevers. (2) Pneumonia: Status: Acute Assessment and plan: Suspected worsening pneumonia with an aspiration component. Change doxycycline to zosyn. Speech consulted. Suspect this is the cause of recurrent fevers. Obtain blood cultures. Encourage pulmonary toilet. Continue to trend CRP, procalcitonin. (3) Cellulitis of leg, right: Status: Acute Assessment and plan: As above. Abx changed to zosyn. (4) Diarrhea: Status: Resolved Assessment and plan: C. Diff neg. Heme +. Diarrhea resolved. Continue PPI. Add probiotic. (5) Transaminitis: Status: Acute Assessment and plan: In setting of rhabdomyolysis,septicshock, ?shock liver, diarrhea. Better. Cholelithiasis but no cholecystitis on imaging. Recheck LFTs and CPK. (6) Rhabdomyolysis: Status: Acute Assessment and plan: Improved. Recheck CPK, LFTs. (7) Hypovolemic shock: Status: Resolved Assessment and plan: off of vasopressors. (8) Respiratory failure with hypoxia: Status: Resolved Assessment and plan: On RA at this time. However, is tachypneic and has evidence of pulmonary edema and worsening infiltrates on CXR. To receive furosemide 20 mg IV x 1. Abx are being changed to zosyn. COVID-19/Fluvid negative. echo on 01/23 showed LVEF of 55%, RVSP of 32 mmHg and mildly dilated RV. (9) Acute kidney injury: Status: Resolved Assessment and plan: In setting of septic shock and rhabdo. Cr is now 0.7. Monitor with resumption of diuretics. 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 If fevers persist past 48 hrs on zosyn, would reconsult ortho for arthrocenthesis. (11) Toxic metabolic encephalopathy: Status: Resolved Assessment and plan: In setting of spetic shock. Resolved. h/o Alzheimers. Continue monitoring behaviors while treating infection. (12) Hypokalemia: Status: Resolved Assessment and plan: Repleted (13) Alzheimer disease: Status: Chronic Assessment and plan: Continue prn seroquel and memantine. (14) DVT prophylaxis: Status: Acute Assessment and plan: SC heparin (15) Discharge planning issues: Status: Acute Assessment and plan: DNR/DNI Palliative care consulted. Home with caretakers when ready. Subjective Subjective Interval history since last seen: Ms Zamora denies pain, dizziness, shortness of breath, nausea. Her R knee is not bothering her. Nursing reports that her RLE has been draining quite a bit of serosanguenous drainage. Wound care consult has been done on it and absorbent dressing applied. Febrile overnight and now (38.5). Nursing reports several choking spells, the last one being 48 hrs ago with evening meds. Exam Narrative Exam Narrative: General: Pleasant elderly female who is sitting up in a chair, mildly tachypneic but not in distress, A&Ox1, warm to touch HEENT: EOMI, MMM Heart: RRR Lungs: scattered expiratory wheezes (few), otherwise, diminished/dull breath sounds B Abdomen: soft, nontender, nondistended Extremities: +2 RLE edema, trace edema LLE, RLE wrapped. Some erythema is visible beyond the dressing borders and over the R knee. R knee still feels warm; no TTP R knee. Objective Last Vital Signs Temp 38.5 C H 01/30/22 12:18 Pulse 96 H 01/30/22 12:18 Resp 32 H 01/30/22 12:18 BP 122/70 01/30/22 12:18 Pulse Ox 94 01/30/22 12:18 Laboratory Results - last 24 hr 01/29/22 01/30/22 01/30/22 18:00 06:25 06:25 WBC 15.89 H RBC 3.91 L Hgb Cancelled 11.3 Hct Cancelled 35.9 L MCV 92 MCH 28.9 MCHC 31.5 L RDW 16.5 H Plt Count MPV Immature Gran % 2.5 Neutrophils % 76.5 Lymphocytes % 9.7 Monocytes % 6.8 Eosinophils % 3.7 Basophils % 0.8 Nucleated RBC % 0.0 Absolute Neutrophils 12.16 H Absolute Lymphocytes 1.54 Absolute Monocytes 1.08 H Absolute Eosinophils 0.59 Absolute Basophils 0.13 Sodium 138 Potassium 4.7 D Chloride 107 Carbon Dioxide 23.4 Anion Gap 7.6 BUN 15 Creatinine 0.7 Est GFR (CKD-EPI 2020) 85.76 Glucose 85 Calcium 8.6 Total Bilirubin 0.7 AST 54 H ALT 63 H Alkaline Phosphatase 96 C-Reactive Protein 10.94 H Total Protein 6.7 Albumin 1.8 L Procalcitonin Urine Color Urine Clarity Urine pH Ur Specific [place] Urine Protein Urine Ketones Urine Blood Urine Nitrite Urine Bilirubin Urine Urobilinogen Ur Leukocyte Esterase Urine RBC Urine WBC Ur Epithelial Cells Urine Crystals Urine Bacteria Urine Casts Urine Mucus Ur Culture Indicated? Urine Glucose Add-On Test Request 01/30/22 01/30/22 01/30/22 08:45 08:48 08:48 WBC RBC Hgb Hct MCV MCH MCHC RDW Plt Count MPV Immature Gran % Neutrophils % Lymphocytes % Monocytes % Eosinophils % Basophils % Nucleated RBC % Absolute Neutrophils Absolute Lymphocytes Absolute Monocytes Absolute Eosinophils Absolute Basophils Sodium Potassium Chloride Carbon Dioxide Anion Gap BUN Creatinine Est GFR (CKD-EPI 2020) Glucose Calcium Total Bilirubin AST ALT Alkaline Phosphatase C-Reactive Protein Total Protein Albumin Procalcitonin 0.8 Urine Color Urine Clarity Urine pH Ur Specific [place] Urine Protein Urine Ketones Urine Blood Urine Nitrite Urine Bilirubin Urine Urobilinogen Ur Leukocyte Esterase Urine RBC Urine WBC Ur Epithelial Cells Urine Crystals Urine Bacteria Urine Casts Urine Mucus Ur Culture Indicated? Urine Glucose Add-On Test Request DONE DONE 01/30/22 10:17 WBC RBC Hgb Hct MCV MCH MCHC RDW Plt Count MPV Immature Gran % Neutrophils % Lymphocytes % Monocytes % Eosinophils % Basophils % Nucleated RBC % Absolute Neutrophils Absolute Lymphocytes Absolute Monocytes Absolute Eosinophils Absolute Basophils Sodium Potassium Chloride Carbon Dioxide Anion Gap BUN Creatinine Est GFR (CKD-EPI 2020) Glucose Calcium Total Bilirubin AST ALT Alkaline Phosphatase C-Reactive Protein Total Protein Albumin Procalcitonin Urine Color Yellow Urine Clarity Clear Urine pH 6.0 Ur Specific [place] 1.025 Urine Protein 30 H Urine Ketones Trace H Urine Blood Moderate H Urine Nitrite Negative Urine Bilirubin Negative Urine Urobilinogen 0.2 Ur Leukocyte Esterase Negative Urine RBC 5-10 H Urine WBC Negative Ur Epithelial Cells Few Urine Crystals Negative Urine Bacteria Negative Urine Casts 3-5 Hyaline Urine Mucus Negative Ur Culture Indicated? No Urine Glucose Negative Add-On Test Request Objective Narrative Objective Narrative: CXR: Progression of diffuse bilateral interstitial infiltrates with new focal consolidation or volume loss in the left lung base
[2022-01-30 14:13] LABS: NT-proBNP 1406 pg/mL (<300)
[2022-01-30] MEDS: Furosemide 20 MG/2 ML VIAL IVP (14:13)
[2022-01-31] VITALS (13 sets, daily range): BP systolic 103–114; BP diastolic 65–72; PULSE 81–112; RESP 1–29; TEMP 37.2–38; O2SAT 91–95
--- NOTE | 2022-01-31 | DI.CT_ITS ---
Exam(s) CT CHEST WO EXAM: CT CHEST WO CLINICAL HISTORY: pneumonia TECHNIQUE: Imaging Protocol: Axial computed tomography images with coronal and sagittal reformatted images were created and reviewed CONTRAST MATERIAL: Noncontrast. COMPARISON: CR,XR XR PORTABLE CHEST AP from 01/30/2022 FINDINGS: Exam is significantly limited by patient motion. Tracheobronchial tree: No bronchiectasis or mucous plugging. Mediastinum and [place]: No dominant adenopathy or fluid collection. Pulmonary parenchyma: Limited evaluation due to significant motion.. No dominant measurable mass or consolidation.. Pleura: Small bilateral pleural effusions, right greater than left.. No pneumothorax. Heart: The heart is mildly dilated. Moderate coronary artery calcifications are seen. Aorta: Thoracic aorta non-dilated. Atherosclerotic changes. Tortuous distally. Upper abdomen: Unremarkable. Lymph nodes: Within normal limits. Bones: Degenerative changes in the spine and shoulders.. Soft tissues: Unremarkable. IMPRESSION: Cardiomegaly and small bilateral pleural effusions. No focal infiltrate. RADIATION DOSE DELIVERED: 588.62mGy.cm Total DLP DATA REPOSITORY: All CT scans at this facility are submitted to the National Radiology Data Registry (NRDR) Dose Index Registry (DIR) with the [employer] (ACR). RADIATION OPTIMIZATION: All CT scans at this facility use at least one of these dose optimization te chniques: automated exposure control; mA and/or kV adjustment per patient size (includes targeted exa ms where dose is matched to clinical indication); or iterative reconstruction.
[2022-01-31] MEDS: PIPERACILLIN/TAZO 3.375 GM in Normal Saline 50 ML IVPB ×5 (02:08→23:47)
[2022-01-31] MEDS: Normal Saline Flush 10 ML SYR IVP ×2 (02:10→05:42)
[2022-01-31 07:34] LABS: Abs Immature Grans 0.16 10^3/uL (0.0-0.06); Absolute Basophil Count 0.11 10^3/uL (0.0-0.2); Absolute Lymphocyte Count 1.13 10^3/uL (1.2-3.4); Absolute Monocyte Count 1.09 10^3/uL (0.1-0.8); Absolute Neutrophil Count 8.96 10^3/uL (1.2-6.7); Basophils % 0.9; HCT 31.1 % (36.0-46.0); HGB 10.1 g/dL (11.2-15.7); Immature Grans % 1.4; Lymphocytes % 9.6; MCH 29.5 pg (27.0-33.0); MCHC 32.5 % (32.0-36.0); MCV 91 fL (80-95); MPV 10.2 fL (8.0-11.0); Monocytes % 9.2; Neutrophils % 75.9; Platelet Count 463 10^3/uL (130-400); RBC 3.42 10^6/uL (3.93-5.22); RDW 16.3 % (11.7-14.6); RDW-SD 54.8 fL; WBC 11.81 10^3/uL (4.4-10.8)
[2022-01-31 07:35] LABS: Absolute Eosinophil Count 0.35 10^3/uL (0.0-0.7)
[2022-01-31] MEDS: Memantine 5 MG TAB PO ×2 (07:56→20:14)
[2022-01-31] MEDS: guaiFENesin 600 MG TABCR PO ×2 (07:56→20:14)
[2022-01-31] MEDS: Glucosamine/Chondroitin CAP 1 CAP PO ×2 (07:56→20:14)
[2022-01-31] MEDS: Calcium 600mg/Vit D 200U TAB 1 TAB PO ×2 (07:56→20:14)
[2022-01-31] MEDS: Pantoprazole 40 MG TABCR PO (07:56)
[2022-01-31] MEDS: Aspirin 81 MG CHEW PO (07:56)
[2022-01-31] MEDS: Divalproex 125 MG TABEC PO ×2 (07:56→20:14)
[2022-01-31] MEDS: Ferrous Sulfate 325 MG TAB PO (07:56)
[2022-01-31] MEDS: Multivitamin TAB 1 TAB PO (07:56)
[2022-01-31] MEDS: Potassium Chloride 20 MEQ TABCR PO (07:57)
[2022-01-31] MEDS: Acetaminophen 500 MG TAB 1000 MG PO ×2 (07:57→20:24)
[2022-01-31] MEDS: Nystatin POWDER 60 GM JAR TP ×3 (07:57→20:19)
[2022-01-31 08:05] LABS: Anion Gap 7.7 mmol/L (3-11); BUN 13 mg/dL (7-18); C-Reactive Protein 8.94 mg/dL (0.0-0.3); CO2 27.3 mmol/L (21.0-32.0); CREATININE 0.8 mg/dL (0.55-1.02); Calcium 8.5 mg/dL (8.5-10.1); Chloride 108 mmol/L (98-107); Creatine Kinase 98 U/L (26-192); Estimated GFR 73.06 (mL/min/1.73m2); Glucose 106 mg/dL (74-106); Magnesium 1.8 mg/dL (1.8-2.4); Potassium 3.1 mmol/L (3.5-5.1); Sodium 143 mmol/L (136-145)
[2022-01-31 08:10] LABS: ALT 52 U/L (14-59); AST 39 U/L (15-37); Albumin 1.7 g/dL (3.4-5.0); Alkaline Phosphatase 93 U/L (46-116); Bilirubin, Direct 0.2 mg/dL (0.0-0.2); Bilirubin, Total 0.6 mg/dL (0.2-1.0); Total Protein 6.3 g/dL (6.4-8.2)
--- NOTE | 2022-01-31 08:15 | RT.EKG_ITS ---
APPROVED REPORT Exam: Resting ECG Reason for Exam: QTC monitoring Patient Location: I HR:98 bpm ECG Measurements Heart Rate 98 AXIS SD 146 P 13 QRSd 105 QRS -49 QT 351 T -21 QTc 449 Conclusion Sinus rhythm...normal P axis, V-rate 50- 99 Abnormal R-wave progression, early transition...QRS area>0 in V2 Probable inferior infarct, age indeterminate...Q>35mS, T neg, II III aVF
[2022-01-31 09:03] LABS: Iron 13 ug/dL (50-170)
[2022-01-31 09:26] LABS: Ferritin 206 ng/mL (8-252); Folate 18.4 ng/mL (8.6-20.0); Vitamin B12 1167 pg/mL (193-986)
[2022-01-31] MEDS: Heparin 5,000 UNITS/ML VIAL 5000 UNITS SC ×2 (09:28→20:16)
[2022-01-31] MEDS: AZITHROMYCIN 500 MG in Normal Saline 250 ML 250 MG IVPB (09:30)
--- NOTE | 2022-01-31 11:15 | CMPROGNOTE_ITS ---
- If Service Date Differs Date of service: 01/31/22 Time of Service: 11:15 Care Management Progress Note S/O: Margaux remains on Med/Surg, worsening pneumonia and recurrent fevers delaying progress per MD, speech therapy ordered (unavailable until Thursday), as well as blood cultures, trending labs; CRP, procalcitone. Antibiotic changed to Zosyn. No change to overall plan. MAITE Mccoy has spoken to Dr. Roddy Holm personally and he agrees to follow Margaux's [facility] orders. CM continues to support discharge planning. A: 81 year old female admitted to [facility] 01/22/22 P: At this point, the family plans on Margaux relocating to [place] to stay with her son, Alvaro and his . CM attempted to coordinate home PT in [facility]; [facility] will not allow local PCP to follow orders, Margaux is not established with PCP in [place]. Per pts MAITE Mccoy, she works with Dr. Roddy Holm at [facility] and he agrees to follow Margaux's [facility] orders. CM continues to follow. [facility] Dr. Roddy Holm T- Fax-
[2022-01-31 11:30] LABS: Total Iron Binding Capacity 152 ug/dL (250-450)
[2022-01-31] MEDS: Levalbuterol 0.63 MG/3 ML UPD VIAL UPD ×4 (12:35→23:47)
--- NOTE | 2022-01-31 13:43 | CHAPLAIN ---
Margaux was visiting with her daughter in law and granddaughter when I stopped in. I explained my role and offered support. Margaux is working in moving to [place] with her son and his family and according to Care Management notes is working to transfer her health care to providers there.
--- NOTE | 2022-01-31 15:41 | W.PM.PROGNOT ---
Date of Service Date of service: 01/31/22 Time of Service: 15:41 Assessment and Plan Assessment and plan (1) Sepsis syndrome: Status: Acute Assessment and plan: Patient presented on admission w/ septic picture w/ EDUARDO (bun 44, creatinine 2.0) [place] [address], crp 24, procalcitionin 16.5 and hypotension and she required vasopressors and iv fluids. She has since recovered from the septic syndrome and renal and liver function have since normalized. While it is unusual for septic shock to develope from cellulitis alone (except in fasciitis or toxic shock syndrome) she was also hypovolemic from diarrhea and decreased oral intake and had pneumonia. So multifactorial. her blood cultures have been no growth after multiple cultures and her CVC cath tip showed no growth. Urine culture from 01/25 showed no growth. Her CXR still shows evidence for pneumonia and her thoracic US confirms this. She had been on Vancomycin and cefepime but this was changed to oral doxycycline on 01/29. However, she was put back on Zosyn yesterday out of concern that her pneumonia was not improving. I have resumed the vancomcyin and will check her for MRSA colonization. If her nasal swab is negative then could consolidate her antibiotics. I do not feel she is volume overloaded based on my clinical exam and POCUS exams. (2) Pneumonia: Status: Acute Assessment and plan: cont. Zosyn, add Vancomycin; attempt sputum cultures, obtain urine legionella and strep studies. encourage pulmonary toiletrey w/ acapella and IS, nebulized xopenex (3) Cellulitis of leg, right: Status: Acute Assessment and plan: As above. (4) Diarrhea: Status: Resolved Assessment and plan: C. Diff neg. Heme +. Diarrhea resolved. Continue PPI. Add probiotic. add carafate in light of heme positive stools. (5) Transaminitis: Status: Resolved Assessment and plan: resolved. (6) Rhabdomyolysis: Status: Resolved Assessment and plan: CK now normal at 98. (7) Hypovolemic shock: Status: Resolved Assessment and plan: shock was probaly combo hypovolemia and sepsis. Now resolved. She is not volume overloaded despite her signficant edema in her right leg. I did POCUS venous compression study and she has no DVT. Her IVC is not dilated and has >50% inspiratory collapsibility and therefore I do not feel she is volume overloaded. for her lung POCUS she has bibasilar consolidation w/ air bronchogram and no upper lobe B lines but upper lung A line pattern. (8) Respiratory failure with hypoxia: Status: Resolved Assessment and plan: secondary to pnuemonia. not volume overloaded at this time. continue treatment for pneumonia (9) Acute kidney injury: Status: Resolved Assessment and plan: In setting of septic shock and rhabdo. Cr is now 0.7. 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 If fevers persist past 48 hrs on zosyn, would reconsult ortho for arthrocenthesis. (11) Toxic metabolic encephalopathy: Status: Resolved Assessment and plan: In setting of spetic shock. Resolved. h/o Alzheimers. Continue monitoring behaviors while treating infection. (12) Hypokalemia: Status: Resolved Assessment and plan: cont. to replace (13) Alzheimer disease: Status: Chronic Assessment and plan: Continue prn seroquel and memantine. (14) DVT prophylaxis: Status: Acute Assessment and plan: SC heparin (15) Discharge planning issues: Status: Acute Assessment and plan: DNR/DNI Palliative care consulted. Home with caretakers when ready. Subjective Subjective Interval history since last seen: Patient denies any dyspnea, chest pain or cough. RLE remains edematous and red. She was switched back to Zosyn yesterday d/t concern for continued pneumonia. Patient initially presented w/ cellulitis RLE, nausea, vomting and diarrhea and was felt to be septic. However, her hypotensin and shock were primarily d/t hypovolemia and she responded to iv fluids. She is now off iv fluids. She is tolerting her diet. She did receive some lasix yesterday for what was believed to be hypervolemia. Exam Narrative Exam Narrative: Elderly white female alert and oriented to person/place and circumstances; no acute distress Lungs: bibasilar rales and decr. breath sounds at the bases Heart: RRR Legs: RLE 4+ edema from thigh to calf, still w/ significant redness over lower leg/pretibia and calf; left leg w/out edema Objective Last Vital Signs Temp 37.4 C 01/31/22 15:32 Pulse 81 01/31/22 15:32 Resp 14 01/31/22 15:32 BP 103/72 01/31/22 15:32 Pulse Ox 95 01/31/22 15:32 Laboratory Results - last 24 hr 01/31/22 01/31/22 01/31/22 06:25 06:25 06:25 WBC 11.81 H RBC 3.42 L Hgb 10.1 L Hct 31.1 L MCV 91 MCH 29.5 MCHC 32.5 RDW 16.3 H Plt Count 463 H MPV 10.2 Immature Gran % 1.4 Neutrophils % 75.9 Lymphocytes % 9.6 Monocytes % 9.2 Eosinophils % 3.0 Basophils % 0.9 Nucleated RBC % 0.0 Absolute Neutrophils 8.96 H Absolute Lymphocytes 1.13 L Absolute Monocytes 1.09 H Absolute Eosinophils 0.35 Absolute Basophils 0.11 Sodium 143 Potassium 3.1 L D Chloride 108 H Carbon Dioxide 27.3 Anion Gap 7.7 BUN 13 Creatinine 0.8 Est GFR (CKD-EPI 2020) 73.06 Glucose 106 Calcium 8.5 Magnesium 1.8 Iron TIBC Ferritin Total Bilirubin 0.6 Conjugated Bilirubin 0.2 AST 39 H ALT 52 Alkaline Phosphatase 93 Creatine Kinase 98 C-Reactive Protein 8.94 H Total Protein 6.3 L Albumin 1.7 L Vitamin B12 Folate Add-On Test Request 01/31/22 01/31/22 01/31/22 06:25 06:25 06:25 WBC RBC Hgb Hct MCV MCH MCHC RDW Plt Count MPV Immature Gran % Neutrophils % Lymphocytes % Monocytes % Eosinophils % Basophils % Nucleated RBC % Absolute Neutrophils Absolute Lymphocytes Absolute Monocytes Absolute Eosinophils Absolute Basophils Sodium Potassium Chloride Carbon Dioxide Anion Gap BUN Creatinine Est GFR (CKD-EPI 2020) Glucose Calcium Magnesium Iron 13 L TIBC Ferritin 206 Total Bilirubin Conjugated Bilirubin AST ALT Alkaline Phosphatase Creatine Kinase C-Reactive Protein Total Protein Albumin Vitamin B12 1167 H Folate 18.4 Add-On Test Request TNP 01/31/22 09:55 WBC RBC Hgb Hct MCV MCH MCHC RDW Plt Count MPV Immature Gran % Neutrophils % Lymphocytes % Monocytes % Eosinophils % Basophils % Nucleated RBC % Absolute Neutrophils Absolute Lymphocytes Absolute Monocytes Absolute Eosinophils Absolute Basophils Sodium Potassium Chloride Carbon Dioxide Anion Gap BUN Creatinine Est GFR (CKD-EPI 2020) Glucose Calcium Magnesium Iron TIBC 152 L Ferritin Total Bilirubin Conjugated Bilirubin AST ALT Alkaline Phosphatase Creatine Kinase C-Reactive Protein Total Protein Albumin Vitamin B12 Folate Add-On Test Request
--- NOTE | 2022-01-31 15:55 | PTTR_ITS ---
Date of service: 01/31/22 Time of Service: 15:55 PT Notes Visit Reasons: Sepsis Syndrome, Dehydration, Cellulitis, PNA Inpatient Physical Therapy Treatment Note [facility] Date: 01/31/2022 PRECAUTIONS: Fall. Activity as tolerated. SUBJECTIVE: Complained of shortness of breath during ambulation activity needing seated seated rest. Reported pain in the R LE at 3-4/10 with weight bearing. OBJECTIVE: ? ? ? R leg less erythematous and less swollen compared to day of evaluation. Vila catheter in place. ? PAIN: Pain in R knee and leg as above ? BED MOBILITY/TRANSFERS? Sit-stand: contact guard assist with cues needed to use her B UE for support? Stand-sit: contact guard assist with cues needed to use her B UE for support? GAIT? Assistive Device: FWW ? Weight bearing: FWB Assist: contact guard assist to minimal assist? Distance:? 40 feet + 15 feet + 15 feet Deviation: Near LOB with backing up onto chair needing minimal assist to recover, step-to gait pattern, chino decreased, pain at 3-4/10 with weight bearing. Moderate SOB that required seated rest. THERA EX: Seated hip abduction x 10 Chest expansion exercises with DBE x 5 LAQ x 10 Chest expansion exercises with DBE x 5 Seated marches x 10 Chest expansion exercises with DBE x 5 Ankle DF/PF ASSESSMENT:? Demonstrates slow progression in terms of distance and activity tolerance. Swelling and erythema to R LE diminishing. Prognosis for functional mobility prognosis better with resolution of cellulitis in R leg. Deferred ambulation activity with patent in the afternoon due to report of pain at 8-9/10, nurse Brittny updated. PLAN: Progress strength, balance, and mobility level as tolerated per PT POC. DISCHARGE RECOMMENDATIONS: [] Home with no services [] [X] Home with services. Plans to discharge to her son's house in [place]. Patient will benefit from home health PT services in order to progress mobility level using least restrictive assistive ambulatory device, assess home safety, identify additional equipment needs, and establish a functional maintenance program that will increase ability of patient to remain at home. [] Home with outpatient PT [] [] SNF for continued rehabilitation [] [] [facility] [] [] SNF versus LTC based on ability to participate and progress [] TREATMENT CODE/TIME: Session 1--19932 x 28 minutes beginning at 11:34 AM. ? Session 2--9711 0 x 27 minutes beginning at 3:55 PM.
--- NOTE | 2022-01-31 18:27 | W.POCUS ---
Pocus Exam Limited Vascular Exam DATE OF EXAM: 01/31/22 TIME OF EXAM: 18:27 PROVIDER THAT PERFORMED THE STUDY: Ko Crowder Vascular Exam: Right lower extremity REASON FOR EXAM: Concern for DVT right lower extremity VISUALIZED STRUCTURES: Right common femoral vein, Right popliteal vein, Right superficial femoral vein and Right greater saphenous vein PERTINENT FINDINGS/IMPRESSION: Compressible veins right leg and No apparent abnormalities Exam Complete
--- NOTE | 2022-01-31 18:28 | POCUS_ITS ---
Pocus Exam Limited Thoracic Lung Exam DATE OF EXAM: 01/31/22 TIME OF EXAM: 18:28 PROVIDER THAT PERFORMED THE STUDY: Ko Crowder IS THIS A REPEAT EXAM DURING THIS ENCOUNTER: No REASON FOR EXAM: Pneumonia VISUALIZED STRUCTURES: right anterior, left anterior, right lateral, left lateral, right posterior, left posterior, right subcostal and left subcostal PERTINENT FINDINGS/IMPRESSION: B-lines/left side thoracis location: lateral, B- lines/right side thoracis location: lateral, Pneumonia (bilateral lower lobe consolidation best seen in inferior/lateral zones associated w/ air bronchogram and consolidation and effusions), Left pleural effusion and Right pleural effusion Exam complete
--- NOTE | 2022-01-31 19:28 | DI.VRAD_ITS ---
PROCEDURE INFORMATION: Exam: CT Chest Without Contrast; Diagnostic Exam date and time: 01/31/2022 18:45 Age: 81 years old Clinical indication: Other: Pneumonia TECHNIQUE: Imaging protocol: Diagnostic computed tomography of the chest without contrast. 3D rendering (Not supervised by radiologist): MIP and/or 3D reconstructed images were created by the technologist. Radiation optimization: All CT scans at this facility use at least one of these dose optimization techniques: automated exposure control; mA and/or kV adjustment per patient size (includes targeted exams where dose is matched to clinical indication); or iterative reconstruction. COMPARISON: XR PORTABLE CHEST AP 01/30/2022 12:28 FINDINGS: Thyroid: Right thyroid nodules. Follow-up as per institutional protocol. Lungs: Patchy mild ground-glass opacities are apical predominant. Mild compressive atelectasis in the lung bases. No convincing airspace disease to suggest pneumonia. Pleural spaces: Moderate right greater than left pleural effusions. No pneumothorax. Heart: Mild cardiomegaly. Lymph nodes: No definite mediastinal adenopathy. Motion artifact. Vasculature: No aortic aneurysm. Bones/joints: Nonacute appearing right lateral rib deformities. Allowing for motion no acute fracture. Soft tissues: No suspicious lesions. IMPRESSION: 1. CHF. Mild cardiomegaly. 2. Moderate right greater than left pleural effusions. 3. Patchy mild ground-glass opacities are apical predominant. Favors patchy mild pulmonary edema over pneumonitis or atypical infection. 4. Mild compressive atelectasis in the lung bases. 5. Additional findings as described. Dictated and Authenticated by: Lili Basurto MD. Ordering:[facility] Vel Connell MD
[2022-01-31] MEDS: VANCOMYCIN 1,250 MG in Normal Saline 250 ML 167 MG IVPB (20:13)
[2022-01-31] MEDS: QUEtiapine 25 MG TAB 12.5 MG PO (20:15)
[2022-01-31 23:33] LABS: Legionella Ag Detection Urine Negative (Negative)
[2022-02-01] VITALS (11 sets, daily range): BP systolic 102–152; BP diastolic 56–80; PULSE 79–101; RESP 2–28; TEMP 36.5–38.3; O2SAT 92–95
[2022-02-01] MEDS: Levalbuterol 0.63 MG/3 ML UPD VIAL UPD ×3 (04:45→20:19)
[2022-02-01] MEDS: Normal Saline Flush 10 ML SYR IVP ×4 (05:31→20:30)
[2022-02-01] MEDS: PIPERACILLIN/TAZO 3.375 GM in Normal Saline 50 ML IVPB ×3 (05:31→17:16)
[2022-02-01 06:28] LABS: Absolute Eosinophil Count 0.42 10^3/uL (0.0-0.7); Absolute Lymphocyte Count 0.95 10^3/uL (1.2-3.4); Absolute Monocyte Count 0.86 10^3/uL (0.1-0.8); Absolute Neutrophil Count 6.83 10^3/uL (1.2-6.7); Basophils % 1.1; Eosinophils % 4.5; HCT 28.3 % (36.0-46.0); HGB 8.8 g/dL (11.2-15.7); Immature Grans % 1.1; Lymphocytes % 10.3; MCH 28.7 pg (27.0-33.0); MCHC 31.1 % (32.0-36.0); MCV 92 fL (80-95); MPV 9.8 fL (8.0-11.0); Monocytes % 9.3; Neutrophils % 73.7; Platelet Count 441 10^3/uL (130-400); RBC 3.07 10^6/uL (3.93-5.22); RDW 16.3 % (11.7-14.6); WBC 9.26 10^3/uL (4.4-10.8)
[2022-02-01 06:45] LABS: ALT 44 U/L (14-59); AST 36 U/L (15-37); Albumin 1.6 g/dL (3.4-5.0); Alkaline Phosphatase 79 U/L (46-116); Anion Gap 3.7 mmol/L (3-11); BUN 11 mg/dL (7-18); Bilirubin, Total 0.5 mg/dL (0.2-1.0); C-Reactive Protein 8.08 mg/dL (0.0-0.3); CO2 29.3 mmol/L (21.0-32.0); CREATININE 0.8 mg/dL (0.55-1.02); Calcium 8.1 mg/dL (8.5-10.1); Chloride 110 mmol/L (98-107); Estimated GFR 73.06 (mL/min/1.73m2); Glucose 93 mg/dL (74-106); Potassium 3.2 mmol/L (3.5-5.1); Sodium 143 mmol/L (136-145); Total Protein 5.9 g/dL (6.4-8.2)
[2022-02-01 07:27] LABS: Procalcitonin 0.2 ng/mL
[2022-02-01] MEDS: AZITHROMYCIN 500 MG in Normal Saline 250 ML 250 MG IVPB (08:15)
[2022-02-01] MEDS: Heparin 5,000 UNITS/ML VIAL 5000 UNITS SC ×2 (08:16→20:31)
[2022-02-01] MEDS: Multivitamin TAB 1 TAB PO (08:17)
[2022-02-01] MEDS: Memantine 5 MG TAB PO ×2 (08:17→20:19)
[2022-02-01 08:36] LABS: Lab Add On Test DONE
[2022-02-01 08:39] LABS: ESR 88 mm/hr (0-30)
[2022-02-01] MEDS: Protein Nutritional Supplement 16 GM 1 OUNCE PACKET PO ×3 (08:46→20:19)
[2022-02-01] MEDS: Glucosamine/Chondroitin CAP 1 CAP PO ×2 (08:46→20:18)
[2022-02-01] MEDS: Potassium Chloride 20 MEQ TABCR PO ×3 (08:47→20:18)
[2022-02-01] MEDS: Divalproex 125 MG TABEC PO ×2 (08:47→20:18)
[2022-02-01] MEDS: Aspirin 81 MG CHEW PO (08:47)
[2022-02-01] MEDS: Pantoprazole 40 MG TABCR PO ×2 (08:47→20:18)
[2022-02-01] MEDS: Nystatin POWDER 60 GM JAR TP ×3 (08:47→20:31)
[2022-02-01] MEDS: Calcium 600mg/Vit D 200U TAB 1 TAB PO ×2 (08:47→20:19)
[2022-02-01] MEDS: guaiFENesin 600 MG TABCR PO ×2 (08:47→20:19)
[2022-02-01] MEDS: Sucralfate 1 GM TAB PO ×4 (08:47→21:13)
[2022-02-01] MEDS: Potassium Chloride 10 MEQ CAPCR 20 MEQ PO (08:58)
[2022-02-01] MEDS: VANCOMYCIN/WATER (PEG) 1 GM/200 ML BAG IVPB (09:39)
--- NOTE | 2022-02-01 11:42 | PT.INTREAT ---
PT Notes Visit Reasons: Sepsis Syndrome, Dehydration, Cellulitis, PNA Inpatient Physical Therapy Treatment Note [facility] Date: 02/01/22 SUBJECTIVE: Margaux states that she is tired today. OBJECTIVE: [] BED MOBILITY/TRANSFERS pt already seated in recliner. Sit-stand: CGA Stand-sit:CGA GAIT Assistive Device: FWW Weight bearing: AT Assist:CGA Distance: 20'x2 THEREX: chair ex including LAQ 2x10, hip flex (may) x10. Hip ab/add x10, AP x15 and hip IR/ER x10. TOILETING: Patient was incontinent of stool, requiring Max A.? She tolerates static standing with FWW support and SBA x~3 minutes for clean up. ASSESSMENT: tolerated session fairly well. Pt c/o fatigue after ambulating and standing for clean up. She did experience a nose bleed while seated on toilet. She was able to clean herself up, indicating this happens on occasion. PLAN: will progress her strength and functional mobility following PT POC. TREATMENT CODE/TIME: 25 min [id number], [id number]
--- NOTE | 2022-02-01 14:37 | W.PM.PROGNOT ---
Date of Service Date of service: 02/01/22 Time of Service: 14:37 Assessment and Plan Assessment and plan (1) Sepsis syndrome: Status: Acute Assessment and plan: Patient presented with sepsis syndrome on admission requiring vasopressors and IV fluids. She initially had EDUARDO and acute transaminitis all of which have resolved. Her right leg cellulitis appears to be improving. Initial CT scan of the right lower extremity showed no abscess and no evidence of osteomyelitis on her CT scan. Her inflammatory markers are finally starting to resolve. Initially her procalcitonin was 16 and then dropped down to 0.8 and the latest level today is 0.2. Her CRP initially was 19 and then peaked at 24 and is now down to 8. ESR remains elevated at 88. Her WBCs have normalized at 9200 after peaking at 15,800. Patient currently is on Zosyn and vancomycin. MRSA screen is pending. Blood cultures of all been negative.. Professional time spent interviewing and examining patient, discussion of goals of care with hospital team (care management, nursing and consulting professionals) was 45 minutes. (2) Cellulitis of leg, right: Status: Acute Assessment and plan: As above. (3) Respiratory failure with hypoxia: Status: Resolved Assessment and plan: Initially felt to be secondary to pneumonia. Patient required volume resuscitation when she was in sepsis and hypovolemic shock. Contrary to my impression yesterday I now do believe that she has a mild hypervolemia. Chronically she was maintained on furosemide 20 mg daily. her echo from 01/23 was read as technically difficult, however, it was adequate enough that no RWMA were seen and her LV size and thickness were normal and her diastolic parameters were measured and she had no criteria for diastolic dysfunction, i.e. her MV annulus e' avg was over 10 cm/s, and her avg E/e' was 10.3 which is less than 14. Her BARBARA was 29 mL/m2 which is less than 34 and her TR max was 2.4 m/s which is less than 2.8 nevertheless she has dilated RV. However, this echo was done when she was hypotensive and hypovolemic. Now that she is normovolemic or probably hypervolemic her parameters very well may have changed. At this point clinically she seems to be hypervolemic w/ JVD bibasilar rales, although not showing peripheral edmes save for her RLE which a lot of this is d/t her cellulitis. I will start her on iv lasix and spironolactone. (4) Pneumonia: Status: Acute Assessment and plan: cont. Zosyn, add Vancomycin; attempt sputum cultures, obtain urine legionella and strep studies. encourage pulmonary toiletrey w/ acapella and IS, nebulized xopenex Urine strep antigen is pending. Urine Legionella is negative. (5) Diarrhea: Status: Resolved Assessment and plan: C. Diff neg. Heme +. Diarrhea resolved. Continue PPI. Add probiotic. add carafate in light of heme positive stools. Protonix doubled to BID (6) Heme + stool: Status: Acute Assessment and plan: Increase Protonix to twice a day, Carafate added to her regimen. Monitor H&H. Hemoglobin has been drifting downward. We will type and screen her. If her hemoglobin drops below 8 g we will transfuse her (7) Hypokalemia: Status: Resolved Assessment and plan: cont. 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 If fevers persist past 48 hrs on zosyn, would reconsult ortho for arthrocenthesis. (9) Alzheimer disease: Status: Chronic Assessment and plan: Continue memantine, DC Zyprexa, begin low-dose Remeron (10) DVT prophylaxis: Status: Acute Assessment and plan: SC heparin (11) Discharge planning issues: Status: Acute Assessment and plan: DNR/DNI Palliative care consulted. Home with caretakers when ready. Subjective Subjective Interval history since last seen: Margaux offers no complaints. Nursing notes that she was very sedated this morning probably secondary to the Seroquel she was given last night. We will try low-dose Remeron given earlier in the evening around 8 PM. If she is not giving any antipsychotic that she gets very agitated at night and combative. During the day she seems to be cooperative. Exam Narrative Exam Narrative: Margaux seems to be mildly dyspneic with any prolonged conversation. Neck reveals overt JVD to about snf up to the angle of her jaw. Lungs reveal bibasilar rales and some audible wheezing Heart is regular with a harsh systolic murmur heard over the left lower sternal border Abdomen is obese soft and nontender Extremities there is no peripheral edema of her hands wrists forearms and none over her left leg. Right leg has 4+ edema. Right lower extremity has increased warmth over the right knee as well as over the tibia. Tibia is bandaged I did not take down the bandage. The area of erythema does seem to be receding down towards the center her tibia where is the area between her patella and her mid tibia the redness is gone away. Objective Last Vital Signs Temp 36.5 C 02/01/22 06:57 Pulse 80 02/01/22 08:02 Resp 20 02/01/22 08:02 BP 102/56 L 02/01/22 06:57 Pulse Ox 95 02/01/22 08:02 Laboratory Results - last 24 hr 01/31/22 02/01/22 02/01/22 09:31 06:14 06:14 WBC RBC Hgb Hct MCV MCH MCHC RDW Plt Count MPV Immature Gran % Neutrophils % Lymphocytes % Monocytes % Eosinophils % Basophils % Nucleated RBC % Absolute Neutrophils Absolute Lymphocytes Absolute Monocytes Absolute Eosinophils Absolute Basophils ESR Sodium 143 Potassium 3.2 L Chloride 110 H Carbon Dioxide 29.3 Anion Gap 3.7 BUN 11 Creatinine 0.8 Est GFR (CKD-EPI 2020) 73.06 Glucose 93 Calcium 8.1 L Total Bilirubin 0.5 AST 36 ALT 44 Alkaline Phosphatase 79 C-Reactive Protein 8.08 H Total Protein 5.9 L Albumin 1.6 L Procalcitonin 0.2 Urine Legionella Ag Negative Add-On Test Request 02/01/22 02/01/22 02/01/22 06:14 06:14 06:14 WBC 9.26 RBC 3.07 L Hgb 8.8 L Hct 28.3 L MCV 92 MCH 28.7 MCHC 31.1 L RDW 16.3 H Plt Count 441 H MPV 9.8 Immature Gran % 1.1 Neutrophils % 73.7 Lymphocytes % 10.3 Monocytes % 9.3 Eosinophils % 4.5 Basophils % 1.1 Nucleated RBC % 0.0 Absolute Neutrophils 6.83 H Absolute Lymphocytes 0.95 L Absolute Monocytes 0.86 H Absolute Eosinophils 0.42 Absolute Basophils 0.10 ESR 88 H Sodium Potassium Chloride Carbon Dioxide Anion Gap BUN Creatinine Est GFR (CKD-EPI 2020) Glucose Calcium Total Bilirubin AST ALT Alkaline Phosphatase C-Reactive Protein Total Protein Albumin Procalcitonin Urine Legionella Ag Add-On Test Request DONE Reviewed Pertinent PMH: Yes
[2022-02-01] MEDS: Spironolactone 25 MG TAB PO (15:26)
[2022-02-01] MEDS: Furosemide 40 MG/4 ML VIAL IVP (16:34)
[2022-02-01 16:55] LABS: Potassium 3.7 mmol/L (3.5-5.1)
[2022-02-01] MEDS: Lactobacillus Acidophilus CAP 1 CAP PO (20:19)
[2022-02-01] MEDS: Acetaminophen 500 MG TAB 1000 MG PO (20:19)
[2022-02-01] MEDS: Mirtazapine 15 MG TAB 7.5 MG PO (20:21)
[2022-02-02] VITALS (11 sets, daily range): BP systolic 98–113; BP diastolic 64–72; PULSE 83–94; RESP 2–26; TEMP 37–38.4; O2SAT 94–98
[2022-02-02] MEDS: PIPERACILLIN/TAZO 3.375 GM in Normal Saline 50 ML IVPB ×5 (00:41→23:30)
[2022-02-02] MEDS: Levalbuterol 0.63 MG/3 ML UPD VIAL UPD ×5 (00:46→20:15)
[2022-02-02] MEDS: VANCOMYCIN/WATER (PEG) 1 GM/200 ML BAG IVPB ×2 (01:33→14:46)
[2022-02-02 08:27] LABS: Anion Gap 4.6 mmol/L (3-11); BUN 13 mg/dL (7-18); CO2 30.4 mmol/L (21.0-32.0); CREATININE 0.8 mg/dL (0.55-1.02); Chloride 108 mmol/L (98-107); Estimated GFR 73.06 (mL/min/1.73m2); Glucose 86 mg/dL (74-106); NT-proBNP 1170 pg/mL (<300); Potassium 3.4 mmol/L (3.5-5.1); Sodium 143 mmol/L (136-145)
[2022-02-02] MEDS: Normal Saline Flush 10 ML SYR IVP ×2 (08:36→16:43)
[2022-02-02] MEDS: Protein Nutritional Supplement 16 GM 1 OUNCE PACKET PO ×3 (08:38→20:08)
[2022-02-02] MEDS: Memantine 5 MG TAB PO ×2 (08:38→20:09)
[2022-02-02] MEDS: Glucosamine/Chondroitin CAP 1 CAP PO ×2 (08:38→20:09)
[2022-02-02] MEDS: Sucralfate 1 GM TAB PO ×4 (08:38→23:15)
[2022-02-02] MEDS: Calcium 600mg/Vit D 200U TAB 1 TAB PO ×2 (08:38→20:09)
[2022-02-02] MEDS: Divalproex 125 MG TABEC PO ×2 (08:38→20:09)
[2022-02-02] MEDS: Potassium Chloride 20 MEQ TABCR PO ×3 (08:38→20:09)
[2022-02-02] MEDS: Multivitamin TAB 1 TAB PO (08:39)
[2022-02-02] MEDS: Aspirin 81 MG CHEW PO (08:39)
[2022-02-02] MEDS: Pantoprazole 40 MG TABCR PO ×2 (08:39→20:10)
[2022-02-02] MEDS: guaiFENesin 600 MG TABCR PO (08:40)
[2022-02-02] MEDS: Furosemide 40 MG/4 ML VIAL IVP ×2 (08:41→16:42)
[2022-02-02] MEDS: Spironolactone 25 MG TAB PO (08:41)
[2022-02-02] MEDS: Heparin 5,000 UNITS/ML VIAL 5000 UNITS SC ×2 (08:41→20:15)
[2022-02-02] MEDS: AZITHROMYCIN 500 MG in Normal Saline 250 ML 250 MG IVPB (09:05)
[2022-02-02] MEDS: Nystatin POWDER 60 GM JAR TP ×3 (09:24→20:16)
--- NOTE | 2022-02-02 12:15 | PT.INTREAT ---
PT Notes Visit Reasons: Sepsis Syndrome, Dehydration, Cellulitis, PNA Inpatient Physical Therapy Treatment Note [facility] Date: 02/02/22 SUBJECTIVE: Margaux states that she is very tired today. C/o being itchy all over, but mostly right LE. OBJECTIVE: [] BED MOBILITY/TRANSFERS pt sitting in recliner. Sit-stand: CGA Stand-sit: CGA GAIT Assistive Device: FWW Weight bearing: AT Assist: SBA/CGA Distance: approx 40'x2 Deviation: wc to follow, 1 sitting rest x 2min. Decreased chino and stride length VITALS: O2 sat 94% during amb. THEREX: basic chair ex for global LE strengthening. LAQ, hip flex, hip ab/add and heel slides as well as AP x 10-15 ea. ASSESSMENT: tolerated session well despite c/o fatigue. PLAN: continue with strength and endurance. Progressing functional mobility per PT POC. TREATMENT CODE/TIME: 25 min [id number], [id number]
[2022-02-02] MEDS: Acetaminophen 500 MG TAB 1000 MG PO (15:09)
[2022-02-02 16:15] LABS: Streptococcus Pneumoniae Ag, U Negative (Negative)
--- NOTE | 2022-02-02 16:37 | W.PM.PROGNOT ---
Date of Service Date of service: 02/02/22 Time of Service: 16:37 Assessment and Plan Assessment and plan (1) Cellulitis of leg, right: Status: Acute Assessment and plan: Patient presented with sepsis syndrome on admission requiring vasopressors and IV fluids. She initially had EDUARDO and acute transaminitis all of which have resolved. Her right leg cellulitis appears to be improving. Initial CT scan of the right lower extremity showed no abscess and no evidence of osteomyelitis on her CT scan. Her inflammatory markers are finally starting to resolve. Initially her procalcitonin was 16 and then dropped down to 0.8 and the latest level today is 0.2. Her CRP initially was 19 and then peaked at 24 and is now down to 8. ESR remains elevated at 88. Her WBCs have normalized at 9200 after peaking at 15,800. Patient currently is on Zosyn and vancomycin. MRSA screen is pending. Blood cultures of all been negative.. Professional time spent interviewing and examining patient, discussion of goals of care with hospital team (care management, nursing and consulting professionals) was 20 minutes. (2) Heme + stool: Status: Acute Assessment and plan: Increase Protonix to twice a day, Carafate added to her regimen. Monitor H&H. Hemoglobin has been drifting downward. We will type and screen her. If her hemoglobin drops below 8 g we will transfuse her (3) Hypokalemia: Status: Resolved Assessment and plan: cont. oral replacment while she remains on iv lasix. spironolactone was added yesterday. 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 (5) Alzheimer disease: Status: Chronic Assessment and plan: continue Namenda; now on low dose Remeron which she seems to be tolerating better than the Zyprexa (6) DVT prophylaxis: Status: Acute Assessment and plan: SC heparin (7) Discharge planning issues: Status: Acute Assessment and plan: DNR/DNI Palliative care consulted. Home with caretakers when ready. Subjective Subjective Interval history since last seen: Margaux has no acute complaints. Denies any dyspnea or pain. She is diuresing well. Has helton catheter in place. urine output 1900 yesterday and 2300 so far today. She was put on iv lasix yesterday d/t hypervolemia related to her intial resuscitation from her sepsis. Her right leg edema is improving. Exam Narrative Exam Narrative: Obese white female sitting up in her chair, she is alert and oriented to person/place/circumstances LUngs: still w/ diffuse bilateral rale Heart: regular w/ harsh systolic murmur; no rub or gallop Abdomen: obese, soft, nontender w/ normal bowel sounds Legs: RLE the edema has gone down from 4+ to 3+ and the redness is receding in the tibia; hopefully w/ further diuresis the weeping from the wound will improve; left leg w/ no significant edema Urine draining clear yellow urine from her helton Objective Last Vital Signs Temp 38.4 C H 02/02/22 15:09 Pulse 86 02/02/22 16:10 Resp 16 02/02/22 16:10 BP 98/66 L 02/02/22 14:49 Pulse Ox 97 02/02/22 16:10 Laboratory Results - last 24 hr 02/01/22 02/02/22 02/02/22 16:15 07:13 07:13 Sodium 143 Potassium 3.7 3.4 L Chloride 108 H Carbon Dioxide 30.4 Anion Gap 4.6 BUN 13 Creatinine 0.8 Est GFR (CKD-EPI 2020) 73.06 Glucose 86 Calcium 8.0 L NT-Pro-B Natriuret Pep 1170 H Patient ABO/Rh O Negative Antibody Screen NEGATIVE
[2022-02-02] MEDS: Lactobacillus Acidophilus CAP 1 CAP PO (20:09)
[2022-02-02] MEDS: Mirtazapine 15 MG TAB 7.5 MG PO (20:10)
[2022-02-03] VITALS (10 sets, daily range): BP systolic 109–117; BP diastolic 68–71; PULSE 89–100; RESP 1–24; TEMP 37.2–38.1; O2SAT 90–93
[2022-02-03] MEDS: Normal Saline Flush 10 ML SYR IVP ×2 (00:21→09:48)
[2022-02-03 03:25] LABS: Vancomycin, Trough 16.5 ug/mL (10.0-20.0)
[2022-02-03] MEDS: VANCOMYCIN/WATER (PEG) 1 GM/200 ML BAG IVPB (04:52)
[2022-02-03] MEDS: PIPERACILLIN/TAZO 3.375 GM in Normal Saline 50 ML IVPB (06:35)
[2022-02-03 06:49] LABS: Abs Immature Grans 0.06 10^3/uL (0.0-0.06); Absolute Basophil Count 0.12 10^3/uL (0.0-0.2); Absolute Eosinophil Count 0.64 10^3/uL (0.0-0.7); Absolute Lymphocyte Count 1.43 10^3/uL (1.2-3.4); Absolute Neutrophil Count 5.86 10^3/uL (1.2-6.7); Basophils % 1.3; Eosinophils % 7.2; HCT 28.2 % (36.0-46.0); HGB 8.9 g/dL (11.2-15.7); Immature Grans % 0.7; MCH 29.1 pg (27.0-33.0); MCHC 31.6 % (32.0-36.0); MCV 92 fL (80-95); MPV 9.8 fL (8.0-11.0); Neutrophils % 65.8; Platelet Count 532 10^3/uL (130-400); RBC 3.06 10^6/uL (3.93-5.22); RDW 16.4 % (11.7-14.6); RDW-SD 55.8 fL; WBC 8.91 10^3/uL (4.4-10.8)
[2022-02-03 07:18] LABS: Anion Gap 3.6 mmol/L (3-11); BUN 15 mg/dL (7-18); C-Reactive Protein 6.81 mg/dL (0.0-0.3); CO2 33.4 mmol/L (21.0-32.0); CREATININE 0.9 mg/dL (0.55-1.02); Calcium 8.3 mg/dL (8.5-10.1); Chloride 106 mmol/L (98-107); Estimated GFR 63.43 (mL/min/1.73m2); Glucose 88 mg/dL (74-106); Magnesium 1.7 mg/dL (1.8-2.4); NT-proBNP 808 pg/mL (<300); Potassium 3.4 mmol/L (3.5-5.1); Sodium 143 mmol/L (136-145)
[2022-02-03 07:43] LABS: Procalcitonin 0.1 ng/mL
--- NOTE | 2022-02-03 08:06 | W.PALLCONSUL ---
Date of service: 02/03/22 Time of Service: 08:06 History of Present Illness History of Present Illness Chief Complaint: Cellulitis Narrative: Margaux is an 81-year-old woman with Alzheimer's. She developed a cellulitis and became dehydrated. Due to her respiratory failure and hypotension she was moved to the ICU. She is now out on MedSurg floor. She is a ayaan lady who plans to move with her son rooms to [place] when she leaves the hospital. She tried to give me details of how she got here but she was quite uncertain about many of these. Consults Consult date: 02/03/22 Requesting physician: Betina Seth Assessment and Plan Assessment and plan (1) Alzheimer disease: Status: Chronic (2) Respiratory failure with hypoxia: Status: Resolved (3) Acute kidney injury: Status: Acute (4) Heme + stool: Status: Acute (5) Palliative care status: Status: Acute Assessment and plan: Overall Margaux is improving. Per nursing she is more lucid than what she had been. She understands that Alvaro is her go to person for information. Her plan is to go to [place] with Alvaro. CODE STATUS is a bit confusing. Dr. Can addressed this at his first meeting. He spoke to Alvaro at [phone]. Alvaro at that time said that his mother should be resuscitated but if after a couple of days she is not improved then he would be in favor of withdrawing life support. Several notes are still documenting that she is a DNR/DNI. I have called Alvaro myself this morning and left a message and will try back. She initially was a DNR/DNI but then switched to a full code but I could not find documentation other than her emergency room discussion regarding this. I do not feel that Margaux has capacity to make this decision Addendum: I did speak with Alvaro at the above number. We discussed how many people survive CPR and what specifically CPR is. He also said if its not successful after a few days, she would want to be disconnected. The medical record reflects that she is a FULL Code Review of Systems Narrative: She was a bit confused but now is that she wants her son Alvaro to make decisions for her. She states that she is coming along very well. And everyone treats her nicely. She did not have any chest pain, trouble breathing, she definitely has problems with ambulation. 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 (Acute) Septic shock (Acute) Sepsis syndrome (Acute) Acute dehydration (Acute) Multiple fractures of ribs of right side (Acute) Cellulitis of leg, right (Acute) Pneumonia (Acute) Hyperlipidemia (Acute) ZHANG (dyspnea on exertion) (Acute) Acquired bilateral flat feet (Acute) Left rotator cuff tear arthropathy (Chronic) 80mg Depo-Medrol injection: 08/08/2020, 12/12/2020, 03/27/2021 Left shoulder pain (Acute) Facial basal cell cancer (Acute) Medical History Anemia ASCENDING COLON AVM Basal cell carcinoma of nose BREAST CANCER LEFT Diverticulosis Edema LIMB Foot deformity Hallux valgus Heart murmur SYSTOLIC Heartburn Hip pain, left Macular degeneration Mild memory disturbance Obesity Osteoarthritis of both hands Osteopenia Skin lesion TUBULAR ADENOMAS Uterine prolapse CONGENITAL BODY ASYMMETRY Surgical History Abdominal hysterectomy (~10/2011) PARTIAL Breast, Lumpectomy (12/09/09) LEFT Colonoscopy - IV Sedation (11/19/09) Hx of total knee replacement BILATERAL Recurrent major depression in partial remission (11/19/09) ASCENDING COLON AVM Family History Mother Alzheimer's disease Father Heart disease Lung cancer Sister Cirrhosis of liver Brother Acute myocardial infarction at 58 of AL Brother Diabetes Heart disease AL Brother Heart disease Stroke Son Heart disease age 40 AL with stents Social History Smoking/Tobacco Use Status: Never Smoking risk assessment performed?: Yes Alcohol Intake: current Alcohol Intake frequency: 0-2 drinks per day Drug use: Never Substance use type: does not use Household members: none Current gender identity: female What type of physical activity do you participate in: none Do you feel safe at home: Yes Exam Narrative Exam Narrative: Margaux is a ayaan 81-year-old woman. No acute distress. She understands the important things i.e. who is going to make decisions for her and where she will go after the hospital. She could not name this hospital. She could not name why she was here which she knew she must of been sick because it was the hospital. Her heart was regular with a 2/6 to 3/6 systolic murmur. Lungs pretty poor aeration and a few crackles but generally okay. I did not take down the bandage on the right leg. Her mood was good. Results Last Vital Signs Temp 99.0 F 02/03/22 07:06 Pulse 94 H 02/03/22 07:06 Resp 24 02/03/22 07:06 BP 110/71 02/03/22 07:06 Pulse Ox 91 L 02/03/22 07:06 Patient Name: Margaux Zamora Unit #: [id number] Loc: MS ? Ordering Provider:? Ko Crowder M.D. Status: ADM IN ? Primary Care Provider: Jeanne Mosqueda M.D. Date of Exam: 01/31/22 Sex: F ? : 1940 Age: 81 ? Exam(s) a CT:CT chest wo Exam(s) CT CHEST WO EXAM: ? CT CHEST WO CLINICAL HISTORY:? pneumonia ? TECHNIQUE:? Imaging Protocol: Axial computed tomography images with coronal and sagittal reformatted images were created and reviewed CONTRAST MATERIAL:? Noncontrast. COMPARISON:? CR,XR XR PORTABLE CHEST AP from 01/30/2022 FINDINGS: Exam is significantly limited by patient motion.? Tracheobronchial tree: No bronchiectasis or mucous plugging.? Mediastinum and Franchesca: No dominant adenopathy or fluid collection. Pulmonary parenchyma: Limited evaluation due to significant motion..? No dominant measurable mass or consolidation..? Pleura: Small bilateral pleural effusions, right greater than left..? No pneumothorax. Heart: The heart is mildly dilated.? Moderate coronary artery calcifications are seen. Aorta: Thoracic aorta non-dilated. Atherosclerotic changes.? Tortuous distally. Upper abdomen:? Unremarkable. Lymph nodes: Within normal limits. Bones: ? Degenerative changes in the spine and shoulders..? Soft tissues: Unremarkable.? IMPRESSION: Cardiomegaly and small bilateral pleural effusions.? No focal infiltrate. Labs Result diagrams: 02/03/22 06:23 02/03/22 06:23 Labs: Laboratory Results - last 24 hr 02/02/22 02/02/22 02/03/22 07:13 07:13 02:58 WBC RBC Hgb Hct MCV MCH MCHC RDW Plt Count MPV Immature Gran % Neutrophils % Lymphocytes % Monocytes % Eosinophils % Basophils % Nucleated RBC % Absolute Neutrophils Absolute Lymphocytes Absolute Monocytes Absolute Eosinophils Absolute Basophils Sodium 143 Potassium 3.4 L Chloride 108 H Carbon Dioxide 30.4 Anion Gap 4.6 BUN 13 Creatinine 0.8 Est GFR (CKD-EPI 2020) 73.06 Glucose 86 Calcium 8.0 L Magnesium C-Reactive Protein NT-Pro-B Natriuret Pep 1170 H Procalcitonin Vancomycin Trough 16.5 Patient ABO/Rh O Negative Antibody Screen NEGATIVE 02/03/22 02/03/22 02/03/22 06:23 06:23 06:23 WBC 8.91 RBC 3.06 L Hgb 8.9 L Hct 28.2 L MCV 92 MCH 29.1 MCHC 31.6 L RDW 16.4 H Plt Count 532 H MPV 9.8 Immature Gran % 0.7 Neutrophils % 65.8 Lymphocytes % 16.0 Monocytes % 9.0 Eosinophils % 7.2 Basophils % 1.3 Nucleated RBC % 0.0 Absolute Neutrophils 5.86 Absolute Lymphocytes 1.43 Absolute Monocytes 0.80 Absolute Eosinophils 0.64 Absolute Basophils 0.12 Sodium 143 Potassium 3.4 L Chloride 106 Carbon Dioxide 33.4 H Anion Gap 3.6 BUN 15 Creatinine 0.9 Est GFR (CKD-EPI 2020) 63.43 Glucose 88 Calcium 8.3 L Magnesium 1.7 L C-Reactive Protein 6.81 H NT-Pro-B Natriuret Pep 808 H Procalcitonin 0.1 Vancomycin Trough Patient ABO/Rh Antibody Screen
[2022-02-03] MEDS: Levalbuterol 0.63 MG/3 ML UPD VIAL UPD ×4 (08:09→19:55)
[2022-02-03] MEDS: Furosemide 40 MG/4 ML VIAL IVP (08:49)
[2022-02-03] MEDS: Potassium Chloride 20 MEQ TABCR PO ×3 (08:49→19:54)
[2022-02-03] MEDS: Heparin 5,000 UNITS/ML VIAL 5000 UNITS SC ×2 (08:49→19:56)
[2022-02-03] MEDS: guaiFENesin 600 MG TABCR PO ×2 (08:50→19:54)
[2022-02-03] MEDS: Sucralfate 1 GM TAB PO ×4 (08:50→23:10)
[2022-02-03] MEDS: Pantoprazole 40 MG TABCR PO ×2 (08:51→19:55)
[2022-02-03] MEDS: Aspirin 81 MG CHEW PO (08:51)
[2022-02-03] MEDS: Multivitamin TAB 1 TAB PO (08:51)
[2022-02-03] MEDS: Memantine 5 MG TAB PO ×2 (08:51→19:54)
[2022-02-03] MEDS: Spironolactone 25 MG TAB PO (08:51)
[2022-02-03] MEDS: Protein Nutritional Supplement 16 GM 1 OUNCE PACKET PO ×3 (08:52→19:53)
[2022-02-03] MEDS: Nystatin POWDER 60 GM JAR TP ×3 (08:52→19:55)
[2022-02-03] MEDS: Lactobacillus Acidophilus CAP 1 CAP PO ×2 (08:53→19:54)
[2022-02-03] MEDS: Calcium 600mg/Vit D 200U TAB 1 TAB PO ×2 (08:53→19:54)
[2022-02-03] MEDS: Divalproex 125 MG TABEC PO ×2 (08:53→19:54)
[2022-02-03] MEDS: Glucosamine/Chondroitin CAP 1 CAP PO ×2 (08:53→19:54)
--- NOTE | 2022-02-03 08:53 | PDOC.CMPRO ---
- If Service Date Differs Date of service: 02/03/22 Time of Service: 08:53 Care Management Progress Note S/O: Margaux is sitting in her recliner chair with her legs elevated. Her son is visiting and he notes that her feet are still quite swollen and he is concerned with her ability to ambulate when Margaux is discharged to his care. Per MD, Margaux will likely be medically ready for discharge tomorrow. At this time, family feels that additional rehab is needed, as they no longer fee comfortable taking pt back to their home in [place] due to her mobility level and edema. CM faxed SNF referral's locally and to [facility] in [place]. Margaux is being transitioned to PO ABX and speech therapy is ordered. Palliative is following, pt remains a full code. CM continues to support discharge planning. A: 81 year old female admitted to [facility] 01/22/22 Sepsis syndrome, Respiratory failure with hypoxia and right leg Cellulitis P: Discharge to SNF for STR, then relocate to [place] to stay with her son, Alvaro and his . SNF referral's are faxed locally and to [facility] in [place]. Per pts MAITE Mccoy, she works with Dr. Roddy Holm at [facility] and he agrees to follow Margaux's VNA orders, when she does discharge to their home. CM continues to follow. [facility] Dr. Roddy Holm T- Fax-
--- NOTE | 2022-02-03 09:10 | PT.INPN ---
Date of service: 02/03/22 Time of Service: 09:10 PT Notes Visit Reasons: Sepsis Syndrome, Dehydration, Cellulitis, PNA Physical Therapy Inpatient Progress Note Date: 02/03/2022 Referring Doctor: Janet Bill NP PT Orders: PT CONSULT: Eval/treat Precautions: Fall. Standard. Activity as tolerated. Patient Profile/Admitting Diagnosis:? Margaux is an 81-year-old female who presented to the ED on 01/22/2022 due to increasing confusion.? She is diagnosed with sepsis syndrome, cellulitis of right leg, pneumonia, acute dehydration, diarrhea, transaminitis, rhabdomyolysis, hypovolemic shock, respiratory failure with hypoxia, acute kidney injury, and pulmonary edema. Social History/Home Situation: Lives alone in a praivte home in [place], [place].? Plans to be at son's home in [place] in the coming week or so.? Independent inside home without AD.? Occasionally uses a SPC outdoors.? Has no orthopedic shoes for bilateral foot deformity. Equipment Owned/DME: SPC, 4WW Subjective: Complains of numbness and itchiness in R leg. Reported momentary dizziness when she stood up from chair. Objective: General Observation: Seated on chair. Vila catheter in place. Erythema and swelling in R leg.? Bilateral foot deformity noted. IV through L UE. Mental Status: Alert and oriented as to person and place. Able to follow single-tep commands. Pain: Deneis Vital Signs: WNL as closley monitored via tele ROM: Right Upper Extremity: ? Shoulder Flexion allows up to 90 degrees. Shoulder abduction allows up to 90 degrees. Elbow flexion WFL. Wrist flexion WFL. Functional opening and closing of hand WFL. Left Upper Extremity: Shoulder Flexion allows up to 90 degrees. Shoulder abduction allows up to 90 degrees. Elbow flexion WFL. Wrist flexion WFL. Functional opening and closing of hand WFL. Right Lower Extremity: Hip flexion WFL. Hip abduction WFL. Knee flexion 20 degrees to 90 degrees.? Knee extension -20 degrees.? Ankle dorsiflexion absent. Ankle plantarflexion about 10 degrees. Left Lower Extremity: Hip flexion WFL. Hip abduction WFL. Knee flexion 20 degrees to 90 degrees.? Knee extension -20 degrees.? Ankle dorsiflexion absent. Ankle plantarflexion about 10 degrees. Strength: Right Upper Extremity: Shoulder flexors 3-/5. Shoulder abductors 3-/5. Elbow flexors 4-/5. Elbow extensors 4-/5. Community Health Nurse Staff strong. Left Upper Extremity: Shoulder flexors 3-/5. Shoulder abductors 3-/5. Elbow flexors 4-/5. Elbow extensors 4-/5. Community Health Nurse Staff strong. Right Lower Extremity: Hip flexors 4-/5. Hip abductors 4-/5. Knee flexors 3-/5. Knee extensors 3-/5. Ankle dorsiflexors 3-/5. Ankle plantarflexors 3-/5. Left Lower Extremity: Hip flexors 4-/5. Hip abductors 4-/5. Knee flexors 3-/5. Knee extensors 3-/5. Ankle dorsiflexors 3-/5. Ankle plantarflexors 3-/5. Bed Mobility/Transfers: Sit to stand contact guard assist Stand to sit standby assist with FWW Bed to reclining chair with standby assist with FWW Reclining chair to bed with standby assist with FWW THERA EX: Seated hip abduction x 10 Chest expansion exercises with DBE x 5 LAQ x 10 Chest expansion exercises with DBE x 5 Seated marches x 10 Chest expansion exercises with DBE x 5 Ankle DF/PF Gait: Instructed patient with level surface ambulation of 25 feet requiring stand by assist. Mabel decreased. Step height decreased. Step length decreased.? No DF in B legs.? No report of increased pain. Wheelchair follow needed. BP after walking 112/65 mmHg and HR 98 bpm. Balance: Static Sitting: Good Dynamic Sitting: Fair Static Standing: Fair Dynamic Standing: Fair Special Tests: Mobility Limitations Standardized Measure [facility] 6 clicks Basic Mobility Inpatient Short Form: Raw Score: 20? CMS Score: 36% deficit? ? ? Informed Consent/Education:? Patient was instructed in purpose of PT consult and plan of care. Agreeable to continue with established PT POC to achieve personal goals. Assessment: Swelling and redness diminishing. Reports numbness in R leg that did not subsude with ambulation. Continues to be fatigued.Patient presents with clinical signs and symptoms consistent with current/admitting diagnoses that have resulted to mobility limitations, gait instability, generalized weakness, and overall ADL decline as demonstrated by the following impairment level findings: 1.? Decreased strength to B UE/LE major muscle groups 2.? Impaired sitting/standing balance 3.? Impaired activity tolerance 4.? Limitation of joint range of motion in B shoulder,? B hips, and B knees 5.? Erythema (decreasing) to R leg due to cellulitis 6.? Swelling (decreasing)? in R leg due to cellulitis 7.? Chronic bilateral foot deformity 8. Dizziness Impairments are contributing to the following functional limitations: 1.? Decline in bed mobility skills 2.? Decline in transfer skills 3.? Difficulty with ambulation without assistive device and physical assistance 4.? Increased completion time for mobility ADL performance 5.? Increased risk for falls 6.? Difficulty with managing steps alone safely Patient is assessed as a 27605 moderate complexity based on the following: History: 81-year-old female with past medical history as indicated above Examination: Demonstrable impairment in strength, balance, and mobility level with underlying impairments and functional limitations as exhibited above as well as deficit score of 36% utilizing the [facility] Mobility Inpatient Short Form Presentation: Evolving Decision Makin moderate complexity Goals: Goals X1 week 1. Supine-Sit independent NOT MET, CONTINUE 2. Sit-Supine independent NOT MET, CONTINUE 3. Sit-Stand independent NOT MET, CONTINUE 4. Stand-Sit independent with FWW NOT MET, CONTINUE 5. Bed-Chair independent with FWW NOT MET, CONTINUE 6. Chair-Bed independent with FWW NOT MET, CONTINUE 7. Independent gait on level surface with use of FWW for at least 100 feet without report of pain nor dyspnea NOT MET, CONTINUE 8. Independent stair negotiation while holding onto B rails for at least 3 steps without report of pain nor dyspnea NOT MET, CONTINUE 9. Independent with home exercise program NOT MET, CONTINUE 10. Good static and dynamic standing balance/tolerance NOT MET, CONTINUE Plan of Care/Treatment Plan: 1-2x/day, 7 days/week x 1 week. Plan of care has been reviewed with the CEO & FOUNDER providing the service under Physical Therapy direction. Initiate Physical Therapy intervention for pain management as needed, strengthening, bed mobility, transfers, gait, stairs, balance training, and use of assistive device. DISCHARGE RECOMMENDATIONS: [] ? Home with no services [] [X] ? Home with services.? Patient will benefit from home health PT services in order to progress mobility level using least restrictive assistive ambulatory device, assess home safety, identify additional equipment needs, and establish a functional maintenance program that will increase ability of patient to remain at home. [] ? Home with outpatient PT [] [] ? SNF for continued rehabilitation [] [] ? Intermediate Care [] [] ? SNF versus LTC based on ability to participate and progress [] TREATMENT CODE/TIME: 89472 x 16 minutes, 17108 x 15 beginning at 9:10 AM. Thank you for the opportunity to participate in the care of this patient. Andreina Busch PT, DPT, CLT [facility] [place], [place]
[2022-02-03] MEDS: AZITHROMYCIN 500 MG in Normal Saline 250 ML 250 MG IVPB (09:48)
--- NOTE | 2022-02-03 11:35 | PDOC.STREC ---
Date of service: 02/03/22 Time of Service: 11:35 Speech Therapy Recommendations Report ST Recommendations: Non-treatment note Patient medical status improving, will be ready for discharge home with family within a day. Per Nursing, patient has tolerated current diet well and now without increased dyspnea during meals - ok to upgrade diet - patient reports baseline diet is most consistent with IDDSI LEVEL 6 soft/bite size and IDDSI LEVEL 0 thin liquids. Diet Texture Modification(s): IDDSI Level(s) SOLIDS 6-Soft/Bite size LIQUIDS 0-Thin Liquids Medication Intake: Whole with 0-Thin Liquids or 4-Extremely Thick Liquids RISK MANAGEMENT: HOB upright as tolerated; upright for all PO intake. Encourage physical mobility as tolerated. Oral hygiene BID/2x per day & before/after PO intake, using friction with toothbrush on all oral structures as tolerated, suction PRN Level of Assistance/Supervision: Intermittent supervision and provide reminders to take small sips Strategies/Adaptations/Assistive Equipment: Reduce auditory and/or visual distractions when eating Provide verbal and/or visual cues to use recommended strategies Small sips and bites when eating Slow rate of intake Posture/Positioning Needs: Maintain upright position at least 30 minutes after meals Coding
[2022-02-03] MEDS: Sulfameth/Trimeth DS TAB 1 TAB PO (12:02)
[2022-02-03] MEDS: Amoxicillin 875/Clav. 125 TAB PO ×2 (12:02→19:54)
--- NOTE | 2022-02-03 14:11 | W.PM.PROGNOT ---
Date of Service Date of service: 02/03/22 Time of Service: 14:11 Assessment and Plan Assessment and plan (1) Cellulitis of leg, right: Status: Acute Assessment and plan: Patient's right leg is improving, the erythema has been receding and she has no pain. Her inflammatory markers (WBC 8900, CRP 6.8, procalcitonin 0.1) are all improving. I will dc her iv vancomycin and zosyn in favor of Augmentin. Her MRSA screen was negative. Professional time spent interviewing and examining patient, discussion of goals of care with hospital team (care management, nursing and consulting professionals) was 20 minutes. (2) Heme + stool: Status: Acute Assessment and plan: Increase Protonix to twice a day, Carafate added to her regimen. Monitor H&H. Hemoglobin has been drifting downward. We will type and screen her. If her hemoglobin drops below 8 g we will transfuse her (3) Hypokalemia: Status: Resolved Assessment and plan: cont. oral replacment while she remains on iv lasix. spironolactone was added yesterday. 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 (5) Alzheimer disease: Status: Chronic Assessment and plan: continue Namenda; now on low dose Remeron which she seems to be tolerating better than the Zyprexa (6) DVT prophylaxis: Status: Acute Assessment and plan: SC heparin (7) Discharge planning issues: Status: Acute Assessment and plan: Patient's code status is FULL CODE. Apparently on admission Dr. Can, ED, provider had this discussion w/ the patient's son however, an advanced directive had been scanned into the patient's chart indicating she was a DNR/DNI however, this turned out to be the wrong advanced directive and was that of another patient. Nursing and Dr. León have corrected this mistake and it has been confirmed that the patient is a full code, although her son has indicated that in the event she has to go on prolonged life support she would not want to continue this. Palliative care consulted. Home with caretakers when ready. I think that she should be ready for discharge tomorrow. Her infection seems to be clearing up. All of her inflammatory markers have improved. I will change her to oral antibiotics Subjective Subjective Interval history since last seen: Margaux offers no complaints. Denies any dyspnea or pain. Exam Narrative Exam Narrative: Margaux is sitting up in her chair. She had her eyes closed when I approached her but she awakens easily. No respiratory discomfort Lungs: some bibasilar rales; no rhonchi or wheezing Heart: regular w/ loud holosystolic murmur over LLSB Abdomen: soft, nontender Extremities: trace edema in left lower leg; 2+ to 3+ edema in RLE, area of erythema continues to recede. Objective Last Vital Signs Temp 37.2 C 02/03/22 07:06 Pulse 97 H 02/03/22 08:09 Resp 24 02/03/22 07:06 BP 110/71 02/03/22 07:06 Pulse Ox 90 L 02/03/22 08:09 Laboratory Results - last 24 hr 01/31/22 02/03/22 02/03/22 09:31 02:58 06:23 WBC RBC Hgb Hct MCV MCH MCHC RDW Plt Count MPV Immature Gran % Neutrophils % Lymphocytes % Monocytes % Eosinophils % Basophils % Nucleated RBC % Absolute Neutrophils Absolute Lymphocytes Absolute Monocytes Absolute Eosinophils Absolute Basophils Sodium 143 Potassium 3.4 L Chloride 106 Carbon Dioxide 33.4 H Anion Gap 3.6 BUN 15 Creatinine 0.9 Est GFR (CKD-EPI 2020) 63.43 Glucose 88 Calcium 8.3 L Magnesium 1.7 L C-Reactive Protein 6.81 H NT-Pro-B Natriuret Pep 808 H Procalcitonin Vancomycin Trough 16.5 Ur Strep pneumoniae Ag Negative 02/03/22 02/03/22 06:23 06:23 WBC 8.91 RBC 3.06 L Hgb 8.9 L Hct 28.2 L MCV 92 MCH 29.1 MCHC 31.6 L RDW 16.4 H Plt Count 532 H MPV 9.8 Immature Gran % 0.7 Neutrophils % 65.8 Lymphocytes % 16.0 Monocytes % 9.0 Eosinophils % 7.2 Basophils % 1.3 Nucleated RBC % 0.0 Absolute Neutrophils 5.86 Absolute Lymphocytes 1.43 Absolute Monocytes 0.80 Absolute Eosinophils 0.64 Absolute Basophils 0.12 Sodium Potassium Chloride Carbon Dioxide Anion Gap BUN Creatinine Est GFR (CKD-EPI 2020) Glucose Calcium Magnesium C-Reactive Protein NT-Pro-B Natriuret Pep Procalcitonin 0.1 Vancomycin Trough Ur Strep pneumoniae Ag
--- NOTE | 2022-02-03 14:33 | PT.INTREAT ---
Date of service: 02/03/22 Time of Service: 13:25 PT Notes Visit Reasons: Sepsis Syndrome, Dehydration, Cellulitis, PNA Inpatient Physical Therapy Treatment Note [facility] Date: 02/03/2022 PRECAUTIONS: Fall, activity as tolerated, confusion SUBJECTIVE: Margaux is pleasant and agreeable to participating in PT. She reports that she is feeling better today. Her son is present during session, and he indicates that he feels his mother would benefit from short-term rehab prior to relocating to his home in [place]. OBJECTIVE: PAIN: No c/o pain BED MOBILITY/TRANSFERS Sit-supine: Mod A with HOB flat Supine-sit: CGA with HOB flat Sit-stand: SBA Stand-sit: SBA GAIT Assistive Device: FWW Weight bearing: Full Assist: CGA - SBA Distance: 30' Deviation: Increased fatigue, SOB, standing rest x3, cueing for FWW management THEREX: Patient was instructed in a seated LE strengthening program, to include: ankle pumps, LAQ, hip flexion and hip abduction. ASSESSMENT: Patient continues to demonstrate global weakness, however, she was able to tolerate a progression in gait distance with FWW support and CGA - SBA. She demonstrates SOB with all activity. PLAN: Continue with global strengthening and general conditioning for improved activity tolerance and mobility. TREATMENT CODE/TIME: 23 minutes; 10437, 53103 (13:25)
[2022-02-03] MEDS: Furosemide 40 MG TAB PO (15:33)
[2022-02-03] MEDS: Acetaminophen 500 MG TAB 1000 MG PO (15:33)
[2022-02-03] MEDS: Mirtazapine 15 MG TAB 7.5 MG PO (19:55)
[2022-02-04 07:32] VITALS: BP 133/78; PULSE 99; RESP 26; TEMP 37.4; O2SAT 92
[2022-02-04] MEDS: Protein Nutritional Supplement 16 GM 1 OUNCE PACKET PO (08:28)
[2022-02-04] MEDS: Memantine 5 MG TAB PO (08:29)
[2022-02-04] MEDS: Multivitamin TAB 1 TAB PO (08:29)
[2022-02-04] MEDS: Glucosamine/Chondroitin CAP 1 CAP PO (08:29)
[2022-02-04] MEDS: Divalproex 125 MG TABEC PO (08:29)
[2022-02-04] MEDS: Aspirin 81 MG CHEW PO (08:29)
[2022-02-04] MEDS: Calcium 600mg/Vit D 200U TAB 1 TAB PO (08:29)
[2022-02-04] MEDS: Furosemide 40 MG TAB PO (08:29)
[2022-02-04] MEDS: Sucralfate 1 GM TAB PO ×2 (08:29→11:52)
[2022-02-04] MEDS: Potassium Chloride 20 MEQ TABCR PO (08:29)
[2022-02-04] MEDS: Lactobacillus Acidophilus CAP 1 CAP PO (08:30)
[2022-02-04] MEDS: Pantoprazole 40 MG TABCR PO (08:30)
[2022-02-04] MEDS: Spironolactone 25 MG TAB PO (08:30)
[2022-02-04] MEDS: guaiFENesin 600 MG TABCR PO (08:30)
[2022-02-04] MEDS: Heparin 5,000 UNITS/ML VIAL 5000 UNITS SC (08:30)
[2022-02-04] MEDS: Nystatin POWDER 60 GM JAR TP (08:31)
[2022-02-04] MEDS: Amoxicillin 875/Clav. 125 TAB PO (08:32)
[2022-02-04 08:46] VITALS: PULSE 101; RESP 1; O2SAT 94
[2022-02-04] MEDS: Levalbuterol 0.63 MG/3 ML UPD VIAL UPD ×2 (08:46→12:36)
[2022-02-04 08:48] VITALS: RESP 1
[2022-02-04] MEDS: Sulfameth/Trimeth DS TAB 1 TAB PO (09:33)
--- NOTE | 2022-02-04 10:31 | CMPROGNOTE_ITS ---
- If Service Date Differs Date of service: 02/04/22 Time of Service: 10:31 Care Management Progress Note S/O: Margaux is sitting in her recliner chair with her legs elevated when CM met with her. Per MD report, patient's right leg is improving, as well as her inflammatory markers. Margaux is working with PT and continues to require SBA and cueing for FWW management. Patients son Alvaro indicated yesterday that he feels his mother would benefit from short-term rehab prior to relocating to his home in [place]. CM faxed SNF referral's locally and to [facility] in [place]. Unfortunately, there is no bed availability locally or at [facility]. Alternatively, if Margaux is medically ready for discharge Alvaro is willing to stay with his mom until she is strong enough to discharge to their home in [place]. Per Nadine, Margaux is unable to establish care with a PCP in [place] until next month so staying local for follow up appointments and [facility] support will be beneficial. New [facility] RN,PT,OT,CIGAR ROLLER will be ordered. In addition, CM reviewed LTM and the application process with family to support call box wirer planning considerations, if needed. At this time, the family is not interested in applying for LTM and considerations for correction placement at a shelter are not on the table. Per Nadine, the family prefers to support pt at home, but notes that she is concerned with the support Margaux may need for her incontinence. CM recommends the family purchase a bedside commode. [facility] CIGAR ROLLER will be ordered, to continue discussion of correction planning. Margaux is transitioned to PO ABX and her catheter is d/c'd. Palliative is following, pt remains a full code. CM continues to support discharge planning. A: 81 year old female admitted to [facility] 01/22/22 Sepsis syndrome, Respiratory failure with hypoxia and right leg Cellulitis P: Discharge to SNF for STR, then relocate to [place] to stay with her son, Alvaro and his . SNF referral's are faxed locally and to [facility] in [place]. Per pts MAITE Mccoy, she works with Dr. Roddy Holm at [facility] and he agrees to follow Margaux's VNA orders, when she does discharge to their home. CM continues to follow. [facility] Dr. Roddy Holm T- Fax-
[2022-02-04 12:36] VITALS: RESP 1
--- NOTE | 2022-02-04 12:51 | W.PM.DS.N ---
Date of service: 02/04/22 Time of Service: 12:52 DS: Diagnosis Discharge Diagnosis (1) Sepsis syndrome: Status: Acute Asessment and Plan: Patient is an 81-year-old female with a history of obesity, severe osteoarthritis with hallux deformities in her feet, history of colonic AVM, remote history of breast cancer, CVA who was brought into the emergency department by EMS on 01/22/2022 when a neighbor found her down on the floor confused. Upon arrival to the emergency department she was found to be hypotensive and tachycardic with a leukocytosis of 15,000 and an elevated procalcitonin of 16.5 with evidence of acute kidney injury with a BUN of 44 creatinine 2.0, and with evidence of rhabdomyolysis with a CK of 9900. Patient was given IV fluid boluses and required norepinephrine drip to stabilize her blood pressure. Blood cultures were obtained and patient was started on broad-spectrum antibiotics. Patient was clinically found to have evidence of pneumonia and cellulitis of her right leg. Right leg was asymmetrically swollen compared to the left leg. Diagnostic images on admission included chest x-ray CT scan of the head and CT scan of the abdomen pelvis and lower extremities. Head CT showed no acute intracranial process but she has evidence of an old left occipital/parietal infarct. Chest x-ray showed possible developing right-sided pneumonia in the mid lung zone. Right internal jugular catheter triple-lumen CVC was placed for fluid administration and vasopressors. Subsequent echocardiogram was performed the next day showed normal left ventricular size and function with ejection fraction 55% RV appeared to be mildly dilated. Study was of fair quality due to technical limits due to her body habitus. Patient had evidence of end-organ injury from her EDUARDO and rhabdomyolysis and sepsis elevated transaminases and elevated BUN/creatinine. Patient required IV fluid resuscitation and vasopressors. Patient was treated w/ vancomycin and zosyn. Patient did not require intubation or mechanical ventilation. Patient was successfully resuscitated and norepinephrine drip was weaned off. Patient exhibited delirium that was attributed to some underlying dementia w/ superimposed metabolic encephalopathy. Patient was treated w/ depakote and remeron. Multiple blood and urine cultures came back no growth. Vancomycin and Zosyn were discontinued transiently and she was put on doxycycline alone for her cellulits but deveoped fevers and worsening leukocytosis which necessitated resumption of Vancomycin and Zosyn. She developed hypervolemia from her fluid resuscitatoin and required diuresis. She was transitioned from iv lasix to oral lasix and spironolactone. Her parenteral antibiotic treatment has been transitioned to Bactrim and Augmentin for which she will continue on 10 more days. During her hospital stay she developed anemia and was found to have heme positive stools but because of her co-morbidities she was not deemed a candidate for any endoscopy and she was empirically placed on carafate and protonix. Repeat CBC should be done within the week and if she has further drops in her hemoglobin then transfusion would be appropriate. As for her renal and liver insufficiency this recovered well and she had returned to her baseline levels. (2) Acute kidney injury: Status: Acute (3) Cellulitis of leg, right: Status: Acute (4) Heme + stool: Status: Acute (5) Hypokalemia: Status: Resolved (6) Presence of total right knee joint prosthesis: Status: Acute (7) Alzheimer disease: Status: Chronic (8) Discharge planning issues: Status: Acute (9) Hypomagnesemia: Status: Acute (10) Hypovolemic shock: Status: Resolved (11) Transaminitis: Status: Resolved (12) Toxic metabolic encephalopathy: Status: Resolved (13) Rhabdomyolysis: Status: Resolved (14) Pneumonia: Status: Acute Discharge Plan Disposition Patient Disposition: Home W/Home Health Services Condition: Improving Discharge Details Reason For Visit: Sepsis Syndrome, Dehydration, Cellulitis, PNA Admit Date/Time: 01/22/22 22:39 Admit Provider: Roddy Montoya Attending Provider: Roddy Montoya Primary Care Provider: Jeanne Mosqueda V Home Meds and New Rx's Prescriptions: New amoxicillin-pot clavulanate 875-125 mg Tablet 1 tab PO BID Qty: 20 0RF furosemide 40 mg Tablet 40 mg PO BID@0830,1600 Qty: 60 0RF mirtazapine 15 mg Tablet 7.5 mg PO QPM Qty: 15 0RF nystatin 100,000 unit/gram Powder 1 applic topical BID Qty: 60 0RF sucralfate 1 gram Tablet 1 g PO AC & HS Qty: 120 0RF sulfamethoxazole-trimethoprim 800-160 mg Tablet 1 tab PO BID Qty: 20 0RF spironolactone 25 mg Tablet 25 mg PO DAILY Qty: 30 0RF potassium chloride 20 mEq Tablet,Er Particles/Crystals 20 meq PO DAILY Qty: 30 0RF pantoprazole 40 mg Tablet,Delayed Release (Dr/Ec) 40 mg PO HS Qty: 30 0RF magnesium 250 mg tablet 250 mg PO DAILY Qty: 30 0RF Continued biotin 10 mg tablet 10 mg PO DAILY multivitamin [Daily Vitamin] 1 EACH tablet 1 ea PO DAILY calcium carbonate-vitamin D3 [Calcium 600 with Vitamin D3] 1 EACH tablet 1 ea PO BID aspirin [Aspirin Low-Strength] 81 MG tablet,chewable 81 mg PO DAILY glucosamine-chondroitin [Osteo Bi-Flex] 1 EACH tablet 1 ea PO BID memantine 5 mg Tablet 5 mg PO BID Discontinued ferrous sulfate 325 mg (65 mg iron) tablet 325 mg PO DAILY furosemide [Lasix] 20 mg tablet 20 mg PO DAILY Qty: 90 3RF Rx Instructions: 1 daily as needed No Action (DME) Custom Accomodative Shoes Qty: 1 0RF Rx Instructions: Please fit and make bilateral accomodative shoes for extreme width of feet with collapse and medial prominence. Discharge Instructions Instructions: Cellulitis (DC), Sepsis (DC) Additional Instructions: Wound Care Recomendation Recomendation:: Right lower extremity. [place] open area with Anasept spray and allow to dwell for 2 minutes. Clean area with gauze, then pat dry. Apply Adaptic as a contact layer. Apply Optiloc to open areas to absorb drainage. Wrap with Kerlix. ? Use minimal tape to secure Kerlix. Change daily or PRN if soiled dislodged Referrals: Jeanne Mosqueda MD [Primary Care Provider] - (follow up in the next week) Activity:: Activity as Tolerated Equipment/Supplies:: No Equipment Needed Diet:: Low Sodium Discharge Orders Discharge Orders: Discharge Order (Routine); Ordered 02/04/22 Ordered By: Ko Crowder Other Ambulatory Orders: Basic Metabolic Panel (Routine) Timeframe: 1 Week Facility: [facility] - Location: Laboratory Outpatient - [facility] Ordered By: Ko Crowder Complete Blood Count w/Diff (Routine) Timeframe: 1 Week Facility: [facility] - Location: Laboratory Outpatient - [facility] Ordered By: Ko Crowder Magnesium (Routine) Timeframe: 1 Week Facility: [facility] - Location: Laboratory Outpatient - [facility] Ordered By: Ko Crowder DS: Summary Time Spent with Patient providing and/or coordinating discharge services: Greater than 30 minutes Status at Discharge Functional status at discharge: uses cane/walker Overall status at discharge: patient is progressing back to baseline Mental Status: mental status grossly normal Speech and Movement: speech and movement normal Mood: congruent mood Affect: normal affect Exam Narrative Exam Narrative: Margaux is sitting up in her chair. She denies any dyspnea or pain Lungs: bibasilar rales; no rhonchi or wheezing Heart: regular w/ loud holosystolic murmur over LLSB Abdomen: soft, nontender Extremities: trace edema in left lower leg; 2+ to 3+ edema in RLE, area of erythema continues to recede. Right leg wound was undressed for me to review. She has good granulation tissue over the superficial ulcer/maceration of her anterior tibial surface; no purulent drainage Psych Mental Status: mental status grossly normal Speech and Movement: speech and movement normal Mood: congruent mood Affect: normal affect DS: Data Vitals/I&O Vitals and I&O: Vital Signs Temperature 37.4 C 02/04/22 07:32 Temperature Source Tympanic 02/04/22 07:32 Pulse 101 H 02/04/22 08:46 Pulse Rhythm Regular 02/04/22 07:10 Pulse 102 H 01/27/22 18:00 Respiratory Rate 26 H 02/04/22 07:32 Respiratory Effort Non-Labored 02/04/22 07:10 Respiratory Depth Normal 02/04/22 07:10 Respiratory Pattern Normal 02/04/22 07:10 Blood Pressure 133/78 02/04/22 07:32 Blood Pressure Mean 79 01/28/22 05:25 Blood Pressure Position Sitting 01/27/22 08:00 Pulse Oximetry 94 02/04/22 08:46 Oxygen Delivery Method Room Air 02/04/22 12:36 Oxygen Flow Rate 0 02/04/22 12:36 Fraction of Inspired Oxygen (FIO2) 21 01/27/22 16:13 Pain Level 0 02/03/22 23:18 Comment 02/03/22 15:29 Intake & Output 02/03/22 02/04/22 02/04/22 23:59 11:59 23:59 Intake Total 430 / 730 240 / 240 Output Total 2700 / 4075 1000 / 1000 Balance -2270 / -3345 -760 / -760 Weight 86.4 kg Intake: IV 250 / 550 Oral 180 / 180 240 / 240 Output: Urine 2700 / 4075 600 / 600 Stool 400 / 400 Other: Urine Color Light Judy Yellow Urine Appearance Cloudy Clear Urine Odor None Comment two small clots, rn notified Stool Occult Blood Positive Stool Size Moderate Stool Characteristics Liquid Voiding Methods Bedside Commode Data Completed and Pending Labs on day of discharge: Preliminary micro results at discharge 01/30/22 12:30 Blood Culture - Preliminary Blood NO GROWTH 96 HOURS 01/30/22 12:30 Blood Culture - Preliminary Blood NO GROWTH 96 HOURS PFSH All Active Problems Hypomagnesemia (Acute) Medication monitoring encounter (Acute) Palliative care status (Acute) Heme + stool (Acute) Alzheimer disease (Chronic) Acute kidney injury (Acute) Discharge planning issues (Acute) DVT prophylaxis (Acute) Pulmonary edema (Acute) Presence of total right knee joint prosthesis (Acute) Septic shock (Acute) Sepsis syndrome (Acute) Acute dehydration (Acute) Multiple fractures of ribs of right side (Acute) Cellulitis of leg, right (Acute) Pneumonia (Acute) Hyperlipidemia (Acute) ZHANG (dyspnea on exertion) (Acute) Acquired bilateral flat feet (Acute) Left rotator cuff tear arthropathy (Chronic) 80mg Depo-Medrol injection: 08/08/2020, 12/12/2020, 03/27/2021 Left shoulder pain (Acute) Facial basal cell cancer (Acute) Medical History Anemia ASCENDING COLON AVM Basal cell carcinoma of nose BREAST CANCER LEFT Diverticulosis Edema LIMB Foot deformity Hallux valgus Heart murmur SYSTOLIC Heartburn Hip pain, left Macular degeneration Mild memory disturbance Obesity Osteoarthritis of both hands Osteopenia Skin lesion TUBULAR ADENOMAS Uterine prolapse CONGENITAL BODY ASYMMETRY Surgical History Abdominal hysterectomy (~10/2011) PARTIAL Breast, Lumpectomy (12/09/09) LEFT Colonoscopy - IV Sedation (11/19/09) Hx of total knee replacement BILATERAL Recurrent major depression in partial remission (11/19/09) ASCENDING COLON AVM Family History Mother Alzheimer's disease Father Heart disease Lung cancer Sister Cirrhosis of liver Brother Acute myocardial infarction at 58 of NC Brother Diabetes Heart disease NC Brother Heart disease Stroke Son Heart disease age 40 NC with stents Social History Smoking/Tobacco Use Status: Never Smoking risk assessment performed?: Yes Alcohol Intake: current Alcohol Intake frequency: 0-2 drinks per day Drug use: Never Substance use type: does not use Household members: none Current gender identity: female What type of physical activity do you participate in: none Do you feel safe at home: Yes
--- NOTE | 2022-02-04 12:59 | PDOC.HHF2F_ITS ---
Home Health Referral Home Health Orders Clinical synopsis of why skilled professionals are needed: Patient was hospitalized for hypovolemic and septic shock and was found to have cellulitis of her right lower leg and pneumonia. She was treated w/ iv antibiotics (Zosyn and vancomycin) and transitioned to Augmentin and Bactrim. She required some diuresis after she was resuscitated d/t fluid retention and severe edema in her right leg. She now requires wound care and dressing changes to right leg. She needs close monitioring of her anemia and her chf and ckd. She will need nursing to coordinate med changes, follow up labworks and corrdination of her medical care w/ her providers. Registered Nurse: Check all that apply Instruct on new or changed medication(s)/assess compliance: Ordered Assess for exacerbation of medical condition, instruct patient/caregivers on signs and symptoms to report for early detection: Ordered Assess wound for signs and symptoms of infection, instruct on wound care and/or provide skilled wound care consisting of: right lower leg wound/cellulitis Physical Therapist: Check all that apply Increase strength & endurance for safe mobility at home: Ordered To design/establish home maintenance program: Ordered Fall reduction therapy program for patient with history of frequent falls: Ordered Home safety evaluation and teaching/gait training including stair management (if applicable): Ordered Occupational Therapist: Evaluate and treat for patient unable to perform ADL/IADL/self-care: Ordered Upper extremity strengthening, range and motion: Ordered Financial Specialist: Assist with community resources: Ordered Assist with filler leaf cutter long care planning: Ordered Home Bound Status Requires the aid of supportive device (check all that apply): Walker Assistance of another person (Describe assistance and medical necessity): patient requires assistance in performance of her ADL's Patient has a condition such that leaving home is medically contraindicated (Describe): her generalized weakness and her cellulitis of her right leg make travel outside her home compromises her health and increases her risk of worsening her cellulitis Describe why leaving home would require a considerable and taxing effort: Requires frequent rest periods, Confusion and Safety Concerns: describe Encounter Date and Reason: I certify that a FTF encounter for this patient was performed on February 04, 2022 and that such encounter was related to the primary reason the patient requires home health services. The encounter was conducted in the following manner: * By me as the certifying physician, COMPUTER SPECIALIST, PA or * By an inpatient physician, COMPUTER SPECIALIST or PA during an inpatient stay who communicated findings to me, Certification And Authentication I certify that I composed the above information based on my clinical judgment relating to this patient's medical condition and, if applicable, clinical findings communicated to me by the NPP or inpatient physician who performed the FTF encounter. Name of Provider that will be monitoring home health services: Jeanne Mosqueda
--- NOTE | 2022-02-04 13:53 | CMDISCH_ITS ---
- If Service Date Differs Date of service: 02/04/22 Time of Service: 13:53 LACE Index Scoring Tool - Questions: Length of Stay (in days): 7 - 13 Acuity (Admit via E.D.?): Yes Comorbidities: Any Tumor (Basal Cell Carcinoma of nose) E.D. Visits: 2 - Answers: Total Score: 12 Risk of Readmission: High Risk Care Management Discharge Reason for Hospitalization: Sepsis syndrome, dehydration, cellulitis, PNA Discharge Plan: Margaux is discharged home via private vehicle with son. Family will provide 29/09 caregiver support. Margaux will follow up with her PCP and discharge plan of care as prescribed. New RX's are transmitted to [place]'s. New [facility] services are ordered. [facility] referral is placed. PCP follow up is 02/13/22, as scheduled. Son purchased a commode locally, prior to discharge. Patient/Family Education Needs: Review discharge instructions, limitations, medications and plan to follow up with community providers and discharge plan. Discuss ask me three and goals of self care. Services Needed at Discharge: Home Delivered Meals ([facility] referral is placed), Home Health Care Services (New [facility] RN/PT/OT/[facility] [employer], Repeat labs recommended in 1 week. Patient and family will need assistance with community resources and termite technician planning.)
== END 2022-02-04 15:13 | disposition home health service (06) | DRG 871 ==
LOC: ER 01-23 02:14 → ICU 01-23 02:25 → MS 01-28 07:21
PROVIDERS: Family Medicine; Internal Medicine; Admitting Provider Family Medicine; Emergency Provider Emergency Medicine; PCP Family Medicine; Visit Provider Family Medicine
DX: A41.9 Sepsis, unspecified organism (principal); G92.8 Other toxic encephalopathy; J18.9 Pneumonia, unspecified organism; J81.0 Acute pulmonary edema; J96.01 Acute respiratory failure with hypoxia; R57.1 Hypovolemic shock; L03.115 Cellulitis of right lower limb; N17.9 Acute kidney failure, unspecified; M62.82 Rhabdomyolysis; L97.818 Non-pressure chronic ulcer of other part of right lower leg with other specified severity; E86.0 Dehydration; E78.5 Hyperlipidemia, unspecified; M21.42 Flat foot [pes planus] (acquired), left foot; M21.41 Flat foot [pes planus] (acquired), right foot; M75.102 Unspecified rotator cuff tear or rupture of left shoulder, not specified as traumatic; D64.9 Anemia, unspecified; E66.9 Obesity, unspecified; Z85.3 Personal history of malignant neoplasm of breast; Z96.653 Presence of artificial knee joint, bilateral; Z68.34 Body mass index [BMI] 34.0-34.9, adult; E87.6 Hypokalemia; R74.01 Elevation of levels of liver transaminase levels; R19.7 Diarrhea, unspecified; G30.8 Other Alzheimer's disease; F02.A0 Dementia in other diseases classified elsewhere, mild, without behavioral disturbance, psychotic disturbance, mood disturbance, and anxiety; R13.12 Dysphagia, oropharyngeal phase; I87.2 Venous insufficiency (chronic) (peripheral); R19.5 Other fecal abnormalities; Z86.73 Personal history of transient ischemic attack (TIA), and cerebral infarction without residual deficits; Q27.39 Arteriovenous malformation, other site
CPT/HCPCS: 36415; 36591; 71250; 76604; 80048; 80053; 80076; 82550; 83690; 84145; 85027; 85652; 86850; 86900; 86901; 87040; 87081; 87449; 87493; 87505; 87635; 87637; 92610; 93005; 93971; 96361; 96365; 96366; 96368; 96375; 96376; 97110; 97162; 97530; 99223; 99232; 99285; 70450; 71045; 71046; 73700; 74176; 80202; 81003; 81015; 82607; 82728; 82746; 83540; 83550; 83605; 83735; 83880; 84132; 84443; 84484; 85014; 85018; 85025; 85610; 86140; 87070; 87086; 87899; 93010; 93306; 94640; 99226; 99231; 99233; 99239; 99291; J0456; J1644; J1885; J1940; J1941; J2543; J3475; J3480; J3490; J7613; J7614

== ENCOUNTER 2022-02-08 18:04 | Emergency (ER) | payer MEDICARE, SELFPAY ==
[2022-02-08] VITALS (48 sets, daily range): BP systolic 60–187; BP diastolic 44–144; PULSE 63–129; RESP 16–30; TEMP 36.9; O2SAT 93–100
--- NOTE | 2022-02-08 18:00 | RT.EKG_ITS ---
APPROVED REPORT Exam: Resting ECG Reason for Exam: unwellness Patient Location: E HR:84 bpm ECG Measurements Heart Rate 84 AXIS CA 152 P 22 QRSd 94 QRS -45 QT 447 T -10 QTc 528 Conclusion Sinus rhythm...normal P axis, V-rate 60- 99 Left anterior fascicular block...axis(240,-40), init forces inf Low voltage, precordial leads...precordial leads <1.0mV Prolonged QT interval...QTc >500mS sinus rhythm, left axis, non ischemic
--- NOTE | 2022-02-08 18:48 | ED.GENADUL_ITS ---
Discharge Plan Disposition Patient Disposition: Home Condition: Improving Discharge Details Clinical Impression: Hypotension Primary Care Provider: Jeanne Mosqueda V ED Provider: Geri Lewis Home Meds and New Rx's Prescriptions: Continued biotin 10 mg tablet 10 mg PO DAILY (DME) Custom Accomodative Shoes Qty: 1 0RF Rx Instructions: Please fit and make bilateral accomodative shoes for extreme width of feet with collapse and medial prominence. multivitamin [Daily Vitamin] 1 EACH tablet 1 ea PO DAILY calcium carbonate-vitamin D3 [Calcium 600 with Vitamin D3] 1 EACH tablet 1 ea PO BID aspirin [Aspirin Low-Strength] 81 MG tablet,chewable 81 mg PO DAILY glucosamine-chondroitin [Osteo Bi-Flex] 1 EACH tablet 1 ea PO BID memantine 5 mg Tablet 5 mg PO BID amoxicillin-pot clavulanate 875-125 mg Tablet 1 tab PO BID Qty: 20 0RF furosemide 40 mg Tablet 40 mg PO BID@0830,1600 Qty: 60 0RF mirtazapine 15 mg Tablet 7.5 mg PO QPM Qty: 15 0RF nystatin 100,000 unit/gram Powder 1 applic topical BID Qty: 60 0RF sucralfate 1 gram Tablet 1 g PO AC & HS Qty: 120 0RF sulfamethoxazole-trimethoprim 800-160 mg Tablet 1 tab PO BID Qty: 20 0RF spironolactone 25 mg Tablet 25 mg PO DAILY Qty: 30 0RF potassium chloride 20 mEq Tablet,Er Particles/Crystals 20 meq PO DAILY Qty: 30 0RF pantoprazole 40 mg Tablet,Delayed Release (Dr/Ec) 40 mg PO HS Qty: 30 0RF magnesium 250 mg tablet 250 mg PO DAILY Qty: 30 0RF Discharge Instructions Instructions: Hypotension (ED) Additional Instructions: Your blood tests, urinalysis and imaging today are reassuring and show no evidence of acute concerning or significant findings. Drink plenty of fluids and get plenty of rest. Continue all of your medications as directed. Follow-up with your primary care doctor in 1 week. Return to the emergency department with any worsening or new concerning symptoms. Discharge Data Discharge Date/Time-TO BE ENTERED AT DEPARTURE: 02/08/22 22:55 Discharge Physician: Geri Lewis Medical Decision Making <Enrique Kaur MD - Last Filed: 02/08/22 18:54> 81-year-old female recent admission for pneumonia and cellulitis resulted in septic shock, presents with multiple low blood pressure readings per home health aide today, as low as the 80s and 90s systolic. Improved upon arrival. No chest pain, mild shortness of breath, had desaturated to the high 80s was placed on nasal cannula; evidence of chronic. Peripheral edema bilateral lower extremities, improving cellulitis of right lower extremity, patient is alert oriented currently hemodynamically stable systolics near 100; concern the patient may still be fluid overloaded despite relatively low blood pressure given peripheral edema and shortness of breath requiring nasal cannula. Before any fluid resuscitation will be initiated for blood pressure will obtain x-ray to assess for pulmonary congestion. Concern for chronic upper GI bleed given dark stool. Will assess H&H, basic labs, chest x-ray close reassessment disposition pending results <Geri Lewis, - Last Filed: 02/12/22 15:51> Dr. Kaur 81-year-old female recent admission for pneumonia and cellulitis resulted in septic shock, presents with multiple low blood pressure readings per home health aide today, as low as the 80s and 90s systolic. Improved upon arrival. No chest pain, mild shortness of breath, had desaturated to the high 80s was placed on nasal cannula; evidence of chronic. Peripheral edema bilateral lower extremities, improving cellulitis of right lower extremity, patient is alert oriented currently hemodynamically stable systolics near 100; concern the patient may still be fluid overloaded despite relatively low blood pressure given peripheral edema and shortness of breath requiring nasal cannula. Before any fluid resuscitation will be initiated for blood pressure will obtain x-ray to assess for pulmonary congestion. Concern for chronic upper GI bleed given dark stool. Will assess H&H, basic labs, chest x-ray close reassessment disposition pending results Dr. Lewis [phone] --please see Dr. Mccormick's note for initial presentation, exam and plan. Case endorsed to follow-up on urinalysis and to continue to monitor blood pressure with plan for likely discharge home if blood pressure remains stabilize d. Her hemoglobin has improved from last check. Urinalysis negative for infection. Patient's blood pressure has been stable and now much improved at 102/77. Son at bedside feels comfortable taking patient home. Advised to continue antibiotics until finished. Advised to call the PCP office on Thursday for follow-up. Usual and customary return precautions given prior to discharge. Imaging Data Radiologic Study: Radiologist's impression: XR Chest Exam date and time: 02/08/2022 7:01 PM Age: 81 years old Clinical indication: On breathing; Patient HX: Recent pneumonia. No cough or chest pain. TECHNIQUE: Imaging protocol: Radiologic exam of the chest. Views: 1 view. COMPARISON: CT CHEST WO 01/31/2022 6:45 PM FINDINGS: Lungs: No acute lung infiltrates or edema. No residual infiltrative features from patient's recent previous pneumonia. Previous study 01/30/2022 showing mild left basilar consolidation. Pleural spaces: No pleural effusion. Heart/Mediastinum: Normal heart size. Bones/joints: Severe bilateral shoulder joint degeneration and features consistent chronic rotator cuff pathology. Degenerative thoracic spine change and [id number] lower thoracic dextroscoliosis. IMPRESSION: 1. No acute lung infiltrates or edema. 2. No pleural effusion. 3. Degenerative skeletal changes. Lab Data Lab results reviewed: Yes I reviewed the patient's lab results. Labs: Laboratory Tests Range/Units 02/08/22 02/08/22 02/08/22 19:06 19:06 19:06 WBC (4.4-10.8) 10^3/uL 7.46 RBC (3.93-5.22) 10^6/uL 3.10 L Hgb (11.2-15.7) g/dL 9.1 L Hct (36.0-46.0) % 28.2 L MCV (80-95) fL 91 MCH (27.0-33.0) pg 29.4 MCHC (32.0-36.0) % 32.3 RDW (11.7-14.6) % 16.2 H Plt Count (130-400) 10^3/uL 645 H MPV (8.0-11.0) fL 9.5 Immature Gran % 0.4 Neutrophils % 59.1 Lymphocytes % 22.4 Monocytes % 12.2 Eosinophils % 4.0 Basophils % 1.9 Nucleated RBC % (0.0-0.3) % 0.0 Absolute Neutrophils (1.2-6.7) 10^3/uL 4.41 Absolute Lymphocytes (1.2-3.4) 10^3/uL 1.67 Absolute Monocytes (0.1-0.8) 10^3/uL 0.91 H Absolute Eosinophils (0.0-0.7) 10^3/uL 0.30 Absolute Basophils (0.0-0.2) 10^3/uL 0.14 Sodium (136-145) mmol/L 139 Potassium (3.5-5.1) mmol/L 4.1 Chloride (98-107) mmol/L 99 Carbon Dioxide (21.0-32.0) mmol/L 33.6 H Anion Gap (3-11) mmol/L 6.4 BUN (7-18) mg/dL 12 Creatinine (0.55-1.02) mg/dL 1.5 H Est GFR (CKD-EPI 2020) (mL/min/1.73m2) 34.36 Glucose (74-106) mg/dL 94 Calcium (8.5-10.1) mg/dL 8.6 Total Bilirubin (0.2-1.0) mg/dL 0.3 AST (15-37) U/L 70 H ALT (14-59) U/L 66 H Alkaline Phosphatase (46-116) U/L 69 NT-Pro-B Natriuret Pep (<300) pg/mL 1284 H Total Protein (6.4-8.2) g/dL 7.3 Albumin (3.4-5.0) g/dL 2.1 L Urine Color (Yellow) Urine Clarity (Clear) Urine pH (5-8) Ur Specific [place] (1.005-1.025) Urine Protein (Negative) mg/dL Urine Ketones (Negative) mg/dL Urine Blood (Negative) Urine Nitrite (Negative) Urine Bilirubin (Negative) Urine Urobilinogen (Up TO 0.2) EU/dL Ur Leukocyte Esterase (Negative) Urine RBC (0-2) HPF Urine WBC (0-5) HPF Ur Epithelial Cells (Negative) HPF Urine Crystals (Negative) HPF Urine Bacteria (Negative) HPF Urine Casts (Negative) LPF Urine Mucus (Negative) Ur Culture Indicated? Urine Glucose (Negative) mg/dL Range/Units 02/08/22 20:00 WBC (4.4-10.8) 10^3/uL RBC (3.93-5.22) 10^6/uL Hgb (11.2-15.7) g/dL Hct (36.0-46.0) % MCV (80-95) fL MCH (27.0-33.0) pg MCHC (32.0-36.0) % RDW (11.7-14.6) % Plt Count (130-400) 10^3/uL MPV (8.0-11.0) fL Immature Gran % Neutrophils % Lymphocytes % Monocytes % Eosinophils % Basophils % Nucleated RBC % (0.0-0.3) % Absolute Neutrophils (1.2-6.7) 10^3/uL Absolute Lymphocytes (1.2-3.4) 10^3/uL Absolute Monocytes (0.1-0.8) 10^3/uL Absolute Eosinophils (0.0-0.7) 10^3/uL Absolute Basophils (0.0-0.2) 10^3/uL Sodium (136-145) mmol/L Potassium (3.5-5.1) mmol/L Chloride (98-107) mmol/L Carbon Dioxide (21.0-32.0) mmol/L Anion Gap (3-11) mmol/L BUN (7-18) mg/dL Creatinine (0.55-1.02) mg/dL Est GFR (CKD-EPI 2020) (mL/min/1.73m2) Glucose (74-106) mg/dL Calcium (8.5-10.1) mg/dL Total Bilirubin (0.2-1.0) mg/dL AST (15-37) U/L ALT (14-59) U/L Alkaline Phosphatase (46-116) U/L NT-Pro-B Natriuret Pep (<300) pg/mL Total Protein (6.4-8.2) g/dL Albumin (3.4-5.0) g/dL Urine Color (Yellow) Yellow Urine Clarity (Clear) Sl Cloudy Urine pH (5-8) 7.0 Ur Specific [place] (1.005-1.025) 1.015 Urine Protein (Negative) mg/dL Negative Urine Ketones (Negative) mg/dL Negative Urine Blood (Negative) Trace-intact H Urine Nitrite (Negative) Negative Urine Bilirubin (Negative) Negative Urine Urobilinogen (Up TO 0.2) EU/dL 0.2 Ur Leukocyte Esterase (Negative) Negative Urine RBC (0-2) HPF 0-2 Urine WBC (0-5) HPF Negative Ur Epithelial Cells (Negative) HPF Moderate Urine Crystals (Negative) HPF Negative Urine Bacteria (Negative) HPF Negative Urine Casts (Negative) LPF Negative Urine Mucus (Negative) Negative Ur Culture Indicated? No Urine Glucose (Negative) mg/dL Negative Sign Out No HPI <Enrique Kaur MD - Last Filed: 02/08/22 18:54> General Date/Time Provider Initiated Documentation: 02/08/22 18:21 . HPI Narrative: 81-year-old female recent admission for pneumonia and cellulitis resulting in se ptic shock presents referred in by home health aide who noted multiple low blood pressure readings in the 80s and 90s systolic today. Patient continues to have dark bowel movements. Denies chest pain slight shortness of breath oxygen desaturation as low as the high 80s at home. Related Data Home Medications Medication Instructions Recorded Confirmed aspirin 81 mg chewable tablet 81 mg PO DAILY 02/17/13 02/08/22 (Aspirin Low-Strength) calcium carbonate 600 mg-vitamin 1 ea PO BID 02/17/13 02/08/22 D3 5 mcg (200 unit) tablet (Calcium 600 with Vitamin D3) glucosamine-chondroitin 250 mg-200 1 ea PO BID 02/17/13 02/08/22 mg tablet (Osteo Bi-Flex) multivitamin (Daily Vitamin tablet) 1 ea PO DAILY 02/17/13 02/08/22 Custom Accomodative Shoes #1 ea 10/24/19 08/12/21 biotin 10 mg tablet 10 mg PO DAILY 10/24/19 02/08/22 memantine 5 mg tablet 5 mg PO BID 01/23/22 02/08/22 amoxicillin 875 mg-potassium 1 tab PO BID #20 tabs 02/04/22 02/08/22 clavulanate 125 mg tablet furosemide 40 mg tablet 40 mg PO BID@0830,1600 #60 tabs 02/04/22 02/08/22 magnesium 250 mg tablet 250 mg PO DAILY #30 tabs 02/04/22 02/08/22 mirtazapine 15 mg tablet 7.5 mg PO QPM #15 tabs 02/04/22 02/08/22 nystatin 100,000 unit/gram topical 1 applic topical BID #60 grams 02/04/22 02/08/22 powder pantoprazole 40 mg tablet,delayed 40 mg PO HS #30 tabs 02/04/22 02/08/22 release potassium chloride 20 mEq 20 meq PO DAILY #30 tabs 02/04/22 02/08/22 tablet,extended release(part/cryst) spironolactone 25 mg tablet 25 mg PO DAILY #30 tabs 02/04/22 02/08/22 sucralfate 1 gram tablet 1 g PO AC & HS #120 tabs 02/04/22 02/08/22 sulfamethoxazole 800 1 tab PO BID #20 tabs 02/04/22 02/08/22 mg-trimethoprim 160 mg tablet Previous Rx's Medication Instructions Recorded Custom Accomodative Shoes #1 ea 10/24/19 amoxicillin 875 mg-potassium 1 tab PO BID #20 tabs 02/04/22 clavulanate 125 mg tablet furosemide 40 mg tablet 40 mg PO BID@0830,1600 #60 tabs 02/04/22 magnesium 250 mg tablet 250 mg PO DAILY #30 tabs 02/04/22 mirtazapine 15 mg tablet 7.5 mg PO QPM #15 tabs 02/04/22 nystatin 100,000 unit/gram topical 1 applic topical BID #60 grams 02/04/22 powder pantoprazole 40 mg tablet,delayed 40 mg PO HS #30 tabs 02/04/22 release potassium chloride 20 mEq 20 meq PO DAILY #30 tabs 02/04/22 tablet,extended release(part/cryst) spironolactone 25 mg tablet 25 mg PO DAILY #30 tabs 02/04/22 sucralfate 1 gram tablet 1 g PO AC & HS #120 tabs 02/04/22 sulfamethoxazole 800 1 tab PO BID #20 tabs 02/04/22 mg-trimethoprim 160 mg tablet Allergies Allergy/AdvReac Type Severity Reaction Status Date / Time No Known Allergies Allergy Verified 11/10/21 10:02 General Stated Complaint: GenMedical MIKEY: 3 Review of Systems <Enrique Kaur MD - Last Filed: 02/08/22 18:54> Narrative: Review of Systems Constitutional: negative Eyes: negative ENT: negative Cardiovascular: Low blood pressure Respiratory: negative Gastrointestinal: Dark stool : negative Musculoskeletal: negative Skin: negative Neurologic: negative Psych: negative PFSH <Enrique Kaur MD - Last Filed: 02/08/22 18:54> All Active Problems (Updated 02/08/22 @ 22:39 by Geri Lewis DO) Hypotension (Acute) Hypomagnesemia (Acute) Medication monitoring encounter (Acute) Palliative care status (Acute) Heme + stool (Acute) Alzheimer disease (Chronic) Presence of total right knee joint prosthesis (Acute) Multiple fractures of ribs of right side (Acute) Cellulitis of leg, right (Acute) Hyperlipidemia (Acute) ZHANG (dyspnea on exertion) (Acute) Acquired bilateral flat feet (Acute) Left rotator cuff tear arthropathy (Chronic) 80mg Depo-Medrol injection: 08/08/2020, 12/12/2020, 03/27/2021 Left shoulder pain (Acute) Facial basal cell cancer (Acute) Medical History Anemia ASCENDING COLON AVM Basal cell carcinoma of nose BREAST CANCER LEFT Diverticulosis Edema LIMB Foot deformity Hallux valgus Heart murmur SYSTOLIC Heartburn Hip pain, left Macular degeneration Mild memory disturbance Obesity Osteoarthritis of both hands Osteopenia Skin lesion TUBULAR ADENOMAS Uterine prolapse CONGENITAL BODY ASYMMETRY Surgical History Abdominal hysterectomy (~10/2011) PARTIAL Breast, Lumpectomy (12/09/09) LEFT Colonoscopy - IV Sedation (11/19/09) Hx of total knee replacement BILATERAL Recurrent major depression in partial remission (11/19/09) ASCENDING COLON AVM Family History Mother Alzheimer's disease Father Heart disease Lung cancer Sister Cirrhosis of liver Brother Acute myocardial infarction at 58 of [place] Brother Diabetes Heart disease [place] Brother Heart disease Stroke Son Heart disease age 40 [place] with stents Social History Smoking/Tobacco Use Status: Never Smoking risk assessment performed?: Yes Alcohol Intake: current Alcohol Intake frequency: 0-2 drinks per day Drug use: Never Substance use type: does not use Household members: none Current gender identity: female What type of physical activity do you participate in: none Do you feel safe at home: Yes Do you feel safe in your relationship?: Yes Exam <Enrique Kaur MD - Last Filed: 02/08/22 18:54> Narrative Exam Narrative: Physical Examination General: alert, awake, cooperative, resting comfortably, no acute distress HEENT: normocephalic, atraumatic; PERRL, EOM intact, conjunctiva normal; no nasal discharge; moist mucous membranes, oral and pharyngeal mucosa normal, tolerating secretions Neck: supple, trachea midline; full ROM Chest: normal to inspection Respiratory: normal respiratory effort, speaking in full sentences, clear to auscultation, no wheezing, rales or rhonchi Cardiac: regular rate, regular rhythm, S1S2 intact, no murmurs rubs or gallops GI: abdomen soft, non-tender, non-distended; no palpable mass or hepatosplenomegaly Skin: no lesions, rashes or trauma appreciated Neuro: AAOx3, normal speech, moving all extremities Extremities: Chronic appearing peripheral edema, well-healing cellulitis of right lower extremity Psych: Appropriate mood and affect Course <Enrique Kaur MD - Last Filed: 02/08/22 18:54> Vital Signs Vital signs: Vital Signs Temperature 36.9 C 02/08/22 18:06 Pulse 87 02/08/22 18:06 Respiratory Rate 18 02/08/22 18:06 Blood Pressure 99/61 L 02/08/22 18:06 Pulse Oximetry 97 02/08/22 18:06 Temperature 36.9 C 02/08/22 18:06 Temperature Source Oral 02/08/22 18:06 Pulse 87 02/08/22 18:06 Respiratory Rate 18 02/08/22 18:06 Respiratory Effort Non-Labored 02/08/22 18:09 Blood Pressure 99/61 L 02/08/22 18:06 Blood Pressure Position Sitting 02/08/22 18:06 Pulse Oximetry 97 02/08/22 18:06 Oxygen Delivery Method Room Air 02/08/22 18:06 Oxygen Flow Rate 0 02/08/22 18:06 Sign Out <Enrique Kaur MD - Last Filed: 02/08/22 18:54> Sign Out Data: Sign Out Comment: hypotension at home, improving here; trial of fluids, pending labs UA and recheck BP for dc home v obs Last updated by Enrique Kaur MD at 02/08/22 19:58 PAWSS <Enrique Kaur MD - Last Filed: 02/08/22 18:54> Have you Been Recently Intoxicated or Drunk Within the Last 30 days?: No Have you Ever Experienced Previous Episodes of Alcohol Withdrawal?: No Have you ever Experienced Withdrawal Seizures?: No Have you ever Experienced Delirium Tremens(DT)s?: No Have you ever undergone Alcohol Rehabilitation Treatment (i.e, inpt ot outpatient treatment programs)?: No Have you ever Experienced Blackouts?: No Have you ever Combined Alcohol with other Downers within the last 90 days?: No Have you ever Combined Alcohol with any other Substance of Abuse during the last 90 days?: No Positive Blood Alcohol level on Presentation? [PCS.BAL]: No Evidence of Increased Autonomic Activity (i.e. HR>120, tremor, sweating, agitation, nausea)?: No Result: 0 <Geri Lewis DO - Last Filed: 02/12/22 15:51> Result: 0
[2022-02-08 19:13] LABS: Abs Immature Grans 0.03 10^3/uL (0.0-0.06); Absolute Basophil Count 0.14 10^3/uL (0.0-0.2); Absolute Lymphocyte Count 1.67 10^3/uL (1.2-3.4); Absolute Monocyte Count 0.91 10^3/uL (0.1-0.8); Absolute Neutrophil Count 4.41 10^3/uL (1.2-6.7); Basophils % 1.9; HCT 28.2 % (36.0-46.0); HGB 9.1 g/dL (11.2-15.7); Immature Grans % 0.4; Lymphocytes % 22.4; MCH 29.4 pg (27.0-33.0); MCHC 32.3 % (32.0-36.0); MCV 91 fL (80-95); MPV 9.5 fL (8.0-11.0); Monocytes % 12.2; Neutrophils % 59.1; Platelet Count 645 10^3/uL (130-400); RDW 16.2 % (11.7-14.6); WBC 7.46 10^3/uL (4.4-10.8)
--- NOTE | 2022-02-08 19:25 | DI.RAD_ITS ---
Exam(s) XR PORTABLE CHEST AP EXAM: XR PORTABLE CHEST AP CLINICAL HISTORY: recent pneumonia TECHNIQUE: COMPARISON: CR,XR XR PORTABLE CHEST AP from 01/30/2022 FINDINGS: Portable semi upright chest was obtained. Previously described left basilar radiodensities seen on r adiograph of January 30 appear to have resolved. Lungs are generally clear with mild chronic scar ring.no cardiomegaly. No pleural effusion on this frontal film. IMPRESSION: No evidence of acute process RADIATION DOSE DELIVERED: Total DLP
[2022-02-08 19:32] LABS: ALT 66 U/L (14-59); AST 70 U/L (15-37); Albumin 2.1 g/dL (3.4-5.0); Alkaline Phosphatase 69 U/L (46-116); Anion Gap 6.4 mmol/L (3-11); BUN 12 mg/dL (7-18); Bilirubin, Total 0.3 mg/dL (0.2-1.0); CO2 33.6 mmol/L (21.0-32.0); CREATININE 1.5 mg/dL (0.55-1.02); Calcium 8.6 mg/dL (8.5-10.1); Chloride 99 mmol/L (98-107); Estimated GFR 34.36 (mL/min/1.73m2); Glucose 94 mg/dL (74-106); Potassium 4.1 mmol/L (3.5-5.1); Sodium 139 mmol/L (136-145); Total Protein 7.3 g/dL (6.4-8.2)
[2022-02-08 19:43] LABS: NT-proBNP 1284 pg/mL (<300)
--- NOTE | 2022-02-08 19:45 | DI.VRAD_ITS ---
PROCEDURE INFORMATION: Exam: XR Chest Exam date and time: 02/08/2022 7:01 PM Age: 81 years old Clinical indication: On breathing; Patient HX: Recent pneumonia. No cough or chest pain. TECHNIQUE: Imaging protocol: Radiologic exam of the chest. Views: 1 view. COMPARISON: CT CHEST WO 01/31/2022 6:45 PM FINDINGS: Lungs: No acute lung infiltrates or edema. No residual infiltrative features from patient's recent previous pneumonia. Previous study 01/30/2022 showing mild left basilar consolidation. Pleural spaces: No pleural effusion. Heart/Mediastinum: Normal heart size. Bones/joints: Severe bilateral shoulder joint degeneration and features consistent chronic rotator cuff pathology. Degenerative thoracic spine change and [id number] lower thoracic dextroscoliosis. IMPRESSION: 1. No acute lung infiltrates or edema. 2. No pleural effusion. 3. Degenerative skeletal changes. Dictated and Authenticated by: Venkat Clark MD. Ordering:DICK Nunez MD
[2022-02-08] MEDS: Normal Saline 500 ML 1000 ML IV (19:52)
[2022-02-08 20:08] LABS: Bilirubin Negative (Negative); Blood Trace-intact (Negative); Clarity Sl Cloudy (Clear); Glucose Negative (Negative); Ketones Negative (Negative); Leukocyte Esterase Negative (Negative); Nitrite Negative (Negative); Specific Gravity 1.015 (1.005-1.025); Urobilinogen 0.2 EU/dL (Up TO 0.2)
[2022-02-08 20:10] LABS: Bacteria Negative HPF (Negative); C & S Indicated? No; Casts Negative LPF (Negative); Crystals Negative HPF (Negative); Epithelial Cells Moderate HPF (Negative); Mucus Negative (Negative); RBC 0-2 HPF (0-2); WBC Negative HPF (0-5)
[2022-02-10 10:23] LABS: C-Reactive Protein 3.17 mg/dL (0.0-0.3)
== END 2022-02-08 22:55 | disposition home or self-care (01) ==
PROVIDERS: Emergency Medicine; Emergency Provider Physician Assistant; PCP Family Medicine
DX: I95.9 Hypotension, unspecified (principal); L03.115 Cellulitis of right lower limb; R06.02 Shortness of breath; Z79.82 Long term (current) use of aspirin
CPT/HCPCS: 36415; 80053; 93005; 99284; 71045; 81003; 81015; 83880; 85025; 86140; 93010; 99285

== ENCOUNTER 2022-02-11 17:52 | Outpatient (REF) | payer MEDICARE, SELFPAY ==
[2022-02-11 16:53] LABS: Abs Immature Grans 0.06 10^3/uL (0.0-0.06); Absolute Basophil Count 0.16 10^3/uL (0.0-0.2); Absolute Eosinophil Count 0.55 10^3/uL (0.0-0.7); Absolute Monocyte Count 0.81 10^3/uL (0.1-0.8); Basophils % 1.7; HCT 33.7 % (36.0-46.0); HGB 10.1 g/dL (11.2-15.7); Immature Grans % 0.7; Lymphocytes % 22.9; MCH 27.7 pg (27.0-33.0); MCV 92 fL (80-95); MPV 9.8 fL (8.0-11.0); Monocytes % 8.8; Neutrophils % 59.9; RBC 3.65 10^6/uL (3.93-5.22); RDW 15.9 % (11.7-14.6); RDW-SD 53.8 fL; WBC 9.18 10^3/uL (4.4-10.8)
[2022-02-11 17:03] LABS: ESR 105 mm/hr (0-30)
[2022-02-11 17:23] LABS: ALT 70 U/L (14-59); AST 65 U/L (15-37); Albumin 2.9 g/dL (3.4-5.0); Alkaline Phosphatase 84 U/L (46-116); Anion Gap 8.6 mmol/L (3-11); BUN 17 mg/dL (7-18); Bilirubin, Total 0.3 mg/dL (0.2-1.0); C-Reactive Protein 2.16 mg/dL (0.0-0.3); CO2 31.4 mmol/L (21.0-32.0); CREATININE 2.1 mg/dL (0.55-1.02); Calcium 9.5 mg/dL (8.5-10.1); Chloride 95 mmol/L (98-107); Estimated GFR 22.95 (mL/min/1.73m2); Glucose 112 mg/dL (74-106); Magnesium 2.2 mg/dL (1.8-2.4); Potassium 4.9 mmol/L (3.5-5.1); Sodium 135 mmol/L (136-145); Total Protein 8.5 g/dL (6.4-8.2)
[2022-02-11 17:32] LABS: Platelet Count 817 10^3/uL (130-400)
== END 2022-02-11 17:53 | disposition home or self-care (01) ==
LOC: NCHCN 17:52
PROVIDERS: PCP Family Medicine; Visit Provider Family Medicine
DX: A41.9 Sepsis, unspecified organism (principal); L03.90 Cellulitis, unspecified
CPT/HCPCS: 80053; 85652; 83735; 85025; 86140

== ENCOUNTER 2022-02-13 15:05 | Outpatient (REF) | payer MEDICARE, SELFPAY ==
[2022-02-13 20:01] LABS: Abs Immature Grans 0.06 10^3/uL (0.0-0.06); Absolute Basophil Count 0.13 10^3/uL (0.0-0.2); Absolute Eosinophil Count 0.46 10^3/uL (0.0-0.7); Absolute Lymphocyte Count 1.59 10^3/uL (1.2-3.4); Absolute Monocyte Count 0.88 10^3/uL (0.1-0.8); Absolute Neutrophil Count 6.19 10^3/uL (1.2-6.7); Basophils % 1.4; Eosinophils % 4.9; HCT 32.2 % (36.0-46.0); HGB 10.1 g/dL (11.2-15.7); Immature Grans % 0.6; Lymphocytes % 17.1; MCH 28.1 pg (27.0-33.0); MCHC 31.4 % (32.0-36.0); MCV 89 fL (80-95); MPV 9.9 fL (8.0-11.0); Monocytes % 9.5; Neutrophils % 66.5; RDW 15.5 % (11.7-14.6); RDW-SD 50.5 fL; WBC 9.31 10^3/uL (4.4-10.8)
[2022-02-13 20:09] LABS: Platelet Count 774 10^3/uL (130-400)
[2022-02-13 20:22] LABS: Anion Gap 7.9 mmol/L (3-11); BUN 25 mg/dL (7-18); CO2 30.1 mmol/L (21.0-32.0); CREATININE 2.1 mg/dL (0.55-1.02); Calcium 9.7 mg/dL (8.5-10.1); Chloride 94 mmol/L (98-107); Estimated GFR 22.95 (mL/min/1.73m2); Glucose 108 mg/dL (74-106); NT-proBNP 180 pg/mL (<300); Potassium 5.6 mmol/L (3.5-5.1); Sodium 132 mmol/L (136-145)
== END 2022-02-13 15:06 | disposition home or self-care (01) ==
LOC: NCHCN 15:05
PROVIDERS: PCP Family Medicine; Visit Provider Nurse Practitioner Family
DX: D47.3 Essential (hemorrhagic) thrombocythemia (principal); D64.9 Anemia, unspecified; R06.00 Dyspnea, unspecified; R06.02 Shortness of breath; L03.115 Cellulitis of right lower limb
CPT/HCPCS: 80048; 83880; 85025

== ENCOUNTER 2022-02-20 15:58 | Outpatient (REF) | payer MEDICARE, SELFPAY ==
[2022-02-20 16:30] LABS: HGB 8.9 g/dL (11.2-15.7); MCH 27.4 pg (27.0-33.0); MCHC 30.7 % (32.0-36.0); MCV 89 fL (80-95); MPV 9.4 fL (8.0-11.0); Platelet Count 570 10^3/uL (130-400); RBC 3.25 10^6/uL (3.93-5.22); RDW 15.2 % (11.7-14.6); RDW-SD 49.9 fL
[2022-02-20 16:34] LABS: ESR 59 mm/hr (0-30)
[2022-02-20 17:01] LABS: ALT 37 U/L (14-59); AST 38 U/L (15-37); Albumin 3.2 g/dL (3.4-5.0); Alkaline Phosphatase 78 U/L (46-116); Anion Gap 8.7 mmol/L (3-11); BUN 22 mg/dL (7-18); Bilirubin, Total 0.5 mg/dL (0.2-1.0); C-Reactive Protein 0.59 mg/dL (0.0-0.3); CO2 29.3 mmol/L (21.0-32.0); CREATININE 1.4 mg/dL (0.55-1.02); Calcium 8.9 mg/dL (8.5-10.1); Chloride 97 mmol/L (98-107); Estimated GFR 37.33 (mL/min/1.73m2); Glucose 109 mg/dL (74-106); Potassium 4.1 mmol/L (3.5-5.1); Sodium 135 mmol/L (136-145)
== END 2022-02-20 15:59 | disposition home or self-care (01) ==
LOC: NCHCN 15:58
PROVIDERS: PCP Family Medicine; Visit Provider Family Medicine
DX: A41.9 Sepsis, unspecified organism (principal); L03.90 Cellulitis, unspecified
CPT/HCPCS: 80053; 85027; 85652; 86140

== ENCOUNTER 2022-02-25 14:51 | Outpatient (REF) | payer MEDICARE, SELFPAY ==
[2022-02-25 16:03] LABS: MCH 25.6 pg (27.0-33.0); MCHC 29.6 % (32.0-36.0); MCV 87 fL (80-95); MPV 9.4 fL (8.0-11.0); Platelet Count 499 10^3/uL (130-400); RBC 3.12 10^6/uL (3.93-5.22); RDW 15.9 % (11.7-14.6); RDW-SD 50.4 fL
== END 2022-02-25 14:52 | disposition home or self-care (01) ==
LOC: NCHCN 14:51
PROVIDERS: PCP Family Medicine; Visit Provider Nurse Practitioner Family
DX: D64.9 Anemia, unspecified (principal)
CPT/HCPCS: 85027

== ENCOUNTER → 2022-05-30 09:36 | Outpatient (BNVA) | payer MEDICARE, SELFPAY | PROVIDERS: PCP Family Medicine; Referring Provider Family Medicine; Visit Provider Student in an Organized Health Care Education/Training Program | DX: M75.102 Unspecified rotator cuff tear or rupture of left shoulder, not specified as traumatic (principal); M12.812 Other specific arthropathies, not elsewhere classified, left shoulder | CPT/HCPCS: 20610; J1040 ==